=== PATIENT | female | born 1940 | race Caucasian/White ===

== ENCOUNTER 2023-07-30 22:30 | Emergency (ER) | payer MEDICARE, OTHER ==
[~2023-07-30] VITALS: Ht 172.7 cm; Wt 68.0 kg
[2023-07-30 23:30] VITALS: BP 143/50; TEMP 98.6
[2023-07-30 23:34] VITALS: PULSE 73; RESP 16; O2SAT 93
== END 2023-07-31 00:15 | disposition home or self-care (01) ==
LOC: ER 22:30 → EDBD 22:30 → ER 07-31 00:15
DX: T14.8XXA Other injury of unspecified body region, initial encounter (principal); M79.651 Pain in right thigh; M25.511 Pain in right shoulder; M25.551 Pain in right hip; Z88.2 Allergy status to sulfonamides; W18.39XA Other fall on same level, initial encounter; Y93.89 Activity, other specified; Y92.89 Other specified places as the place of occurrence of the external cause; Y99.8 Other external cause status
CPT/HCPCS: 73030; 73502; 73700; 93005

== ENCOUNTER 2023-11-07 16:11 | Inpatient (IN) | payer MEDICARE, OTHER ==
[~2023-11-07] VITALS: Ht 175.3 cm; Wt 124.7 kg
[2023-11-07 17:00] VITALS: PULSE 79; RESP 17; O2SAT 97
[2023-11-07] MEDS: ALBUTEROL SULF 2.5 MG/0.5ML(0.5%) NEB SOLN NEB ONE (17:45)
[2023-11-07] MEDS: IPRATROPIUM BROM 0.5 MG/2.5ML INH SOL NEB ONE (17:45)
[2023-11-07 17:55] LABS: Basophils % (auto) 0.7 % (0.0-2.0); Hematocrit 28.3 % (36.0-46.0); Hemoglobin 8.7 g/dL (12.2-16.2); Monocytes # (auto) 0.8 10 ^3/uL (0-1.3)
[2023-11-07 17:56] LABS: Basophils # (auto) 0.1 10 ^3/uL (0-0.2); Eosinophils # (auto) 0.2 10 ^3/uL (0-0.8); Lymphocytes # (auto) 1.1 10 ^3/uL (0.4-5.4); Lymphocytes % (auto) 14.5 % (10.0-50.0); Mean Corpuscular Hemoglobin 25.7 pg (28.0-32.0); Mean Corpuscular Hgb Conc. 30.8 g/dL (32.0-36.0); Mean Corpuscular Volume 83.2 fL (80.0-100.0); Monocytes % (auto) 10.9 % (0.0-12.0); Neutrophils # (auto) 5.3 10 ^3/uL (1.6-8.6); Neutrophils % (auto) 71.9 % (37.0-80.0); Red Cell Distribution Width 18.3 % (11.8-14.3); White Blood Cell 7.4 10^3/uL (4.4-10.8)
[2023-11-07 18:09] LABS: INR 1.36 (0.9-1.15); Partial Thromboplastin Time 27.7 SEC (24.5-34.5); Prothrombin Time 14.1 sec (9.3-11.8)
[2023-11-07 18:10] LABS: Alanine Aminotransferase 16 U/L (7-40); Albumin 3.3 g/dL (3.2-4.8); Alkaline Phosphatase 61 U/L (46-116); Anion Gap 5 (5-15); Aspartate Aminotransferase 20 U/L (13-40); BUN/Creatinine Ratio 25.4 (10.0-20.0); Blood Urea Nitrogen 18 mg/dL (9-23); Calcium 9.5 mg/dL (8.5-10.1); Carbon Dioxide 26 mmol/L (20-30); Chloride 113 mmol/L (98-107); Glucose 82 mg/dL (74-106); Potassium 3.8 mmol/L (3.5-5.1); Sodium 144 mmol/L (136-145)
[2023-11-07 18:11] LABS: Bilirubin, Total 0.6 mg/dL (0.2-1.0); Total Protein 5.6 g/dL (5.7-8.2)
[2023-11-07] MEDS: DexAMETHasone SOD PHOS 10MG/1ML VIAL INJ IV ONE (18:29)
[2023-11-07 19:30] VITALS: O2SAT 98
[2023-11-08] VITALS (10 sets, daily range): BP systolic 120–157; BP diastolic 54–75; PULSE 75–96; RESP 17–19; TEMP 97.8–98.3; O2SAT 95–99
[2023-11-08] MEDS: ALBUTEROL SULF 2.5 MG/0.5ML(0.5%) NEB SOLN NEB ONE (00:47)
[2023-11-08] MEDS: IPRATROPIUM BROM 0.5 MG/2.5ML INH SOL NEB ONE (00:47)
[2023-11-08] MEDS ORDERED: ACETAMINOPHEN 325 MG TAB PO PRN (02:30)
[2023-11-08] MEDS ORDERED: DOCUSATE SOD 100 MG CAP PO PRN (02:30)
[2023-11-08] MEDS ORDERED: IPRATROPIUM BROM 0.5 MG/2.5ML INH SOL NEB PRN (02:30)
[2023-11-08] MEDS ORDERED: HYDROcodone-ACET 5/325MG TAB PO PRN (02:30)
[2023-11-08] MEDS ORDERED: DEXTROSE (50%) 50ML SYRG IV PRN (02:30)
[2023-11-08] MEDS ORDERED: MORPHINE SULFATE INJ 2 MG/ml SYRG IV PRN (02:30)
[2023-11-08] MEDS ORDERED: ALBUTEROL SULF 2.5 MG/0.5ML(0.5%) NEB SOLN NEB PRN (02:30)
[2023-11-08] MEDS ORDERED: NITROGLYCERIN 0.4 MG SL TAB SL PRN (02:30)
[2023-11-08] MEDS ORDERED: ONDANSETRON HCL 4 MG/2 ML VIAL IV PRN (02:30)
[2023-11-08] MEDS: IOHEXOL 350 MG/ML 100ML IJ ONE (03:23)
[2023-11-08 03:48] LABS: Basophils # (auto) 0 10 ^3/uL (0-0.2); Basophils % (auto) 0.3 % (0.0-2.0); Eosinophils # (auto) 0 10 ^3/uL (0-0.8); Eosinophils % (auto) 0.1 % (0.0-7.0); Hemoglobin 8.5 g/dL (12.2-16.2); Lymphocytes # (auto) 0.4 10 ^3/uL (0.4-5.4); Mean Corpuscular Volume 82.4 fL (80.0-100.0); Monocytes # (auto) 0.1 10 ^3/uL (0-1.3); Red Blood Cells 3.32 10^6/uL (4.0-5.20)
[2023-11-08 03:50] LABS: Hematocrit 27.3 % (36.0-46.0); Lymphocytes % (auto) 6.2 % (10.0-50.0); Mean Corpuscular Hemoglobin 25.6 pg (28.0-32.0); Mean Corpuscular Hgb Conc. 31.1 g/dL (32.0-36.0); Monocytes % (auto) 1.6 % (0.0-12.0); Neutrophils # (auto) 5.9 10 ^3/uL (1.6-8.6); Neutrophils % (auto) 91.8 % (37.0-80.0); Red Cell Distribution Width 17.8 % (11.8-14.3); White Blood Cell 6.4 10^3/uL (4.4-10.8)
[2023-11-08 04:03] LABS: Alanine Aminotransferase 15 U/L (7-40); Albumin 3.1 g/dL (3.2-4.8); Alkaline Phosphatase 56 U/L (46-116); Anion Gap 5 (5-15); Aspartate Aminotransferase 17 U/L (13-40); BUN/Creatinine Ratio 30.6 (10.0-20.0); Blood Urea Nitrogen 22 mg/dL (9-23); Calcium 9.3 mg/dL (8.7-10.4); Carbon Dioxide 25 mmol/L (20-30); Chloride 111 mmol/L (98-107); Glucose 240 mg/dL (74-106); Potassium 4.3 mmol/L (3.5-5.1); Sodium 141 mmol/L (136-145)
[2023-11-08 04:04] LABS: Bilirubin, Total 0.6 mg/dL (0.2-1.0); Total Protein 5.6 g/dL (5.7-8.2)
[2023-11-08] MEDS: methylPREDNISolone SOD SUCC 40 MG/ML VL IV SCH (05:26)
[2023-11-08] MEDS: SODIUM CHLOR 0.9% PF (SALINE LOCK) 10ML VIAL/SYR IV SCH (05:26)
[2023-11-08] MEDS ORDERED: METH2.5T62 PO (06:10)
[2023-11-08] MEDS ORDERED: FOLI-119 PO (06:10)
[2023-11-08] MEDS ORDERED: LOSA-534 PO (06:10)
[2023-11-08] MEDS ORDERED: FUR20T PO (06:10)
[2023-11-08] MEDS ORDERED: LEVO125T7 PO (06:10)
[2023-11-08] MEDS: LEVOTHYROXINE SODIUM 50 MCG TAB PO SCH (06:34)
[2023-11-08] MEDS: ACCU-CHEK COMFORT CURVE STRIP VI SCH (06:38)
[2023-11-08] MEDS ORDERED: TIOT1AER2 INH (06:40)
[2023-11-08] MEDS ORDERED: FLUT1AER13 PO (06:40)
[2023-11-08] MEDS: InsuLIN REG 1unit/0.01ml Soln (100units/ml) SC SCH (06:47)
[2023-11-08] MEDS: MULTIPLE VITAMIN TAB PO SCH (09:22)
[2023-11-08] MEDS: FOLIC ACID 1 MG TAB PO SCH (09:22)
[2023-11-08] MEDS: FAMOTIDINE (10MG/ML) 2ML VL IV SCH (09:22)
[2023-11-09] VITALS (9 sets, daily range): BP systolic 139–161; BP diastolic 61–79; PULSE 66–75; RESP 16–20; TEMP 97.2–98.4; O2SAT 96–99
[2023-11-09 05:41] LABS: Basophils # (auto) 0 10 ^3/uL (0-0.2); Basophils % (auto) 0.1 % (0.0-2.0); Eosinophils # (auto) 0 10 ^3/uL (0-0.8); Mean Corpuscular Hemoglobin 25.5 pg (28.0-32.0); Monocytes # (auto) 0.6 10 ^3/uL (0-1.3)
[2023-11-09 05:43] LABS: Hematocrit 27.3 % (36.0-46.0); Hemoglobin 8.4 g/dL (12.2-16.2); Lymphocytes # (auto) 0.7 10 ^3/uL (0.4-5.4); Lymphocytes % (auto) 5.7 % (10.0-50.0); Mean Corpuscular Hgb Conc. 30.6 g/dL (32.0-36.0); Mean Corpuscular Volume 83.3 fL (80.0-100.0); Monocytes % (auto) 5.2 % (0.0-12.0); Neutrophils # (auto) 10.4 10 ^3/uL (1.6-8.6); Red Blood Cells 3.28 10^6/uL (4.0-5.20); Red Cell Distribution Width 18.8 % (11.8-14.3); White Blood Cell 11.7 10^3/uL (4.4-10.8)
[2023-11-09 05:58] LABS: Alanine Aminotransferase 14 U/L (7-40); Alkaline Phosphatase 54 U/L (46-116); Anion Gap 4 (5-15); Aspartate Aminotransferase 15 U/L (13-40); BUN/Creatinine Ratio 25.4 (10.0-20.0); Bilirubin, Total 0.6 mg/dL (0.2-1.0); Blood Urea Nitrogen 17 mg/dL (9-23); Calcium 9.2 mg/dL (8.7-10.4); Carbon Dioxide 25 mmol/L (20-30); Chloride 113 mmol/L (98-107); Glucose 210 mg/dL (74-106); Potassium 4.2 mmol/L (3.5-5.1); Sodium 142 mmol/L (136-145); Total Protein 5.5 g/dL (5.7-8.2)
[2023-11-09] MEDS: LOSARTAN POTASSIUM 50 MG TAB PO ONE (12:45)
[2023-11-09] MEDS: FUROSEMIDE 40 MG/4 ML VIAL IV ONE (12:45)
[2023-11-09] MEDS: methylPREDNISolone SOD SUCC 40 MG/ML VL IV SCH (23:31)
[2023-11-10 00:53] VITALS: BP 146/53; PULSE 67; RESP 20; TEMP 98; O2SAT 97
[2023-11-10 05:22] VITALS: BP 150/65; PULSE 64; RESP 20; TEMP 97.4; O2SAT 96
[2023-11-10 05:52] LABS: Anion Gap 2 (5-15); Carbon Dioxide 28 mmol/L (20-30); Chloride 114 mmol/L (98-107); Potassium 4.3 mmol/L (3.5-5.1); Sodium 144 mmol/L (136-145)
[2023-11-10 05:53] LABS: Calcium 9.1 mg/dL (8.7-10.4)
[2023-11-10 05:58] LABS: BUN/Creatinine Ratio 34.4 (10.0-20.0); Blood Urea Nitrogen 22 mg/dL (9-23); Glucose 207 mg/dL (74-106)
[2023-11-10 05:59] LABS: Magnesium 2.1 mg/dL (1.6-2.6)
[2023-11-10 07:57] VITALS: O2SAT 97
[2023-11-10 08:30] VITALS: PULSE 68; RESP 16
[2023-11-10 09:19] VITALS: BP 146/74; PULSE 62; RESP 21; TEMP 98.5; O2SAT 97
[2023-11-10 10:06] LABS: Urine Bacteria MANY /hpf (None Seen); Urine Blood Negative /uL (Negative); Urine Clarity Turbid (Clear); Urine Color Yellow (Yellow); Urine Mucus FEW (None Seen); Urine Protein, UAD Negative (Negative); Urine Specific Gravity 1.025 (1.001-1.035); Urine Urobilinogen Normal (Negative); Urine WBC 4 /hpf (0 - 5); Urine pH 5.5 (5.0-9.0)
[2023-11-10] MEDS ORDERED: METH4PAK PO (10:54)
[2023-11-10] MEDS ORDERED: CEPH500C PO (11:05)
[2023-11-10 13:00] VITALS: BP 138/87; PULSE 89; RESP 20; TEMP 98; O2SAT 95
[2023-11-10] MEDS: FUROSEMIDE 40 MG/4 ML VIAL IV SCH (13:17)
[2023-11-10] MEDS: CEPHALEXIN 250 MG CAP PO SCH (13:18)
[2023-11-10] MEDS: LOSARTAN POTASSIUM 50 MG TAB PO SCH (13:19)
== END 2023-11-10 14:30 | disposition home health service (06) | DRG 202 ==
LOC: ER 16:11 → TELE 11-08 02:31 → TELE-WESTW 11-08 05:41
PROVIDERS: ADMIT Nurse Practitioner Family; ATTEND Internal Medicine Geriatric Medicine
PROC: 5A09357 Assistance with Respiratory Ventilation, Less than 24 Consecutive Hours, Continuous Positive Airway Pressure (ICD-10-PCS; principal; 2023-11-08)
DX: J45.901 Unspecified asthma with (acute) exacerbation (principal); Z68.41 Body mass index [BMI] 40.0-44.9, adult; I50.9 Heart failure, unspecified; D64.9 Anemia, unspecified; E03.9 Hypothyroidism, unspecified; E11.51 Type 2 diabetes mellitus with diabetic peripheral angiopathy without gangrene; R01.1 Cardiac murmur, unspecified; E66.01 Morbid (severe) obesity due to excess calories; I11.0 Hypertensive heart disease with heart failure; Z88.2 Allergy status to sulfonamides; Z79.899 Other long term (current) drug therapy; R06.03 Acute respiratory distress
CPT/HCPCS: 36415; 71045; 71275; 80048; 80053; 81001; 82962; 83735; 83880; 84443; 84484; 85025; 85379; 85610; 85730; 87086; 93005; 93306; 94640; 94660; 97163; G0378; J1100; J1815; J3490

== ENCOUNTER 2023-11-27 11:03 | Inpatient (IN) | payer MEDICARE, OTHER ==
[~2023-11-27] VITALS: Ht 172.7 cm; Wt 118.0 kg
[2023-11-27] VITALS (7 sets, daily range): BP systolic 120–123; BP diastolic 42–50; PULSE 71–76; RESP 16–20; TEMP 97.9; O2SAT 95–97
[~2023-11-27 11:03] MED LIST: CEPH500C PO; FLUT1AER13 PO; FOLI-119 PO; FUR20T PO; LEVO125T7 PO; LOSA-534 PO; METH2.5T62 PO; METH4PAK PO; TIOT1AER2 INH
[2023-11-27 11:59] LABS: Urine Bacteria None Seen /hpf (None Seen)
[2023-11-27 12:10] LABS: Basophils # (auto) 0.1 10 ^3/uL (0-0.2); Basophils % (auto) 0.7 % (0.0-2.0); Eosinophils # (auto) 0.2 10 ^3/uL (0-0.8); Hematocrit 29.8 % (36.0-46.0); Lymphocytes % (auto) 12.5 % (10.0-50.0); Mean Corpuscular Hemoglobin 26.8 pg (28.0-32.0); Mean Corpuscular Hgb Conc. 30.1 g/dL (32.0-36.0); Monocytes % (auto) 12.5 % (0.0-12.0); Neutrophils # (auto) 5.6 10 ^3/uL (1.6-8.6); Neutrophils % (auto) 72.3 % (37.0-80.0); Red Blood Cells 3.34 10^6/uL (4.0-5.20); White Blood Cell 7.7 10^3/uL (4.4-10.8)
[2023-11-27 12:11] LABS: Red Cell Distribution Width 23.5 % (11.8-14.3)
[2023-11-27 12:17] LABS: Alanine Aminotransferase 20 U/L (7-40); Alkaline Phosphatase 60 U/L (46-116); Anion Gap 6 (5-15); Aspartate Aminotransferase 25 U/L (13-40); BUN/Creatinine Ratio 13.1 (10.0-20.0); Blood Urea Nitrogen 27 mg/dL (9-23); Calcium 7.7 mg/dL (8.5-10.1); Carbon Dioxide 26 mmol/L (20-30); Chloride 106 mmol/L (98-107); Glucose 168 mg/dL (74-106); Potassium 3.5 mmol/L (3.5-5.1); Sodium 138 mmol/L (136-145)
[2023-11-27 12:18] LABS: Albumin 2.3 g/dL (3.2-4.8); Bilirubin, Total 1.3 mg/dL (0.2-1.0); Total Protein 3.9 g/dL (5.7-8.2)
[2023-11-27 13:11] LABS: Urine Blood 1+ /uL (Negative); Urine Budding Yeast MANY /hpf (None Seen); Urine Clarity Ex.Turbid (Clear); Urine Color Orange (Yellow); Urine Mucus FEW (None Seen); Urine Protein, UAD 2+ (Negative); Urine Specific Gravity 1.024 (1.001-1.035); Urine Urobilinogen 2 mg/dL (Negative); Urine WBC 2215 /hpf (0 - 5); Urine WBC Clumps PRESENT /hpf (None Seen); Urine pH 5.5 (5.0-9.0)
[2023-11-27] MEDS ORDERED: DEXTROSE (50%) 50ML SYRG IV PRN (14:30)
[2023-11-27] MEDS ORDERED: SODIUM CHLORIDE 0.9% 1,000 ML IV SCH (14:30)
[2023-11-27] MEDS ORDERED: DOCUSATE SOD 100 MG CAP PO PRN (14:30)
[2023-11-27] MEDS ORDERED: METHOTREXATE 2.5 MG TAB PO SCH (14:45)
[2023-11-27] MEDS: NOREPINEPHRINE 8 MG/250ML KIT 250 ML IV SCH (16:07)
[2023-11-27] MEDS: SODIUM CHLORIDE 0.9% 1,000 ML IV SCH (16:07)
[2023-11-27] MEDS: levoFLOXacin 500MG 100 ML IV SCH (16:09)
[2023-11-27] MEDS: ACCU-CHEK COMFORT CURVE STRIP VI SCH (18:00)
[2023-11-27] MEDS: InsuLIN REG 1unit/0.01ml Soln (100units/ml) SC SCH (18:00)
[2023-11-27] MEDS ORDERED: HYDROcodone-ACET 5/325MG TAB PO PRN (19:15)
[2023-11-27 19:25] LABS: INR 1.51 (0.9-1.15); Prothrombin Time 15.5 sec (9.3-11.8)
[2023-11-27] MEDS: MORPHINE SULFATE INJ 2 MG/ml SYRG IV PRN (19:54)
[2023-11-27] MEDS: ONDANSETRON HCL 4 MG/2 ML VIAL IV PRN (19:56)
[2023-11-27] MEDS: MORPHINE SULFATE INJ 2 MG/ml SYRG ONE (19:56)
[2023-11-27] MEDS: IPRATROPIUM BROM 0.5 MG/2.5ML INH SOL NEB SCH (20:18)
[2023-11-27 21:40] LABS: Creatinine, Urine 341.74 mg/dL (30.0-125.0)
[2023-11-27] MEDS: PANTOPRAZOLE 40 MG/10 ML VIAL INJ IV SCH (22:00)
[2023-11-28] MEDS ORDERED: LEVOTHYROXINE SODIUM 50 MCG TAB PO SCH (07:00)
[2023-11-28] MEDS ORDERED: FOLIC ACID 1 MG TAB PO SCH (10:00)
[2023-11-28] MEDS ORDERED: levoFLOXacin 250MG 50 ML IV SCH (10:00)
== END 2023-11-27 23:31 | disposition short-term general hospital (02) | DRG 871 ==
LOC: EDUNIT# 11:03 → ER 11:03 → EDBD 11:03 → TELE 16:41
PROVIDERS: ADMIT Nurse Practitioner Family; ATTEND Nurse Practitioner Family
PROC: 06HY33Z Insertion of Infusion Device into Lower Vein, Percutaneous Approach (ICD-10-PCS; principal; 2023-11-27)
DX: A41.9 Sepsis, unspecified organism (principal); E43 Unspecified severe protein-calorie malnutrition; N17.9 Acute kidney failure, unspecified; E87.1 Hypo-osmolality and hyponatremia; E11.65 Type 2 diabetes mellitus with hyperglycemia; J45.909 Unspecified asthma, uncomplicated; E03.9 Hypothyroidism, unspecified; E83.51 Hypocalcemia; S81.802A Unspecified open wound, left lower leg, initial encounter; S81.801A Unspecified open wound, right lower leg, initial encounter; X58.XXXA Exposure to other specified factors, initial encounter; E11.51 Type 2 diabetes mellitus with diabetic peripheral angiopathy without gangrene; D64.9 Anemia, unspecified; I11.0 Hypertensive heart disease with heart failure; I50.9 Heart failure, unspecified; Z88.2 Allergy status to sulfonamides; Z79.2 Long term (current) use of antibiotics; Z79.899 Other long term (current) drug therapy; Y93.89 Activity, other specified; Y92.89 Other specified places as the place of occurrence of the external cause; Y99.8 Other external cause status; Z68.39 Body mass index [BMI] 39.0-39.9, adult
CPT/HCPCS: 36415; 36556; 71045; 76705; 80053; 81001; 82570; 83605; 84300; 84484; 85025; 85610; 86850; 86900; 86901; 87086; 87088; 87186; 93005; 93925; 93970; 96365; 96368; 99291; G0378; J1956; J2405

== ENCOUNTER 2024-04-24 09:45 | Inpatient (IN) | payer MEDICARE ==
[~2024-04-24] VITALS: Ht 152.4 cm; Wt 104.3 kg
[~2024-04-24 09:45] MED LIST changes: -FUR20T PO; +FURO20TA4 PO
[2024-04-24 10:00] VITALS: PULSE 93; RESP 15; O2SAT 98
--- NOTE | 2024-04-24 11:18 | ED.PDOC ---
HPI (NEURO) HPI Comments 83y F who presents to the ED for chief complaint of generalized weakness. Per EMS, pt lives with grandson and has home health nurse come and check on pt. Pt grandson noticed pt has been having increased weakness with noted slurred speech over the past 2 days and called pt daughter who is DARLING who told grandson to call EMS today.EMS states pt had 02 sat of 86% on room air and was placed on 2 L via nc. Pt in the ED, is ax0x3 but it is unknown if this is baseline but is it noted pt is bed bound. Pt states in the ED, she is feeling "fatigue" but denies any associated pain. Pt otherwise has stable vitals in the ED. Pt has noted history of non-alcoholic liver cirrhosis, hypothyroidism, DM, asthma,HTN, and CHF. Chief Complaint: General Weakness Time Seen by MD: 11:14 Primary Care Provider: UNKNOWN Reviewed Notes: Medications, Allergies Information Source: Patient, Emergency Med Personnel Mode of Arrival: EMS Brought in by: EMS Past Medical History PAST MEDICAL HISTORY: Asthma, CHF, DM, HTN, Thyroid Surgical History: Denies all surgeries ROCK STAR History: Denies all ROCK STAR Hx Family History Family History: Unknown Social History Smoker: Non-Smoker Alcohol: Denies ETOH Use Drugs: Denies Drug Use Lives In: Home Constitutional: reports: fatigue, malaise, weakness; denies: chills, diaphoresis, fever, sweats, others EENTM: denies: blurred vision, double vision, ear bleeding, ear discharge, ear drainage, ear pain, ear ringing, eye pain, eye redness, hearing loss, mouth pain, mouth swelling, nasal discharge, nose bleeding, nose congestion, nose pain, photophobia, tearing, throat pain, throat swelling, voice changes, others Respiratory: denies: cough, hemoptysis, orthopnea, SOB at rest, shortness of breath, SOB with excertion, stridor, wheezing, others Cardiovascular: denies: chest pain, dizzy spells, diaphoresis, Dyspnea on exertion, edema, irregular heart beat, left arm pain, lightheadedness, palpitations, PND, syncope, others Gastrointestinal: denies: abdomen distended, abdominal pain, blood streaked bowels, constipated, diarrhea, dysphagia, difficulty swallowing, hematemesis, melena, nausea, poor appetite, poor fluid intake, rectal bleeding, rectal pain, vomiting, others Genitourinary: denies: abnormal vagina bleeding, burning, dyspareunia, dysuria, flank pain, frequency, hematuria, incontinence, pain, , vagina discharge, urgency, others Neurological: reports: speech problems; denies: dizziness, fainting, headache, left sided numbness, left sided weakness, numbness, paresthesia, pre-existing deficit, right sided numbness, right sided weakness, seizure, tingling, tremors, weakness, others Musculoskeletal: denies: back pain, gout, joint pain, joint swelling, muscle pain, muscle stiffness, neck pain, others Integumetry: denies: bruises, change in color, change in hair/nails, dryness, laceration, lesions, lumps, rash, wounds, others Allergic/Immunocompromised: denies: Difficulty Healing, Frequent Infections, Hives, Itching, others Hematologic/Lymphatic: denies: anemia, blood clots, easy bleeding, easy bruising, swollen glands, others Endocrine: denies: excessive hunger, excessive sweating, excessive thirst, excessive urination, flushing, intolerance to cold, intolerance to heat, unexplained weight gain, unexplained weight loss, others Psychiatric: denies: anxiety, bipolar disorder, depression, hopeless, panic disorder, schizophrenia, sleepless, suicidal, others All Other Systems: Reviewed and Negative Physical Exam General Appearance: Mild Distress, Moderate Distress, Obese HEENT: Normal ENT Inspection, PERRL/EOMI, Other (Patient dehydrated very dry mucosa teeth) Neck: Full Range of Motion, Non-Tender Respiratory: Crackles, Decreased Breath Sounds, Expiration, Inspiration, No Respiratory Distress Cardiovascular: No Edema, No JVD, No Murmur, No Gallop, Normal Peripheral Pulses, Regular Rate/Rhythm Breast Exam: Deferred Gastrointestinal: No Organomegaly, Non Tender, No Pulsatile Mass, Normal Bowel Sounds, Soft, Other (Morbid obesity) Genitalia: Deferred Pelvic: Deferred Rectal: Deferred Extremities: Decreased range of motion, Inflammation, Leg edema, Pedal edema, Swelling Neurologic: Depressed Affect, Motor Weakness, Speech Problem Cerebellar Function: NOT DONE Reflexes: NOT DONE Skin: Bruises, Dry, Warm, Wounds Peripheral Pulses: 1+ carotid (R), 1+ carotid (L) Lymphatic: No Adenopathy EKG EKG : Pulse Rate (adult): 92 Sabin: LAD Cardiac Rhythm: NSR Block: RBBB Was a procedure done? Was a procedure done?: No Differential Diagnosis (SZ) Seizure: CVA/TIA, Hypocalcemia, Hypoglycemia, Hyponatremia, Mass Lesion CVA: Electrolyte Imbalance, Hypoglycemia, Mass Lesion, TIA General Weakness: Anemia, Dehydration, Dysrhythmia, Electrolyte imbalance, Hyp oglycemia, Hypotension, Hypovolemia, Renal failure, Repiratory failure, TIA, Other (UTI, urosepsis, liver disease, cirrhosis, hyperammonemia, ) Headache: Mass Lesion X-Ray, Labs, Meds, VS Vital Signs Date Time Temp Pulse Resp B/P (MAP) Pulse Ox O2 Delivery O2 Flow Rate FiO2 04/24/24 14:00 98.3 89 13 114/62 (79) 99 98.3 04/24/24 12:15 96.5 89 14 102/57 (72) 98 96.5 04/24/24 11:46 92 04/24/24 11:22 91 04/24/24 10:00 93 15 130/27 (61) 98 04/24/24 10:00 93 15 98 Room Air* 0 21 04/24/24 09:51 92 04/24/24 09:47 97.8 68 16 125/82 (96) 97 Lab Test 04/24/24 13:43 04/24/24 12:10 04/24/24 11:15 Range/Units Urine Color Yellow Yellow Urine Clarity Turbid H Clear Urine pH 6.5 5.0-9.0 Urine Specific [place] 1.017 1.001-1.035 Urine Protein Trace H Negative Urine Ketones 1+ H Negative Urine Blood Trace H Negative /uL Urine Nitrite Negative Negative Urine Bilirubin Negative Negative Urine Urobilinogen Normal Negative mg/dL Urine Leukocyte Esterase 3+ Negative /uL Urine RBC 1 0 - 4 /hpf Urine WBC 91 0 - 5 /hpf Urine Squamous Epithelial Cells Few <5 /hpf Urine Bacteria Few H None Seen /hpf Urine Hyaline Casts Few 0 - 2 /lpf Urine Mucus Few None Seen Urine Glucose Normal Normal mg/dL Sodium Level 141 136-145 mmol/L Potassium Level 4.0 3.5-5.1 mmol/L Chloride Level 112 H 98-107 mmol/L Carbon Dioxide Level 19 L 20-31 mmol/L Anion Gap 10 5-15 Blood Urea Nitrogen 27 H 9-23 mg/dL Creatinine 1.38 H 0.550-1.02 mg/dL Glomerular Filtration Rate Calc 38 >90 mL/min BUN/Creatinine Ratio 19.6 10.0-20.0 Serum Glucose 124 H 74-106 mg/dL Calcium Level 9.1 8.7-10.4 mg/dL Magnesium Level 1.9 1.6-2.6 mg/dL Total Bilirubin 1.3 H 0.2-1.0 mg/dL Aspartate Amino Transferase (AST) 24 13-40 U/L Alanine Aminotransferase (ALT) 13 7-40 U/L Alkaline Phosphatase 62 46-116 U/L Total Protein 5.8 5.7-8.2 g/dL Albumin 2.7 L 3.2-4.8 g/dL White Blood Count 8.3 4.4-10.8 10^3/uL Red Blood Count 4.72 4.0-5.20 10^6/uL Hemoglobin 12.5 12.2-16.2 g/dL Hematocrit 38.2 36.0-46.0 % Mean Corpuscular Volume 80.8 80.0-100.0 fL Mean Corpuscular Hemoglobin 26.6 L 28.0-32.0 pg Mean Corpuscular Hemoglobin Concent 32.9 32.0-36.0 g/dL Red Cell Distribution Width 17.8 H 11.8-14.3 % Platelet Count 149 140-450 10^3/uL Mean Platelet Volume 7.5 6.9-10.8 fL Neutrophils (%) (Auto) 73.1 37.0-80.0 % Lymphocytes (%) (Auto) 10.8 10.0-50.0 % Monocytes (%) (Auto) 12.1 H 0.0-12.0 % Eosinophils (%) (Auto) 2.8 0.0-7.0 % Basophils (%) (Auto) 1.2 0.0-2.0 % Neutrophils # (Auto) 6.1 1.6-8.6 10 ^3/uL Lymphocytes # (Auto) 0.9 0.4-5.4 10 ^3/uL Monocytes # (Auto) 1.0 0-1.3 10 ^3/uL Eosinophils # (Auto) 0.2 0-0.8 10 ^3/uL Basophils # (Auto) 0.1 0-0.2 10 ^3/uL Nucleated Red Blood Cells 0.2 % Troponin I High Sensitivity 13 </=34 ng/L Current Medications Medications (Trade) Dose Ordered Sig/Edgar Route Start Time Stop Time Status Last Admin Sodium Chloride 1,000 ml @ 1,000 mls/hr Q1H ONCE IVB 04/24/24 11:00 04/24/24 11:59 DC 04/24/24 11:43 [place] [id number] Ph: [phone] DIAGNOSTIC IMAGING Diagnostic Imaging Report : [id number] Signed PATIENT: KIKA ODELL ACCT: [id number] UNIT: [id number] : 1940 LOC: ER ROOM / BED: / AGE / SEX: 83 / F ADM STATUS: REG ER SERVICE [id number] ORDERING PHYSICIAN: MARTINE SERRANO MD PROCEDURE(s): HWOCT - HEAD WITHOUT CONTRAST REASON: Lethargy and slurred speech ORDER NUMBER(s): [id number], ACCESSION NUMBER(s): [id number] EXAM: CT HEAD WITHOUT CONTRAST INDICATION: Lethargy and slurred speech TECHNIQUE: CT of the head without intravenous contrast. Coronal and sagittal reformatted images are submitted. Radiation Dose : 1. Head: CT Dose: CTDI volume is 66.47 mGy. Dose-length product is 1309.58 mGy*cm The dose indicators for CT are the volume Computed Tomography (CT) Dose Index (CTDIvol) and the Dose Length Product (DLP), and are measured in units of mGy and mGy-cm, respectively. These indicators are not patient dose, but values generated from the CT scanner acquisition factors. The report includes radiation exposure data for exposures received during this examination. All CT scans at this medical facility are performed using dose modulation techniques as appropriate to a performed exam including the following: Automated exposure control was utilized; adjustment of the MA and/or KV according to patient size; and use of iterative reconstruction technique. COMPARISON: None FINDINGS: There is no evidence of acute intracranial hemorrhage, extra-axial collection, mass effect, midline shift, herniation or hydrocephalus. There is atrophy in the bilateral frontal lobes resulting in prominence of the extra-axial spaces. There is slightly higher than CSF attenuation extra-axial fluid in the left and right frontal lobe which measure to 6 mm on the left and 4 mm on the right. The ventricles, sulci and cisterns are age appropriate. The olvera-white differentiation is intact. The visualized paranasal sinuses and mastoid air cells are clear. No depressed calvarial fracture. The surrounding soft tissues are unremarkable. IMPRESSION: 1. Bilateral extra-axial fluid collections in the frontal lobes measuring slig htly higher than CSF attenuation. These may represent late subacute or chronic subdural hematomas. No mass effect or midline shift. MRI of the brain may be obtained for further evaluation. 2. No evidence of major territory acute infarct. ATED BY: PHYLLIS DIMAS MD DICTATED DATE/TIME: 04/24/241216 SIGNED BY: PHYLLIS DIMAS MD SIGNED DATE/TIME: 04/24/241216 CC: [place] [id number] Ph: [phone] DIAGNOSTIC IMAGING Diagnostic Imaging Report : [id number] Signed PATIENT: KIKA ODELL ACCT: [id number] UNIT: [id number] : 1940 LOC: ER ROOM / BED: / AGE / SEX: 83 / F ADM STATUS: REG ER SERVICE 105 ORDERING PHYSICIAN: MARTINE SERRANO MD PROCEDURE(s): CXRP - CHEST PORTABLE REASON: Generalized weakness dehydration ORDER NUMBER(s): [id number], ACCESSION NUMBER(s): [id number] CHEST RADIOGRAPH Indication:Generalized weakness dehydration Technique: Single frontal view of the chest was obtained COMPARISON: XY CHEST XRAY 1 VIEW on DOS: 11/27/23, XY CHEST PORTABLE on DOS: 11/07/23 FINDINGS: Lines and Tubes: None Lungs: Multifocal airspace disease. Pleura: No effusion. No pneumothorax. Cardiomediastinal contours: Cardiomegaly. Bones: Unremarkable IMPRESSION: Multifocal airspace disease, [id number]-right. Findings may represent a combination of pulmonary edema and multifocal infection. Clinical correlation advised. ATED BY: JASON VANESSA MD DICTATED DATE/TIME: 04/24/24 1221 SIGNED BY: JASON VANESSA MD SIGNED DATE/TIME: 04/24/24 1221 CC: X-Ray, Labs, Meds, VS Comment Course in the emergency department eventful patient came in as generalized weakness lethargy and slurred speech The chest x-ray shows cardiomegaly with a multiple airspace disease with a combination of pulmonary edema and infection The EKG shows normal sinus rhythm at 92 with left axis deviation right bundle- branch block CBC is normal Urine shows 1+ ketones and 3+ leukocyte esterase with bacteria CMP GFR at 38 blood sugar at 124 Magnesium 1.9 Troponin [address] head shows fluid collection in frontal lobes with no other pathology Patient will be admitted for further care Time of 1ST Reevaluation: 11:45 Reevaluation 1ST: Unchanged Patient Education/Counseling: Diagnosis, Treatment Family Education/Counseling: No Family Present Departure 1 Departure Time of Disposition: 15:02 Impression: Primary Impression: Generalized weakness Additional Impressions: UTI (urinary tract infection) Pulmonary vascular congestion Opacities of both lungs present on chest x-ray Morbid obesity Severe protein-calorie malnutrition Diabetic nephropathy associated with type 2 diabetes mellitus Disposition: ADMITTED INPATIENT Admit to: [facility] Condition: Serious Critical Care Note Critical Care Time?: No Stability Stability form required: Yes Unstable for transfer: Telemetry monitoring (Telemetry monitoring required), Requires medication Heart Score Heart Score: Heart Score Response (Comments) Value History Slightly Suspicious 0 EKG Repolarization Disturb 1 Age >65 2 Risk Factors >3 or Hx ASHD 2 Troponin Normal limit 0 Total 5 I personally scribed for MARTINE SERRANO MD ([email or web address]) on 04/24/24 at 11:18. Electronically submitted by Nelly Deleon ([email or web address]). I personally scribed for MARTINE SERRANO MD ([email or web address]) on 04/24/24 at 12:29. Electronically submitted by Nelly Deleon ([email or web address]). MARTINE SERRANO MD Apr 24, 2024 11:18
[2024-04-24 11:29] LABS: Basophils # (auto) 0.1 10 ^3/uL (0-0.2); Eosinophils # (auto) 0.2 10 ^3/uL (0-0.8); Mean Corpuscular Hemoglobin 26.6 pg (28.0-32.0); Mean Corpuscular Hgb Conc. 32.9 g/dL (32.0-36.0); Mean Corpuscular Volume 80.8 fL (80.0-100.0)
[2024-04-24 11:31] LABS: Basophils % (auto) 1.2 % (0.0-2.0); Eosinophils % (auto) 2.8 % (0.0-7.0); Hematocrit 38.2 % (36.0-46.0); Hemoglobin 12.5 g/dL (12.2-16.2); Lymphocytes # (auto) 0.9 10 ^3/uL (0.4-5.4); Lymphocytes % (auto) 10.8 % (10.0-50.0); Monocytes % (auto) 12.1 % (0.0-12.0); Neutrophils # (auto) 6.1 10 ^3/uL (1.6-8.6); Neutrophils % (auto) 73.1 % (37.0-80.0); Nucleated Red Blood Cells % 0.2 %; Platelet Count (auto) 149 10^3/uL (140-450); Red Blood Cells 4.72 10^6/uL (4.0-5.20); Red Cell Distribution Width 17.8 % (11.8-14.3); White Blood Cell 8.3 10^3/uL (4.4-10.8)
[2024-04-24] MEDS: SODIUM CHLORIDE 0.9% 1,000 ML IVB ONE (11:43)
--- NOTE | 2024-04-24 12:20 | DVH ---
EXAM: CT HEAD WITHOUT CONTRAST INDICATION: Lethargy and slurred speech TECHNIQUE: CT of the head without intravenous contrast. Coronal and sagittal reformatted images are submitted. Radiation Dose : 1. Head: CT Dose: CTDI volume is 66.47 mGy. Dose-length product is 1309.58 mGy*cm The dose indicators for CT are the volume Computed Tomography (CT) Dose Index (CTDIvol) and the Dose Length Product (DLP), and are measured in units of mGy and mGy-cm, respectively. These indicators are not patient dose, but values generated from the CT scanner acquisition factors. The report includes radiation exposure data for exposures received during this examination. All CT scans at this medical facility are performed using dose modulation techniques as appropriate to a performed exam including the following: Automated exposure control was utilized; adjustment of the MA and/or KV according to patient size; and use of iterative reconstruction technique. COMPARISON: None FINDINGS: There is no evidence of acute intracranial hemorrhage, extra-axial collection, mass effect, midline s hift, herniation or hydrocephalus. There is atrophy in the bilateral frontal lobes resulting in prominence of the extra-axial spaces. T here is slightly higher than CSF attenuation extra-axial fluid in the left and right frontal lobe whi ch measure to 6 mm on the left and 4 mm on the right. The ventricles, sulci and cisterns are age appropriate. The olvera-white differentiation is intact. The visualized paranasal sinuses and mastoid air cells are clear. No depressed calvarial fracture. The surrounding soft tissues are unremarkable. IMPRESSION: 1. Bilateral extra-axial fluid collections in the frontal lobes measuring slightly higher than CSF at tenuation. These may represent late subacute or chronic subdural hematomas. No mass effect or midlin e shift. MRI of the brain may be obtained for further evaluation. 2. No evidence of major territory acute infarct.
--- NOTE | 2024-04-24 12:25 | DVH ---
CHEST RADIOGRAPH Indication:Generalized weakness dehydration Technique: Single frontal view of the chest was obtained COMPARISON: XY CHEST XRAY 1 VIEW on DOS: 11/27/23, XY CHEST PORTABLE on DOS: 11/07/23 FINDINGS: Lines and Tubes: None Lungs: Multifocal airspace disease. Pleura: No effusion. No pneumothorax. Cardiomediastinal contours: Cardiomegaly. Bones: Unremarkable IMPRESSION: Multifocal airspace disease, [id number]-right. Findings may represent a combination of pulmon pascual edema and multifocal infection. Clinical correlation advised.
[2024-04-24 12:37] LABS: Alanine Aminotransferase 13 U/L (7-40); Albumin 2.7 g/dL (3.2-4.8); Alkaline Phosphatase 62 U/L (46-116); Anion Gap 10 (5-15); Aspartate Aminotransferase 24 U/L (13-40); BUN/Creatinine Ratio 19.6 (10.0-20.0); Blood Urea Nitrogen 27 mg/dL (9-23); Calcium 9.1 mg/dL (8.7-10.4); Carbon Dioxide 19 mmol/L (20-31); Chloride 112 mmol/L (98-107); Glucose 124 mg/dL (74-106); Magnesium 1.9 mg/dL (1.6-2.6); Sodium 141 mmol/L (136-145)
[2024-04-24 12:38] LABS: Bilirubin, Total 1.3 mg/dL (0.2-1.0); Total Protein 5.8 g/dL (5.7-8.2)
[2024-04-24 13:57] LABS: Urine Bacteria FEW /hpf (None Seen); Urine Blood TRACE /uL (Negative); Urine Clarity Turbid (Clear); Urine Color Yellow (Yellow); Urine Hyaline Cast FEW /lpf (0 - 2); Urine Mucus FEW (None Seen); Urine Protein, UAD TRACE (Negative); Urine Specific Gravity 1.017 (1.001-1.035); Urine Urobilinogen Normal (Negative); Urine WBC 91 /hpf (0 - 5); Urine pH 6.5 (5.0-9.0)
[2024-04-24] MEDS: cefTRIAXone 1GM/50ML D5W 50 ML IV ONE (16:02)
[2024-04-24] MEDS: SPIRONOLACTONE 25 MG TAB PO ONE (16:02)
[2024-04-24] MEDS: FUROSEMIDE 20 MG/2 ML VIAL IV ONE (16:05)
--- NOTE | 2024-04-24 18:54 | ECG ---
[facility] Test Date: 2024-04-24 Test Time: 09:48:56 Pat Name: KIKA ODELL Department: ED Room: 0207T Gender: F Truck Mechanic: TELMA : 1940 Requested By: MARTINE SERRANO Order Number: [id number] Reading MD: Chance Muñiz Measurements Intervals [place] Heart Rate: 92 P: 0 MD: 150 QRS: -58 QRSD: 140 T: 97 QT: 414 QTc: 513 Interpretive Statements Sinus rhythm RBBB and LAFB LVH with secondary repolarization abnormality Artifact in lead(s) I,II,III,aVR,aVL,V2 Electronically Signed On 04-29-2024 10:12:52 PST by Chance Muñiz Please click the below link to view image of tracing.
[2024-04-24 19:35] VITALS: PULSE 87; RESP 20; O2SAT 98
[2024-04-24] MEDS ORDERED: HYDROcodone-ACET 5/325MG TAB PO PRN (22:00)
[2024-04-24] MEDS ORDERED: DOCUSATE SOD 100 MG CAP PO PRN (22:00)
[2024-04-24] MEDS: DOXYCYCLINE 100MG/250ML 250 ML IV SCH (22:00)
[2024-04-24] MEDS ORDERED: DEXTROSE (50%) 50ML SYRG IV PRN (22:00)
[2024-04-24] MEDS ORDERED: ONDANSETRON HCL 4 MG/2 ML VIAL IV PRN (22:00)
[2024-04-24] MEDS: SODIUM CHLOR 0.9% PF (SALINE LOCK) 10ML VIAL/SYR IV SCH (22:00)
[2024-04-24] MEDS ORDERED: ACETAMINOPHEN 325 MG TAB PO PRN (22:00)
--- NOTE | 2024-04-24 22:40 | DVHHP2 ---
History of Present Illness Reason for Visit: Generalized weakness History of Present Illness The patient is a 83-year-old female with past medical history of asthma, CHF, DM, hypertension, and thyroid disease who presented to [facility] ED for evaluation of generalized weakness. Patient's grandson noticed patient has been having increased weakness, fatigue, slurred speech over the past 2 days, shortness of breaths, getting worse that prompted this visit. Patient was seen and evaluated in the ED, laboratory data shows WBC 8.3, platelets 149, sodium 141, potassium 4.0, BUN 27, creatinine 1.38, glucose 124, BNP 58.22, troponin 13, total bilirubin 1.3, albumin 2.7, urinalysis positive for urinary tract infection. Chest x-ray and revealing multifocal airspace disease, left greater than right, finding may represent a combination of pulmonary edema and multifocal infection. Patient was started on IV antibiotic regimen Rocephin, please see medication orders section in the computer. On my assessment, patient denied chest pain, no headache, no dizziness, no shortness of breath, no nausea, no vomiting, no fever, no chills. Patient was admitted for further evaluation and medical management. Past Medical History Asthma, CHF, DM, HTN, Thyroid disease Past Surgical History Denies all surgeries Family History Reviewed, noncontributory to the management of this case. Past Social History The patient lives at home, denies smoking, alcohol or illicit drugs abuse. Review of Systems Constitutional: Yes: Weakness, Malaise, Other (Fatigue); No: Fever, Chills, Sweats Eyes: No: Pain, Vision change, Conjunctivae inflammation, Eyelid inflammation, Other, Redness ENT: No: Ear pain, Ear discharge, Nose pain, Nose discharge, Nose congestion, Mouth pain, Mouth swelling, Throat pain, Throat swelling, Other Respiratory: No: Cough, Dry, Shortness of breath, SOB with excertion, Wheezing, Hemoptysis, Pleuritic Pain, Sputum, Wheezing, Other Cardiovascular: No: Chest Pain, Palpitations, Orthopnea, Paroxysmal Noc. Dyspnea, Edema, Lt Headedness, Other Gastrointestinal: No: Nausea, Vomiting, Abdominal Pain, Diarrhea, Constipation, Melena, Hematochezia, Other Genitourinary: No Dysuria, No Frequency, No Incontinence, No Hematuria, No Retention, No Other Musculoskeletal: No: other, neck pain, shoulder pain, arm pain, back pain, hand pain, leg pain, foot pain Skin: No: Rash, Lesions, Jaundice, Bruising, Other Neurological: Other (Speech problem); No: Weakness, Numbness, Incoordination, Change in speech, Confusion, Seizures Allergies: Coded Allergies: Sulfa Antibiotics (Verified Allergy, Unknown, 07/30/23) Medications Current Medications Medications Dose Ordered Sig/Edgar Route Start Time Stop Time Status Last Admin Dose Admin Levothyroxine Sodium 125 mcg QAM@0600 PO 04/25/24 06:00 Carvedilol 3.125 mg Q12HR PO 04/24/24 22:00 Furosemide 20 mg DAILY IV 04/25/24 10:00 Ceftriaxone Sodium 50 ml @ 100 mls/hr DAILY@09 IV 04/25/24 09:00 Doxycycline Hyclate 250 ml @ 125 mls/hr Q12H IV 04/24/24 22:00 Diagnostic Test (Pha) 1 strip ACHS 04/24/24 22:00 Insulin Human Regular ACHS SC 04/24/24 22:00 Dextrose 50 ml UD PRN IV 04/24/24 22:00 Sodium Chloride 10 ml Q8HR IV 04/24/24 22:00 Acetaminophen/ Hydrocodone Bitart 1 tab Q4HP PRN PO 04/24/24 22:00 Ondansetron HCl 4 mg Q4HP PRN IV 04/24/24 22:00 Docusate Sodium 100 mg BIDPRN PRN PO 04/24/24 22:00 Acetaminophen 500 mg Q6HP PRN PO 04/24/24 22:00 Aspirin 81 mg DAILY PO 04/25/24 10:00 Exam Vital Signs Vital Signs Date Time Temp Pulse Resp B/P (MAP) Pulse Ox O2 Delivery O2 Flow Rate FiO2 04/24/24 20:00 97 04/24/24 19:49 11 110/39 (62) 98 04/24/24 19:35 Room Air* 0 21 04/24/24 14:00 98.3 98.3 General Appearance: Alert, Oriented X3, Cooperative, No acute distress HEENT: Atraumatic, PERRLA, EOMI, Mucous membr. moist/pink Respiratory: Clear to auscultation, Normal air movement Cardiovascular: Regular rate, Normal S1, Normal S2, No murmurs Abdominal: Normal bowel sounds, Soft, No tenderness, No hepatospenomegaly, No masses Extremities: No clubbing, No cyanosis, No edema, Normal pulses, No tenderness/swelling Skin: No rashes, No breakdown, No significant lesion Neuro: Normal speech, Normal tone, Sensation intact, Cranial nerves 3-12 NL, Reflexes 2+, Other (Generalized weakness) Psych/Mental Status: Mental status NL, Mood NL Labs/Xrays Labs Test 04/24/24 13:43 04/24/24 12:10 04/24/24 11:15 Range/Units Urine Color Yellow Yellow Urine Clarity Turbid H Clear Urine pH 6.5 5.0-9.0 Urine Specific Stella 1.017 1.001-1.035 Urine Protein Trace H Negative Urine Ketones 1+ H Negative Urine Blood Trace H Negative /uL Urine Nitrite Negative Negative Urine Bilirubin Negative Negative Urine Urobilinogen Normal Negative mg/dL Urine Leukocyte Esterase 3+ Negative /uL Urine RBC 1 0 - 4 /hpf Urine WBC 91 0 - 5 /hpf Urine Squamous Epithelial Cells Few <5 /hpf Urine Bacteria Few H None Seen /hpf Urine Hyaline Casts Few 0 - 2 /lpf Urine Mucus Few None Seen Urine Glucose Normal Normal mg/dL Sodium Level 141 136-145 mmol/L Potassium Level 4.0 3.5-5.1 mmol/L Chloride Level 112 H 98-107 mmol/L Carbon Dioxide Level 19 L 20-31 mmol/L Anion Gap 10 5-15 Blood Urea Nitrogen 27 H 9-23 mg/dL Creatinine 1.38 H 0.550-1.02 mg/dL Glomerular Filtration Rate Calc 38 >90 mL/min BUN/Creatinine Ratio 19.6 10.0-20.0 Serum Glucose 124 H 74-106 mg/dL Calcium Level 9.1 8.7-10.4 mg/dL Magnesium Level 1.9 1.6-2.6 mg/dL Total Bilirubin 1.3 H 0.2-1.0 mg/dL Aspartate Amino Transferase (AST) 24 13-40 U/L Alanine Aminotransferase (ALT) 13 7-40 U/L Alkaline Phosphatase 62 46-116 U/L Total Protein 5.8 5.7-8.2 g/dL Albumin 2.7 L 3.2-4.8 g/dL White Blood Count 8.3 4.4-10.8 10^3/uL Red Blood Count 4.72 4.0-5.20 10^6/uL Hemoglobin 12.5 12.2-16.2 g/dL Hematocrit 38.2 36.0-46.0 % Mean Corpuscular Volume 80.8 80.0-100.0 fL Mean Corpuscular Hemoglobin 26.6 L 28.0-32.0 pg Mean Corpuscular Hemoglobin Concent 32.9 32.0-36.0 g/dL Red Cell Distribution Width 17.8 H 11.8-14.3 % Platelet Count 149 140-450 10^3/uL Mean Platelet Volume 7.5 6.9-10.8 fL Neutrophils (%) (Auto) 73.1 37.0-80.0 % Lymphocytes (%) (Auto) 10.8 10.0-50.0 % Monocytes (%) (Auto) 12.1 H 0.0-12.0 % Eosinophils (%) (Auto) 2.8 0.0-7.0 % Basophils (%) (Auto) 1.2 0.0-2.0 % Neutrophils # (Auto) 6.1 1.6-8.6 10 ^3/uL Lymphocytes # (Auto) 0.9 0.4-5.4 10 ^3/uL Monocytes # (Auto) 1.0 0-1.3 10 ^3/uL Eosinophils # (Auto) 0.2 0-0.8 10 ^3/uL Basophils # (Auto) 0.1 0-0.2 10 ^3/uL Nucleated Red Blood Cells 0.2 % Troponin I High Sensitivity 13 </=34 ng/L PATIENT: KIKA ODELL ACCT: [id number] UNIT: [id number] : 1940 LOC: ER ROOM / BED: / AGE / SEX: 83 / F ADM STATUS: REG ER SERVICE 1058 ORDERING PHYSICIAN: MARTINE SERRANO MD PROCEDURE(s): HWOCT - HEAD WITHOUT CONTRAST REASON: Lethargy and slurred speech ORDER NUMBER(s): [id number], ACCESSION NUMBER(s): [id number] EXAM: CT HEAD WITHOUT CONTRAST INDICATION: Lethargy and slurred speech TECHNIQUE: CT of the head without intravenous contrast. Coronal and sagittal reformatted images are submitted. Radiation Dose: 1. Head: CT Dose: CTDI volume is 66.47 mGy. Dose-length product is 1309.58 mGy*cm The dose indicators for CT are the volume Computed Tomography (CT) Dose Index (CTDIvol) and the Dose Length Product (DLP), and are measured in units of mGy and mGy-cm, respectively. These indicators are not patient dose, but values generated from the CT scanner acquisition factors. The report includes radiation exposure data for exposures received during this examination. All CT scans at this medical facility are performed using dose modulation techniques as appropriate to a performed exam including the following: Automated exposure control was utilized; adjustment of the MA and/or KV according to patient size; and use of iterative reconstruction technique. COMPARISON: None FINDINGS: There is no evidence of acute intracranial hemorrhage, extra-axial collection, mass effect, midline shift, herniation or hydrocephalus. There is atrophy in the bilateral frontal lobes resulting in prominence of the extra-axial spaces. There is slightly higher than CSF attenuation extra-axial fluid in the left and right frontal lobe which measure to 6 mm on the left and 4 mm on the right. The ventricles, sulci and cisterns are age appropriate. The olvera-white differentiation is intact. The visualized paranasal sinuses and mastoid air cells are clear. No depressed calvarial fracture. The surrounding soft tissues are unremarkable. IMPRESSION: 1. Bilateral extra-axial fluid collections in the frontal lobes measuring slightly higher than CSF attenuation. These may represent late subacute or chronic subdural hematomas. No mass effect or midline shift. MRI of the brain may be obtained for further evaluation. 2. No evidence of major territory acute infarct. ORDERING PHYSICIAN: MARTINE SERRANO MD PROCEDURE(s): CXRP - CHEST PORTABLE REASON: Generalized weakness dehydration ORDER NUMBER(s): [id number], ACCESSION NUMBER(s): [id number] CHEST RADIOGRAPH Indication:Generalized weakness dehydration Technique: Single frontal view of the chest was obtained COMPARISON: XY CHEST XRAY 1 VIEW on DOS: 11/27/23, XY CHEST PORTABLE on DOS: 11/07/23 FINDINGS: Lines and Tubes: None Lungs: Multifocal airspace disease. Pleura: No effusion. No pneumothorax. Cardiomediastinal contours: Cardiomegaly. Bones: Unremarkable IMPRESSION: Multifocal airspace disease, [id number]. Findings may represent a combination of pulmonary edema and multifocal infection. Clinical correlation advised. Assessment/Plan Assessment/Plan Generalized weakness UTI (urinary tract infection) Pulmonary vascular congestion Morbid obesity Pneumonia, unspecified organism Severe protein-calorie malnutrition Diabetic nephropathy associated with type 2 diabetes mellitus Plan 1. Admit to telemetry unit 2. Breathing treatment 3. Pain control management 4. IV antibiotic management 5. Management of fluids and electrolytes 6. Consultation for hospitalist 7. Diagnostic test head CT 8. DVT prophylaxis-on aspirin 9. Repeat labs CBC, CMP in a.m. 10. Home medication reviewed and reconciled 11. Continue with current medical management 12. Treatment plan discussed with patient and RN. Patient verbalized understanding. Plan discussed with: Patient, Other (RN) My Orders Orders - STEPHANIA KILGORE DNP Procedure Category Date Status Time B-Type Natriuretic LAB 04/24/24 In Process Peptide 21:55 Consistent DIET 04/25/24 Transmitted Carb(Ccho)Diabetes Breakfast Thyroid Stimulating LAB 04/24/24 In Process Hormone 21:55 Levothyroxine Tablet PHA 04/25/24 In Process (Synthroid Tablet) 06:00 Carvedilol Tablet PHA 04/24/24 In Process (Coreg Tablet) 22:00 Furosemide Injection PHA 04/25/24 In Process (Lasix Injection) 10:00 Ceftriaxone 1gm/50ml PHA 04/25/24 In Process D5w (Rocephin) 09:00 Doxycycline PHA 04/24/24 In Process 100mg/250ml 22:00 Urine Bacterial TYE 04/24/24 Logged Culture 21:55 Glucose Blood PHA 04/24/24 In Process (Accu-Chek Comfort 22:00 Insulin R (Human) PHA 04/24/24 In Process (Insulin R) 22:00 Dextrose 50% Syringe PHA 04/24/24 In Process 22:00 Allergies SABINE 04/24/24 In Process 21:55 Code Status CODE 04/24/24 Transmitted 21:55 Sodium Chloride Lock PHA 04/24/24 In Process (Saline Lock Ns) 22:00 Oxygen Per Hour RT 04/24/24 Transmitted 21:55 Hydrocodone-Acet PHA 04/24/24 In Process 5/325mg Tab ([place] 22:00 Ondansetron Hcl PHA 04/24/24 In Process (Zofran) 22:00 Docusate Sodium PHA 04/24/24 In Process Capsule (Colace 22:00 Fall Risk Precautions SABINE 04/24/[address] 21:55 Complete Blood Count LAB 04/25/24 Verified 04:00 Comprehensive LAB 04/25/24 Verified Metabolic Panel 04:00 Condition: Serious SABINE 04/24/24 In Process 21:55 Acetaminophen Tablet [facility] 04/24/24 In Process (Tylenol Tablet) 22:00 Sequential SABINE 04/24/24 In Process Compression Device Aspirin Tablet PHA 04/25/24 In Process 10:00 Albumin 25% (Albutein) PHA 04/24/24 In Process 22:00 Admit ADMIT 04/24/24 Verified 22:39 Nitroglycerin [facility] 04/24/24 Verified Sublingual (Ntrostat 22:45 Morphine Sulfate [facility] 04/24/24 Verified Injection 22:45 Notify Md Of Changes [facility] 04/24/24 Verified From Base 22:39 [employer] Web Developer For [facility] 04/24/24 Verified 24 Hours 22:39 Emergency Dysrhythmia [facility] 04/24/24 Verified Protocol 22:39 Rhythm Strips Once [facility] 04/24/24 Verified Every Shift 22:39 Oxygen By Nasal RT 04/24/24 Verified Cannula 22:39 Problem List: (1) Generalized weakness (2) UTI (urinary tract infection) (3) Morbid obesity (4) Severe protein-calorie malnutrition (5) Pulmonary vascular congestion (6) Pneumonia, unspecified organism (7) Diabetic nephropathy associated with type 2 diabetes mellitus Date of Service: Apr 24, 2024 Billing Provider: STEPHANIA KILGORE DNP Common Visit Codes: [id number] INP/OBS CARE (HIGH) STEPHANIA KILGORE DNP Apr 24, 2024 22:40
[2024-04-24] MEDS ORDERED: NITROGLYCERIN 0.4 MG SL TAB SL PRN (22:45)
[2024-04-24] MEDS ORDERED: MORPHINE SULFATE INJ 2 MG/ml SYRG IV PRN (22:45)
[2024-04-24] MEDS: CARVEDILOL 3.125 MG TAB PO SCH (23:06)
[2024-04-24] MEDS: InsuLIN REG 1unit/0.01ml Soln (100units/ml) SC SCH (23:24)
[2024-04-24] MEDS: ACCU-CHEK COMFORT CURVE STRIP VI SCH (23:24)
[2024-04-24] MEDS: ALBUMIN 25% 100 ML IV ONE (23:31)
[2024-04-25] VITALS (10 sets, daily range): BP systolic 106–144; BP diastolic 35–64; PULSE 78–96; RESP 16–20; TEMP 97.4–98.9; O2SAT 97–99
[2024-04-25] MEDS: LEVOTHYROXINE SODIUM 50 MCG TAB PO SCH (06:12)
[2024-04-25 06:24] LABS: Basophils # (auto) 0 10 ^3/uL (0-0.2); Basophils % (auto) 0.6 % (0.0-2.0); Eosinophils # (auto) 0.2 10 ^3/uL (0-0.8); Neutrophils # (auto) 5.1 10 ^3/uL (1.6-8.6); Nucleated Red Blood Cells % 0.1 %; White Blood Cell 7.2 10^3/uL (4.4-10.8)
[2024-04-25 06:26] LABS: Eosinophils % (auto) 2.8 % (0.0-7.0); Hematocrit 35.7 % (36.0-46.0); Hemoglobin 11.7 g/dL (12.2-16.2); Lymphocytes % (auto) 14.2 % (10.0-50.0); Mean Corpuscular Hemoglobin 26.7 pg (28.0-32.0); Mean Corpuscular Hgb Conc. 32.8 g/dL (32.0-36.0); Mean Corpuscular Volume 81.3 fL (80.0-100.0); Monocytes # (auto) 0.9 10 ^3/uL (0-1.3); Neutrophils % (auto) 70.4 % (37.0-80.0); Platelet Count (auto) 102 10^3/uL (140-450); Red Blood Cells 4.39 10^6/uL (4.0-5.20); Red Cell Distribution Width 17.9 % (11.8-14.3)
[2024-04-25 06:50] LABS: Alanine Aminotransferase 10 U/L (7-40); Alkaline Phosphatase 54 U/L (46-116); Anion Gap 12 (5-15); BUN/Creatinine Ratio 22.7 (10.0-20.0); Blood Urea Nitrogen 30 mg/dL (9-23); Calcium 9.3 mg/dL (8.7-10.4); Carbon Dioxide 18 mmol/L (20-31); Chloride 113 mmol/L (98-107); Glucose 117 mg/dL (74-106); Potassium 3.9 mmol/L (3.5-5.1); Sodium 143 mmol/L (136-145)
[2024-04-25 06:51] LABS: Aspartate Aminotransferase 20 U/L (13-40); Total Protein 5.7 g/dL (5.7-8.2)
[2024-04-25 07:13] LABS: Bilirubin, Total 1.3 mg/dL (0.2-1.0)
[2024-04-25] MEDS: ASPirin 81 mg TAB PO SCH (10:00)
[2024-04-25] MEDS: cefTRIAXone 1GM/50ML D5W 50 ML IV SCH (10:26)
[2024-04-25] MEDS: FUROSEMIDE 20 MG/2 ML VIAL IV SCH (10:27)
[2024-04-25] MEDS: MAGNESIUM SULFATE 1GM/100ML 100 ML IV ONE ×2 (12:30→21:43)
--- NOTE | 2024-04-25 15:57 | DVH ---
CHEST RADIOGRAPH Indication:Pneumonia Technique: Single frontal view of the chest was obtained Comparison: XY CHEST PORTABLE on DOS: 04/24/24, XY CHEST XRAY 1 VIEW on DOS: 11/27/23, XY CHEST PORTABLE on DOS: 11/07/23 FINDINGS: Lines and Tubes: None Lungs: No focal consolidation. Mild interstitial prominence. Pleura: No effusion. No pneumothorax. Cardiomediastinal contours: Unremarkable Bones: No acute osseous abnormality. IMPRESSION: Mild pulmonary vascular congestion. Underlying infectious process can not be excluded.
[2024-04-25] MEDS: ALBUMIN 25% 100 ML IV SCH (17:00)
--- NOTE | 2024-04-25 17:23 | DVH ---
EXAM: MRI BRAIN HEAD WO CONTRAST CLINICAL HISTORY: dural hemadural COMPARISON: CT head 04/24/2024 TECHNIQUE: Multiplanar, multisequence magnetic resonance imaging of the brain was performed without contrast. FINDINGS: Limited evaluation due to motion artifact . Focus of diffusion restriction of the left high convexity frontal lobe. There is prominent bifrontal and anterior middle cranial fossa CSF space measuring up to 1 cm in maxi mum thickness . Finding is most likely from moderate frontal lobe predominant brain atrophy. 1.3 by 1.1 cm calcified extra-axial dural-based lesion over the mid convexity right lateral fronto te mporal region which may represent a calcified meningioma. No acute hemorrhages, no midline shift, or herniation. No evidence of hydrocephalus. The basal cister ns are patent. The vascular flow voids are maintained. The pituitary gland, sella and parasellar regions are unremarkable. The cerebellar tonsils are in no rmal position. The cerebellum is unremarkable. Bilateral lens replacement. Otherwise, orbits and globes unremarkable. The paranasal sinuses and mas toids are clear. There are no worrisome calvarial lesions. 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 The prominent CSF space appears to be from moderate frontal lobe predominant brain atrophy. Right lateral frontotemporal 1.3 x 1.1 cm calcified meningioma.
--- NOTE | 2024-04-25 18:18 | DVH ---
EXAM: CT CHEST WITHOUT CONTRAST HISTORY: Pneumonia COMPARISON: CTA chest 11/08/2023 TECHNIQUE: Axial images of the chest were obtained and reformatted in coronal and sagittal planes. All CT scans at this medical facility are performed using dose modulation techniques as appropriate t o a performed exam including the following: Automated exposure control was utilized; adjustment of th e MA and/or KV according to patient size; and use of iterative reconstruction technique. CT Dose: CTDI volume is 27.37 mGy. Dose-length product is 898.53 mGy*cm FINDINGS: The thyroid gland is unremarkable. Borderline cardiomegaly. No evidence of aortic aneurysm. [id number] atherosclerotic calcificat ion of the aorta. Mitral annulus calcification. Mild dilatation of the pulmonary trunk up to 33 mm. No significant lymphadenopathy. Moderate right-sided pleural effusion with associated atelectasis. Minimal ground-glass opacities of the left lower lobe with left upper and lower lobe atelectasis. Cirrhotic appearing liver with moderate to large upper abdominal ascites. Cholelithiasis with moderat e distention of the gallbladder. Mild splenomegaly. 1.5 cm right adrenal nodule measuring up to -6 Ho unsfield units. Moderate sized hiatal hernia. Partially visualized IVC filter. Moderate right lateral lower chest wall soft tissue edema which is incompletely evaluated. Correlate for possible contusion. Diffuse demineralization. No destructive osseous lesions are noted. IMPRESSION: Moderate right-sided pleural effusion with associated atelectasis. Left upper and lower lobe atelecta sis. Dilatation of the pulmonary trunk up to 33 mm. Correlate for pulmonary arterial hypertension. Cirrhotic appearing liver with moderate to large upper abdominal ascites. Cholelithiasis with limite d evaluation for acute cholecystitis given ascites. 1.5 cm right adrenal nodule which may represent an adenoma. Moderate size hiatal hernia.
[2024-04-25] MEDS ORDERED: ALBUTEROL SULF 2.5 MG/0.5ML(0.5%) NEB SOLN NEB PRN (20:45)
[2024-04-25] MEDS ORDERED: IPRATROPIUM BROM 0.5 MG/2.5ML INH SOL NEB PRN (20:45)
--- NOTE | 2024-04-25 20:48 | DVHPNRES ---
Progress Note Date Seen: Apr 25, 2024 Resident Creating Document: BONNY SALMERON Has the PT tested + for MRSA If YES, has PT been informed?: No Medical Necessity Reason Pt with a Central, PICC or Fol: No Subjective Review of Systems The patient is an 83-year-old female with a past medical history of asthma, CHF, DM, hypertension, and thyroid disease who presented to [facility] ED for evaluation of generalized weakness. The patients grandson noticed she had increased weakness, fatigue, slurred speech over the past 2 days, and worsening shortness of breath, prompting this visit. In the ED, the patient denied chest pain, headache, dizziness, shortness of breath, nausea, vomiting, fever, and chills. Past Medical History: Asthma, CHF, DM, HTN, thyroid disease Past Surgical History: Noncontributory Family History: Noncontributory Social History: Denies smoking, alcohol, or illicit drug use Home Medications: Fluticasone, furosemide, levothyroxine, methotrexate, tiotropium Allergic History: Sulfa antibiotics On examination in the emergency department, the patient was confused and could not provide a proper history. Lab studies showed raised clonidine at 113, creatinine at 1.32, total bilirubin at 1.3, albumin at 3.0, and urine analysis indicated a UTI. A head CT scan showed bilateral extra-axial fluid collections in the frontal lobes measuring slightly higher than CSF attenuation, which may represent late subacute or chronic subdural hematomas with no mass effect or midline shift. An MRI of the brain showed a focus of acute infarct in the left high convexity frontal lobe, moderate frontal lobe predominant brain atrophy, and a right lateral frontotemporal 1.3 x 1.1 cm calcified meningioma. The patient was seen and examined at the bedside. She was confused and could not provide a proper history. Patient reports: No new complaints Changes from previous H/P or p: No Changes Objective vital signs Vital Sign Date Time Temp Pulse Resp B/P (MAP) Pulse Ox O2 Delivery O2 Flow Rate FiO2 04/25/24 17:23 98.2 78 20 144/51 (82) 98 98.2 04/25/24 08:00 Room Air* 0 21 Total Intake and Output 04/24/24 04/24/24 04/25/24 15:00 23:00 07:00 Intake Total 1000 ml 50 ml 100 ml Output Total 450 ml Balance 1000 ml 50 ml -350 ml medications Current Medications Medications Dose Ordered Sig/Edgar Route Start Time Stop Time Status Last Admin Dose Admin Levothyroxine Sodium 125 mcg QAM@0600 PO 04/25/24 06:00 04/25/24 06:12 125 MCG Carvedilol 3.125 mg Q12HR PO 04/24/24 22:00 Furosemide 20 mg DAILY IV 04/25/24 10:00 04/25/24 10:27 20 MG Ceftriaxone Sodium 50 ml @ 100 mls/hr DAILY@09 IV 04/25/24 09:00 04/25/24 10:26 100 MLS/HR Doxycycline Hyclate 250 ml @ 125 mls/hr Q12H IV 04/24/24 22:00 04/25/24 10:00 125 MLS/HR Diagnostic Test (Pha) 1 strip ACHS 04/24/24 22:00 04/25/24 17:00 1 STRIP Insulin Human Regular ACHS SC 04/24/24 22:00 Dextrose 50 ml UD PRN IV 04/24/24 22:00 Sodium Chloride 10 ml Q8HR IV 04/24/24 22:00 04/25/24 14:00 10 ML Acetaminophen/ Hydrocodone Bitart 1 tab Q4HP PRN PO 04/24/24 22:00 Ondansetron HCl 4 mg Q4HP PRN IV 04/24/24 22:00 Docusate Sodium 100 mg BIDPRN PRN PO 04/24/24 22:00 Acetaminophen 500 mg Q6HP PRN PO 04/24/24 22:00 Aspirin 81 mg DAILY PO 04/25/24 10:00 Nitroglycerin 0.4 mg Q5MINP PRN SL 04/24/24 22:45 Morphine Sulfate 2 mg Q30M PRN IV 04/24/24 22:45 Albumin Human 100 ml @ 100 mls/hr Q8H IV 04/25/24 13:30 04/26/24 06:29 04/25/24 17:00 100 MLS/HR Examination General Appearance: female lying on the bed, confused, with GCS 13/15 HEENT: Atraumatic, PERRLA, EOMI, Mucous membrane moist/pink Respiratory: Clear to auscultation, Normal air movement Cardiovascular: Regular rate, Normal S1, Normal S2, No murmurs, no chest wall tenderness Abdominal: Normal bowel sounds, Soft, No tenderness, No hepatospenomegaly, No masses Extremities: Bilateral grade 2 pedal edema Skin: There are bilateral bruises with scars on the upper limb Examination: GENERAL:Normal, HEENT:Normal, NECK:Normal, LUNGS:Normal, CVS:Normal, ABDOMEN:Normal, MSK:Normal, SKIN:Normal, NEURO:Normal, :Normal laboratory and microbiology Laboratory Tests 04/25/24 05:28 Test 04/25/24 05:28 Range/Units Serum Glucose 117 H 74-106 mg/dL Labs and/or images reviewed: Labs reviewed by me, Image(s) reviewed by me Problem List/Assessment/Plan Problem List/Assessment/Plan Acute metabolic encephalopathy likely due to UTI/pneumonia UTI, unspecified location Urinalysis, shows UTI picture Urine culture MRSA screening Ceftriaxone and doxycycline Pneumonia likely due to Gram-positive Gram-negative Chest x-ray shows, multifocal airspace disease, [id number]-right, findings may represent multifocal infection Sputum culture CVA MRI shows, focus of acute infarct of the left high convexity frontal lobe Neurology consultation BELA and CKD grade 2 Nephrology consultation Urine creatinine, sodium, protein creatinine ratio Hiatal Hernia, moderate size CT finding Right-sided pleural effusion CT scan shows, moderate right-sided pleural effusion with associated atelectasis Chest ultrasound Left lobe atelectasis CT scan shows, left upper and lower lobe atelectasis Right bundle branch block EKG shows right bundle-branch block pattern Continue telemetry Adrenal nodule CT scan showed 1.5 cm right adrenal nodule which may represent an adenoma Follow up on outpatient basis Uncontrolled hypothyroidism TSH is raised at 24.78 Check total T4, free T4, total T3, free T3 Possible pulmonary artery hypertension, dilated Pulmonary artery, [address] scan showed dilatation of the pulmonary trunk up to 33 mm, correlate for pulmonary arterial hypertension Echocardiogram Moderate protein calorie malnutrition Serum albumin is 3.0 Albumin 25 mg t.i.d. Hypomagnesemia Supplemented Asthma, stable Breathing treatment p.r.n. Meningioma Brain MRI shows, right lateral frontotemporal 1.3 x 1.1 cm calcified meningioma with prominent CSF space appears to be from moderate frontal lobe predominant brain atrophy Neurology consultation Morbidly obese Hyperchloremia Monitoring DVT prophylaxis Due to ischemic CVA suspicion, anticoagulation is not indicated SCD Stress ulcer prevention Protonix Code status Full Code Case discussed with Dr. Cervantes Plan discussed with: Patient (RN) My Orders My Orders Orders - BONNY SALMERON RESDIENT Procedure Category Date Status Time Free T3 LAB 04/25/24 In Process 12:30 T3 Total LAB 04/25/24 In Process 12:30 Free T4 (Free LAB 04/25/24 In Process Thyroxine) 12:30 Thyroxine (T4) LAB 04/25/24 In Process 12:30 * Virtualization Engineer CONS 04/25/24 Transmitted Consult Chest Xray 1 View XY 04/25/24 Resulted 14:[address] 04/25/24 Resulted 14:23 Echo 2d Mode Cardiac US 04/25/24 Logged DOP 14:23 Electrocardigram EKG 04/25/24 Logged 14:25 Date of Service: Apr 25, 2024 Billing Provider: ABIODUN CERVANTES DO Common Visit Codes: [id number] INP/OBS CARE(HIGH) BONNY SALMERON RESDIENT Apr 25, 2024 20:48 ABIODUN CERVANTES DO May 03, 2024 07:21
[2024-04-25] MEDS: PANTOPRAZOLE 40 MG/10 ML VIAL INJ IV ONE (21:41)
[2024-04-25] MEDS: ATORVASTATIN 20 MG TAB PO SCH (21:44)
[2024-04-26] VITALS (8 sets, daily range): BP systolic 100–113; BP diastolic 48–56; PULSE 64–92; RESP 17–19; TEMP 97.5–98.1; O2SAT 96–99
--- NOTE | 2024-04-26 08:57 | DVH ---
ULTRASOUND ABDOMEN COMPLETE INDICATION: Pain. TECHNIQUE: Multiple real-time sonographic images of the abdomen were obtained. COMPARISON: None FINDINGS: [Findings] The liver demonstrates lobular contour. The visualized liver parenchyma appears coarse and heterog eneous. The findings are compatible with hepatic cirrhosis. The liver measures 15.4 cm cm. No discre te hepatic lesion or intrahepatic biliary ductal dilatation is identified. There is ascites. There is sludge seen within the gallbladder. .There is no significant gallbladder wall thickening. Th e common biliary duct is not dilated. The right kidney measures 11.1 cm length. The left kidney measures 11.5 cm. No sonographic evide nce of nephrolithiasis or hydronephrosis. There is mild splenomegaly with the spleen measuring 13.8 cm in length. Pancreas is obscured by bowel gas. The abdominal aorta and IVC are also obscured by bowel gas. IMPRESSION: 1. Hepatic cirrhosis with ascites. 2. There is no sonographic evidence of a suspicious appearing hepatic lesion. 3. Mild splenomegaly. 4. Sludge seen within the gallbladder. HS:Y
[2024-04-26] MEDS: PANTOPRAZOLE 40 MG/10 ML VIAL INJ IV SCH (09:36)
[2024-04-26 11:04] LABS: Free T3 1.2 pg/mL (2.3-4.2); Free T4 (Free Thyroxine) 1.27 ng/dL (0.89-1.76)
[2024-04-26 11:05] LABS: T3 Total 0.57 ng/mL (0.60-1.81)
--- NOTE | 2024-04-26 11:49 | DVHCONRES ---
Date Seen: Apr 26, 2024 Resident Creating Document: JHAJJ,SARPUNEET RESIDENT Referring Physician MD Trace Reason for Consultation BELA on CKD History of Present Illness Patient is a 83-year-old female with a past medical history of CHF, T2 DM, hypertension, hypothyroidism was brought to the ED with a chief complaint of some generalized weakness. Patient was reported to have increased weakness, fat igue, slurred speech with the past 2 days and worsening shortness of breath by her grandson which prompted the visit to the hospital. Patient denied chest pain, headache, dizziness, shortness of breath, nausea, vomiting, fever, and chills. Chest x-ray shows multifocal airspace disease left greater than right and pulmonary edema. Chest CT shows Moderate right-sided pleural effusion with associated atelectasis. Left upper and lower lobe atelectasis.Dilatation of the pulmonary trunk up to 33 mm. Correlate for pulmonary arterial hypertension. Abdominal ultrasound shows hepatic cirrhosis with ascites, mild splenomegaly, right kidney 11.1 cm, left kidney 11.5 cm in length no evidence of nephrolithiasis or hydronephrosis Past Medical History CHF, type 2 diabetes mellitus, hypertension, hypothyroidism Past Surgical History None reported Family History: Patient reports no known family medical history. Social History Patient lives with family patient denied smoking, alcohol, drug use Allergies: Coded Allergies: Sulfa Antibiotics (Verified Allergy, Unknown, 07/30/23) Home Meds Active Scripts Cephalexin Monohydrate (Cephalexin) 500 Mg Cap, 1 CAP PO TID, #21 CAP Prov:PRAVEENA MATA MD 11/10/23 Methylprednisolone (Medrol Dosepak) 4 Mg Raul, 4 MG PO UD, #21 TAB UAD Prov:PRAVEENA MATA MD 11/10/23 Reported Medications Fluticasone-Salmeterol (Fluticasone Propionate/SA 500-50 Mcg/Dose) 1 Aer Aer, 1 PUFF PO BID 11/08/23 Tiotropium [place] Monohydrate (Spiriva Respimat) 1.25 Mcg/Act Aer, 2 PUFF INH DAILY 11/08/23 Levothyroxine Sodium (Levothyroxine Sodium) 125 Mcg Tab, 1 TAB PO DAILY 11/08/23 Furosemide (Furosemide) 20 Mg Tab, 1 TAB PO DAILY 11/08/23 Folic Acid (Folic Acid) 1 Mg Tab, 1 TAB PO DAILY 11/08/23 Losartan Potassium (Losartan Potassium) 50 Mg Tab, 1 TAB PO BID 11/08/23 Methotrexate (Methotrexate Sodium) 2.5 Mg Tab, 4 TAB PO QWEEKLY 11/08/23 Current Medications Current Medications Medications (Trade) Dose Ordered Sig/Edgar Route PRN Reason Start Time Stop Time Status Last Admin Albumin Human 100 ml @ 100 mls/hr Q8H IV 04/25/24 13:30 04/26/24 06:29 DC 04/26/24 06:07 Atorvastatin Calcium (Lipitor) 40 mg HS PO 04/25/24 22:00 04/25/24 21:44 Pantoprazole Sodium (Protonix) 40 mg DAILY IV 04/26/24 10:00 04/26/24 09:36 Ipratropium [place] (Atrovent Medneb) 0.5 mg Q6HPRN PRN NEB SHORTNESS OF BREATH 04/25/24 20:45 Albuterol (Ventolin Medneb) 2.5 mg Q6HPRN PRN NEB SHORTNESS OF BREATH 04/25/24 20:45 Review of Systems Patient seen and examined at the bedside. Patient is alert and oriented to place and person, disoriented to time. Patient is somnolent but awakens to voice and responds to verbal commands with a GCS 14 E3 V5 M6. Patient's blood pressure 113/56 mmHg, SpO2 94% on 2 L oxygen per minute via nasal cannula. Patient feels weak , denies shortness of breath on oxygen, no chest pain, no palpitations, no headache, no abdominal pain. Vital Signs Vital Signs Date Time Temp Pulse Resp B/P (MAP) Pulse Ox O2 Delivery O2 Flow Rate FiO2 04/26/24 09:38 75 113/56 04/26/24 09:00 98.0 19 99 98.0 04/26/24 08:00 Nasal Cannula* 2 28 Physical Exam Physical Examination Gen - no pallor, no icterus, no cyanosis, no clubbing, no LAD, 2+ bilateral pitting edema in the lower extremities up to the mid arredondo Skin - Patients skin is warm and dry. HEENT - normocephalic, atraumatic, moist mucous membranes. Neck - full ROM, no LAD, no JVD Pulmonary - B/L decreased breath sounds, no wheezing, no stridor. cardiovascular - normal S1,S2 heard. Pansystolic murmur heard at the left lower sternal border and the apex. peripheral pulses normal radial 2+, pedal 2+. capillary refill normal <2 secs. GI - soft abdomen . no hepatospleenomegaly. Bowel sounds + Neurological - Patient is A/O X2 . Bilateral upper extremity strength 3/5, bilateral lower extremity strength 3/5, no facial droop, normal speech, no tremor Labs/Diagnostic Data Labs Test 04/26/24 11:13 04/26/24 11:05 04/25/24 05:28 04/25/24 05:20 Range/Units POC Glucose 125 H 70-106 mg/dl White Blood Count 7.2 4.4-10.8 10^3/uL Red Blood Count 4.39 4.0-5.20 10^6/uL Hemoglobin 11.7 L 12.2-16.2 g/dL Hematocrit 35.7 L 36.0-46.0 % Mean Corpuscular Volume 81.3 80.0-100.0 fL Mean Corpuscular Hemoglobin 26.7 L 28.0-32.0 pg Mean Corpuscular Hemoglobin Concent 32.8 32.0-36.0 g/dL Red Cell Distribution Width 17.9 H 11.8-14.3 % Platelet Count 102 L 140-450 10^3/uL Mean Platelet Volume 7.0 6.9-10.8 fL Neutrophils (%) (Auto) 70.4 37.0-80.0 % Lymphocytes (%) (Auto) 14.2 10.0-50.0 % Monocytes (%) (Auto) 12.0 0.0-12.0 % Eosinophils (%) (Auto) 2.8 0.0-7.0 % Basophils (%) (Auto) 0.6 0.0-2.0 % Neutrophils # (Auto) 5.1 1.6-8.6 10 ^3/uL Lymphocytes # (Auto) 1.0 0.4-5.4 10 ^3/uL Monocytes # (Auto) 0.9 0-1.3 10 ^3/uL Eosinophils # (Auto) 0.2 0-0.8 10 ^3/uL Basophils # (Auto) 0 0-0.2 10 ^3/uL Nucleated Red Blood Cells 0.1 % Free Thyroxine (T4) Calculated 1.27 0.89-1.76 ng/dL Free Triiodothyronine (T3) pg/mL 1.20 L 2.3-4.2 pg/mL Total Triiodothyronine (TT3) 0.57 L 0.60-1.81 ng/mL Test 04/24/24 13:43 04/24/24 12:10 04/24/24 11:15 Range/Units Urine Color Yellow Yellow Urine Clarity Turbid H Clear Urine pH 6.5 5.0-9.0 Urine Specific [place] 1.017 1.001-1.035 Urine Protein Trace H Negative Urine Ketones 1+ H Negative Urine Blood Trace H Negative /uL Urine Nitrite Negative Negative Urine Bilirubin Negative Negative Urine Urobilinogen Normal Negative mg/dL Urine Leukocyte Esterase 3+ Negative /uL Urine RBC 1 0 - 4 /hpf Urine WBC 91 0 - 5 /hpf Urine Squamous Epithelial Cells Few <5 /hpf Urine Bacteria Few H None Seen /hpf Urine Hyaline Casts Few 0 - 2 /lpf Urine Mucus Few None Seen Urine Glucose Normal Normal mg/dL Magnesium Level 1.9 1.6-2.6 mg/dL Troponin I High Sensitivity 13 </=34 ng/L B-Type Natriuretic Peptide 58.22 0-100 pg/mL Thyroid Stimulating Hormone (TSH) 24.78 H 0.55-4.78 uIU/mL Microbiology Date/Time Source Procedure Growth Status 04/24/24 13:43 Voided Urine Urine Culture - Preliminary Resulted Plan/Recommendation Assessment and plan # BELA on CKD likely hemodynamically mediated - serum creatinine 1.38--> 1.21 - BUN 30--> 24 - urine sodium 75 - urine creatinine 30.14 - serum sodium 141 - FENa 2.1% - continue diuresis furosemide 40 mg b.i.d. IV - avoid nephrotoxic medication - strict I&O - monitor electrolytes # hypokalemia -Supplemented # hypomagnesemia - Supplemented #Acute metabolic encephalopathy likely due to UTI/pneumonia/CVA #UTI, unspecified location #Pneumonia l #CVA #Hepatic cirrhosis with ascites #Right-sided pleural effusion #Uncontrolled hypothyroidism #Possible pulmonary artery hypertension, dilated Pulmonary artery, 33 mm #Meningioma Goals of care discussed with the patient for over 20 minutes. Full code. Plan discussed with Dr. Stroud Addendum Patient seen and examined, plan discussed with resident. Agree with above, we will follow closely Plan discussed with: Patient THANH DE LUNA Apr 26, 2024 11:48 SHREYA STROUD MD Apr 26, 2024 19:37
[2024-04-26 11:50] LABS: Albumin 3.2 g/dL (3.2-4.8); Alkaline Phosphatase 41 U/L (46-116); Anion Gap 10 (5-15); Aspartate Aminotransferase 20 U/L (13-40); Bilirubin, Total 1.4 mg/dL (0.2-1.0); Blood Urea Nitrogen 23 mg/dL (9-23); Calcium 9.3 mg/dL (8.7-10.4); Carbon Dioxide 19 mmol/L (20-31); Chloride 112 mmol/L (98-107); Glucose 128 mg/dL (74-106); Phosphorus 3.4 mg/dL (2.4-5.1); Potassium 3.3 mmol/L (3.5-5.1); Sodium 141 mmol/L (136-145); Total Protein 5.6 g/dL (5.7-8.2)
[2024-04-26 11:52] LABS: Alanine Aminotransferase < 9 U/L (7-40)
--- NOTE | 2024-04-26 12:12 | DVHINCON2 ---
Date of service: Apr 26, 2024 History of Present Illness 83 yo F office pt of mine hx of severe pad, severe venous disease, non healing leg ulcer in past admitted for weakness. pt is oriented at this time. she has ckd as well. Past Medical History reviewed Family History: Patient reports no known family medical history. Allergies: Coded Allergies: Sulfa Antibiotics (Verified Allergy, Unknown, 07/30/23) Home Meds Active Scripts Cephalexin Monohydrate (Cephalexin) 500 Mg Cap, 1 CAP PO TID, #21 CAP Prov:PRAVEENA MATA MD 11/10/23 Methylprednisolone (Medrol Dosepak) 4 Mg Raul, 4 MG PO UD, #21 TAB UAD Prov:PRAVEENA MATA MD 11/10/23 Reported Medications Fluticasone-Salmeterol (Fluticasone Propionate/SA 500-50 Mcg/Dose) 1 Aer Aer, 1 PUFF PO BID 11/08/23 Tiotropium [place] Monohydrate (Spiriva Respimat) 1.25 Mcg/Act Aer, 2 PUFF INH DAILY 11/08/23 Levothyroxine Sodium (Levothyroxine Sodium) 125 Mcg Tab, 1 TAB PO DAILY 11/08/23 Furosemide (Furosemide) 20 Mg Tab, 1 TAB PO DAILY 11/08/23 Folic Acid (Folic Acid) 1 Mg Tab, 1 TAB PO DAILY 11/08/23 Losartan Potassium (Losartan Potassium) 50 Mg Tab, 1 TAB PO BID 11/08/23 Methotrexate (Methotrexate Sodium) 2.5 Mg Tab, 4 TAB PO QWEEKLY 11/08/23 Current Medications Current Medications Medications (Trade) Dose Ordered Sig/Edgar Route PRN Reason Start Time Stop Time Status Last Admin Albumin Human 100 ml @ 100 mls/hr Q8H IV 04/25/24 13:30 04/26/24 06:29 DC 04/26/24 06:07 Atorvastatin Calcium (Lipitor) 40 mg HS PO 04/25/24 22:00 04/25/24 21:44 Pantoprazole Sodium (Protonix) 40 mg DAILY IV 04/26/24 10:00 04/26/24 09:36 Ipratropium [place] (Atrovent Medneb) 0.5 mg Q6HPRN PRN NEB SHORTNESS OF BREATH 04/25/24 20:45 Albuterol (Ventolin Medneb) 2.5 mg Q6HPRN PRN NEB SHORTNESS OF BREATH 04/25/24 20:45 Review of Systems 10 pt ros otherwise negative Vital Signs Vital Signs Date Time Temp Pulse Resp B/P (MAP) Pulse Ox O2 Delivery O2 Flow Rate FiO2 04/26/24 10:03 96 Nasal Cannula 2.0 04/26/24 10:03 28 04/26/24 09:38 75 113/56 04/26/24 09:00 98.0 19 98.0 Physical Exam nad s1 s2 rrr ctab soft nt/nd +2 leg edema, L leg bandaged up Labs/Diagnostic Data Labs Test 04/26/24 11:13 04/26/24 11:05 04/25/24 05:28 04/25/24 05:20 Range/Units POC Glucose 125 H 70-106 mg/dl Sodium Level 141 136-145 mmol/L Potassium Level 3.3 L 3.5-5.1 mmol/L Chloride Level 112 H 98-107 mmol/L Carbon Dioxide Level 19 L 20-31 mmol/L Anion Gap 10 5-15 Blood Urea Nitrogen 23 9-23 mg/dL Creatinine 1.21 H 0.550-1.02 mg/dL Glomerular Filtration Rate Calc 45 >90 mL/min BUN/Creatinine Ratio 19.0 10.0-20.0 Serum Glucose 128 H 74-106 mg/dL Calcium Level 9.3 8.7-10.4 mg/dL Phosphorus Level 3.4 2.4-5.1 mg/dL Total Bilirubin 1.4 H 0.2-1.0 mg/dL Aspartate Amino Transferase (AST) 20 13-40 U/L Alanine Aminotransferase (ALT) < 9 7-40 U/L Alkaline Phosphatase 41 L 46-116 U/L Total Protein 5.6 L 5.7-8.2 g/dL Albumin 3.2 3.2-4.8 g/dL White Blood Count 7.2 4.4-10.8 10^3/uL Red Blood Count 4.39 4.0-5.20 10^6/uL Hemoglobin 11.7 L 12.2-16.2 g/dL Hematocrit 35.7 L 36.0-46.0 % Mean Corpuscular Volume 81.3 80.0-100.0 fL Mean Corpuscular Hemoglobin 26.7 L 28.0-32.0 pg Mean Corpuscular Hemoglobin Concent 32.8 32.0-36.0 g/dL Red Cell Distribution Width 17.9 H 11.8-14.3 % Platelet Count 102 L 140-450 10^3/uL Mean Platelet Volume 7.0 6.9-10.8 fL Neutrophils (%) (Auto) 70.4 37.0-80.0 % Lymphocytes (%) (Auto) 14.2 10.0-50.0 % Monocytes (%) (Auto) 12.0 0.0-12.0 % Eosinophils (%) (Auto) 2.8 0.0-7.0 % Basophils (%) (Auto) 0.6 0.0-2.0 % Neutrophils # (Auto) 5.1 1.6-8.6 10 ^3/uL Lymphocytes # (Auto) 1.0 0.4-5.4 10 ^3/uL Monocytes # (Auto) 0.9 0-1.3 10 ^3/uL Eosinophils # (Auto) 0.2 0-0.8 10 ^3/uL Basophils # (Auto) 0 0-0.2 10 ^3/uL Nucleated Red Blood Cells 0.1 % Free Thyroxine (T4) Calculated 1.27 0.89-1.76 ng/dL Free Triiodothyronine (T3) pg/mL 1.20 L 2.3-4.2 pg/mL Total Triiodothyronine (TT3) 0.57 L 0.60-1.81 ng/mL Test 04/24/24 13:43 04/24/24 12:10 04/24/24 11:15 Range/Units Urine Color Yellow Yellow Urine Clarity Turbid H Clear Urine pH 6.5 5.0-9.0 Urine Specific [place] 1.017 1.001-1.035 Urine Protein Trace H Negative Urine Ketones 1+ H Negative Urine Blood Trace H Negative /uL Urine Nitrite Negative Negative Urine Bilirubin Negative Negative Urine Urobilinogen Normal Negative mg/dL Urine Leukocyte Esterase 3+ Negative /uL Urine RBC 1 0 - 4 /hpf Urine WBC 91 0 - 5 /hpf Urine Squamous Epithelial Cells Few <5 /hpf Urine Bacteria Few H None Seen /hpf Urine Hyaline Casts Few 0 - 2 /lpf Urine Mucus Few None Seen Urine Glucose Normal Normal mg/dL Magnesium Level 1.9 1.6-2.6 mg/dL Troponin I High Sensitivity 13 </=34 ng/L B-Type Natriuretic Peptide 58.22 0-100 pg/mL Thyroid Stimulating Hormone (TSH) 24.78 H 0.55-4.78 uIU/mL Microbiology Date/Time Source Procedure Growth Status 04/24/24 13:43 Voided Urine Urine Culture - Preliminary Resulted Assessment 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
[2024-04-26] MEDS ORDERED: PIPERACILLIN-TAZO 4.5GM 100 ML IV ONE (12:15)
[2024-04-26] MEDS ORDERED: PIPERACILLIN-TAZOB 3.375GM 100 ML IV SCH ×2 (12:30→14:00)
[2024-04-26] MEDS ORDERED: FUROSEMIDE 20 MG/2 ML VIAL IV SCH (12:45)
[2024-04-26 13:05] LABS: Protein, Urine 32.1 mg/dL (1-14)
[2024-04-26 13:07] LABS: Amphetamine Screen, Urine Neg (NEGATIVE); Barbiturate Scree,Urine Neg (NEGATIVE); Benzodiazephine Screen, Urine Neg (NEGATIVE); Cannabinoid Screen, Urine Neg (NEGATIVE); Cocaine Screen, Urine Neg (NEGATIVE); Creatinine, Urine 30.17 mg/dL (30.0-125.0); Opiate Scree,Urine Neg (NEGATIVE); Phencyclidine Screen, Urine Neg (NEGATIVE); Urine Protein/Creatinine Ratio 1.06
[2024-04-26 13:08] LABS: Creatinine, Urine 30.14 mg/dL (30.0-125.0)
[2024-04-26] MEDS ORDERED: VANCOMYCIN PER PHARMACY 0 MG IV SCH (13:30)
[2024-04-26] MEDS: POTASSIUM EFFERVESENT TAB 25 MEQ PO ONE (14:28)
[2024-04-26 14:55] LABS: COVID19 ANTIGEN SOFIA FIA NEGATIVE (NEGATIVE)
[2024-04-26] MEDS: MAGNESIUM SULFATE 1GM/100ML 100 ML IV ONE (15:30)
--- NOTE | 2024-04-26 15:36 | DVHPNRES ---
Progress Note Date Seen: Apr 26, 2024 Resident Creating Document: BONNY SALMERON JOSS Has the PT tested + for MRSA If YES, has PT been informed?: No Medical Necessity Reason Pt with a Central, PICC or Fol: No Subjective Review of Systems Patient seen and examined at the bedside. Patient is confused and could not provide a detailed history. Objective vital signs Vital Sign Date Time Temp Pulse Resp B/P (MAP) Pulse Ox O2 Delivery O2 Flow Rate FiO2 04/26/24 13:00 98.1 74 17 112/48 (69) 97 98.1 04/26/24 10:03 Nasal Cannula 2.0 04/26/24 10:03 28 Total Intake and Output 04/25/24 04/25/24 04/26/24 15:00 23:00 07:00 Intake Total 400 ml 200 ml 450 ml Output Total 300 ml 300 ml Balance 400 ml -100 ml 150 ml medications Current Medications Medications Dose Ordered Sig/Edgar Route Start Time Stop Time Status Last Admin Dose Admin Levothyroxine Sodium 125 mcg QAM@0600 PO 04/25/24 06:00 04/26/24 06:08 125 MCG Carvedilol 3.125 mg Q12HR PO 04/24/24 22:00 Diagnostic Test (Pha) 1 strip ACHS 04/24/24 22:00 04/26/24 11:28 1 STRIP Insulin Human Regular ACHS SC 04/24/24 22:00 04/25/24 22:41 2 UNITS Dextrose 50 ml UD PRN IV 04/24/24 22:00 Sodium Chloride 10 ml Q8HR IV 04/24/24 22:00 04/26/24 14:28 10 ML Ondansetron HCl 4 mg Q4HP PRN IV 04/24/24 22:00 Docusate Sodium 100 mg BIDPRN PRN PO 04/24/24 22:00 Acetaminophen 500 mg Q6HP PRN PO 04/24/24 22:00 Aspirin 81 mg DAILY PO 04/25/24 10:00 04/26/24 09:38 81 MG Nitroglycerin 0.4 mg Q5MINP PRN SL 04/24/24 22:45 Atorvastatin Calcium 40 mg HS PO 04/25/24 22:00 04/25/24 21:44 40 MG Pantoprazole Sodium 40 mg DAILY IV 04/26/24 10:00 04/26/24 09:36 40 MG Ipratropium [place] 0.5 mg Q6HPRN PRN NEB 04/25/24 20:45 Albuterol 2.5 mg Q6HPRN PRN NEB 04/25/24 20:45 Piperacillin Sod/ Tazobactam Sod 100 ml @ 25 mls/hr Q6HR IV 04/26/24 18:00 UNV Furosemide 40 mg DAILY IV 04/26/24 12:45 Meropenem 50 ml @ 17 mls/hr Q8HR IV 04/26/24 14:00 Hold Vancomycin HCl 0 ml @ 0 mls/hr UD IV 04/26/24 13:30 Lactulose 30 ml BID PO 04/26/24 22:00 Spironolactone 25 mg DAILY PO 04/27/24 10:00 Examination General Appearance: female lying on the bed, confused, with GCS 13/15 HEENT: Atraumatic, PERRLA, EOMI, Mucous membrane moist/pink Respiratory: Clear to auscultation, Normal air movement Cardiovascular: Regular rate, Normal S1, Normal S2, No murmurs, no chest wall tenderness Abdominal: Normal bowel sounds, Soft, No tenderness, No hepatospenomegaly, No masses Extremities: Bilateral grade 2 pedal edema Skin: There are bilateral bruises with scars on the upper limb laboratory and microbiology Laboratory Tests 04/26/24 11:05 04/25/24 05:28 Test 04/26/24 11:05 Range/Units Serum Glucose 128 H 74-106 mg/dL Microbiology Date/Time Source Procedure Growth Status 04/25/24 06:15 Nose MRSA Screen - Final Methicillin Resistant S.aureus Complete 04/24/24 13:43 Voided Urine Urine Culture - Preliminary Resulted Labs and/or images reviewed: Labs reviewed by me, Image(s) reviewed by me Problem List/Assessment/Plan Problem List/Assessment/Plan Acute metabolic encephalopathy likely due to UTI/pneumonia/CVA UTI, unspecified location Urinalysis, shows UTI picture Blood culture Urine culture preliminary result shows >100,000 CFU/mL Gram Negative Rods MRSA screening shows methicillin-resistant Staphylococcus aureus, topical mupirocin Discontinue Ceftriaxone and doxycycline Start vancomycin and meropenem Pneumonia likely due to Gram-positive Gram-negative Chest x-ray shows, multifocal airspace disease, [id number], findings may represent multifocal infection Sputum culture Acute CVA MRI shows, focus of acute infarct of the left high convexity frontal lobe Neurology consultation Physical therapy consultation BELA and CKD 2 Nephrology consultation Improving Hepatic cirrhosis with ascites Abdominal ultrasound shows cirrhosis with ascites Check alcohol level Hepatitis planned Spironolactone 25 mg IR consulted for the peritoneal tap Check ammonia level Lactulose 30 mL b.i.d., with target bowel movement of 2-3 per day Possible spontaneous bacterial peritonitis Consult IR for paracentesis Meropenem Hiatal Hernia, moderate size CT finding Right-sided pleural effusion CT scan shows, moderate right-sided pleural effusion with associated atelectasis; consulted IR for thoracentesis Chest ultrasound Left lobe atelectasis CT scan shows, left upper and lower lobe atelectasis Right bundle branch block EKG shows right bundle-branch block pattern Continue telemetry Adrenal nodule CT scan showed 1.5 cm right adrenal nodule which may represent an adenoma Follow up on outpatient basis Uncontrolled hypothyroidism TSH is raised at 24.78 Check total T4, free T4, total T3, free T3 Possible pulmonary artery hypertension, dilated Pulmonary artery, [address] scan showed dilatation of the pulmonary trunk up to 33 mm, correlate for pulmonary arterial hypertension Echocardiogram Moderate protein calorie malnutrition Serum albumin is 3.0 Albumin 25 mg t.i.d. Hypomagnesemia Supplemented Asthma, stable Breathing treatment p.r.n. Meningioma Brain MRI shows, right lateral frontotemporal 1.3 x 1.1 cm calcified meningioma with prominent CSF space appears to be from moderate frontal lobe predominant brain atrophy Neurology consultation Morbidly obese Hypokalemia Supplemented Hypomagnesemia Supplemented Hyperchloremia Monitoring Hematuria Monitoring DVT prophylaxis SCDs Stress ulcer prevention Protonix 66 minutes of critical care time Goals of care discussed for 20 minutes; Full Code Case discussed with Dr. Riojas Plan discussed with: Patient, Other (RN) My Orders My Orders Orders - BONNY SALEMRON RESDIENT Procedure Category Date Status Time * Neurology Consult CONS 04/25/24 Transmitted 20:38 *[facility] CONS 04/25/24 Transmitted -[place] 20:38 Respiratory Culture TYE 04/25/24 Logged W/ Gs 20:40 Atorvastatin (Lipitor) PHA 04/25/24 In Process 22:00 Pantoprazole PHA 04/26/24 In Process (Protonix) 10:00 Ipratropium Medneb PHA 04/25/24 In Process (Atrovent Medneb) 20:45 Albuterol Medneb PHA 04/25/24 In Process (Ventolin Medneb) 20:45 * Cardiology Consult CONS 04/26/24 Transmitted 12:38 Furosemide Injection PHA 04/26/24 In Process (Lasix Injection) 12:45 Meropenem 1gm Ivpb PHA 04/26/24 In Process (Merrem 1gm/ Ns) 14:00 Dietary Evaluation Review Comments: 1) Continue to monitor/assist pt PO intake to meet at least 75% of meals 2) Consider [place]AL[place] 1 pkt BID for skin integrity and wounds 3) If pt appetite remains poor consider Ensure Enlive TID with meals 4) Continue current plan of care Expected Outcomes/Goals: 1) Pt appetite to improve 2) F/U in 3-5 days Critical Care Time (mins): 66 Addendum Addendum Addendum I was physically present for the [place] portions of the service provided to patient by THE RESIDENT. I have reviewed the documentation, discussed the case with resident and agree with the resident's documentation except as noted. Also the patient's clinical case was discussed with the patient's nurse. This medical document was created using an electronic medical record system with computerized dictation system. Although this document has been carefully reviewed, there might still be some phonetic and typographical errors. These areas are purely typographical due to imperfections of the software programs, and do not reflect any compromise in the patient's medical care. Late signature. Date of Service: Apr 26, 2024 Billing Provider: GUSTABO RIOJAS MD Common Visit Codes: 42025-XDEUSORQ CARE 30-74 MIN (66 minutes) Secondary Visit Codes: 46904-[id number] CARE PLAN 30 MINUTES (20 minutes) BONNY SALMERON RESDIPHILIPP Apr 26, 2024 15:36 GUSTABO RIOJAS MD Apr 27, 2024 08:06
--- NOTE | 2024-04-26 16:48 | DVHSR ---
APPROVED REPORT EXAM: Two-dimensional and M-mode echocardiogram with Doppler and color Doppler. Blood Pressure: 103/54 mmHg INDICATION HF? RISK FACTORS Height: 60, Weight: 224 DIMENSIONS LVDd4.7 (3.8-5.7cm)LA (2D)5.3 (1.9-4.0cm)Aortic Root3.6 (2.0-3.7cm) LVDs2.9 (2.5-4.0cm)LA (MM) (1.9-4.0cm)Aortic Cusp Exc0.9 (1.5-2.0cm) EF (%) 67.0 (55-70%)Rt. Atrium3.7 (1.9-4.0cm)Asc. Aorta cm Mitral Valve MitralMitral Stenosis E wave0.70m/sMV Mean GR.4mmHg A wave1.25m/sMV Peak GR.11mmHg E/A ratio0.62D MVAcm2 DECEL [id number] 1/2 [id number] IVRTmsDop MVA2.72cm2 Aortic Valve Aortic ValveAortic Stenosis V11.27m/Abad Mean GR.11mmHg V22.35m/Abad Peak GR.22mmHg LVOT Diameter2.0 (1.8-2.4cm)Doppler AVA1.70cm2 Pulmonic Valve V21.29m/s Tricuspid Valve TR Velocity2.28m/s [id number] Other Information Technically limited study due to body habitus. Patient was laying flat on her back. Patient was non compliant during entire study. Conclusion Normal left ventricular size and dimension. Normal left ventricular systolic function estimated ejec tion fraction 55%. There is a grade 1 diastolic dysfunction. Normal right ventricular size and dimension. Normal right ventricular systolic function. Normal biatrial size and dimension. There is mild aortic valve sclerosis. There is a moderately severe mitral tricuspid location. There is mild mitral valve regurgitation. Normal tricuspid valve structure and function. The pulmonary valve is grossly normal. No pericardial effusion.
[2024-04-26] MEDS ORDERED: PIPERACILLIN-TAZO 4.5GM 100 ML IV SCH (18:00)
[2024-04-26] MEDS: VANCOMYCIN 1.5GM/300ML 300 ML IV ONE (19:25)
[2024-04-26] MEDS: LACTULOSE 20Gm/30ML SOLN PO SCH (22:21)
[2024-04-26] MEDS: FUROSEMIDE 20 MG/2 ML VIAL IV SCH (22:24)
--- NOTE | 2024-04-26 22:33 | DVHINCON2 ---
Date of service: Apr 26, [address] Woodward Reason for Consultation ? CVA History of Present Illness Ms. Watters is a 83 years old right-handed female with a history of hypertension, diabetes, hypothyroidism, congestive heart failure, non alcoholic liver cirrhosis, asthma, morbid obesity, the patient came to the [facility] on 04/24/2024 with a chief company of generalized weakness. At this time, she was awake, oriented to person, place, socially appropriate, but she is a poor historian. She tells me that she does not know what happened to her at home or not aware of her symptoms, but she remembers she was said to have bladder infection in the hospital. Apparently, the patient developed general weakness, slurred speech at home, and her pulse ox was 86% on room air per EMS reports. Her MRI showed a small acute stroke in the left MCA territory UDS, 04/26/2024: Negative Plasma alcohol, 04/26/2024: Normal Urinalysis, 04/24/2024: WBC: 91, urine leukocyte esterase: 3+ CBC, 04/24/2024: Unremarkable BUN/CR, 04/26/2024: 23/1.21 HCO3, 04/24/2024: 19, 04/25/2024: 18, 04/26/2024: 19 TBI/AST/ALT/AP, 04/26/2024: 1.4/20/9/41 Ammonia, 04/26/2024: 67 TSH, 04/24/24: 24.78 Echocardiogram, 04/26/2024: Normal left ventricular size and dimension. Normal left ventricular systolic function estimated ejection fraction 55%. There is a grade 1 diastolic dysfunction. Normal right ventricular size and dimension. Normal right ventricular systolic function. Normal biatrial size and dimension. There is mild aortic valve sclerosis. There is a moderately severe mitral tricuspid location. There is mild mitral valve regurgitation. Normal tricuspid valve structure and function. The pulmonary valve is grossly normal. No pericardial effusion CT head, 04/24/2024: 1. Bilateral extra-axial fluid collections in the frontal lobes measuring slightly higher than CSF attenuation. These may represent late subacute or chronic subdural hematomas. No mass effect or midline shift. MRI of the brain may be obtained for further evaluation. 2. No evidence of major territory acute infarct MRI head, 04/25/2024: Focus of acute infarct of the left high convexity frontal lobe. The prominent CSF space appears to be from moderate frontal lobe predominant brain atrophy. Right lateral frontotemporal 1.3 x 1.1 cm calcified meningioma Past Medical History Hypertension, diabetes, hypothyroidism, congestive heart failure, nonalcoholic liver cirrhosis, asthma, obesity Past Surgical History He denies major surgeries Family History: Patient reports no known family medical history. Family History Unknown Social History She was not a tobacco smoker, she denies a history of alcohol or recreational substance abuse Allergies: Coded Allergies: Sulfa Antibiotics (Verified Allergy, Unknown, 07/30/23) Home Meds Active Scripts Cephalexin Monohydrate (Cephalexin) 500 Mg Cap, 1 CAP PO TID, #21 CAP Prov:PRAVEENA MATA MD 11/10/23 Methylprednisolone (Medrol Dosepak) 4 Mg Raul, 4 MG PO UD, #21 TAB UAD Prov:PRAVEENA MATA MD 11/10/23 Reported Medications Fluticasone-Salmeterol (Fluticasone Propionate/SA 500-50 Mcg/Dose) 1 Aer Aer, 1 PUFF PO BID 11/08/23 Tiotropium [place] Monohydrate (Spiriva Respimat) 1.25 Mcg/Act Aer, 2 PUFF INH DAILY 11/08/23 Levothyroxine Sodium (Levothyroxine Sodium) 125 Mcg Tab, 1 TAB PO DAILY 11/08/23 Furosemide (Furosemide) 20 Mg Tab, 1 TAB PO DAILY 11/08/23 Folic Acid (Folic Acid) 1 Mg Tab, 1 TAB PO DAILY 11/08/23 Losartan Potassium (Losartan Potassium) 50 Mg Tab, 1 TAB PO BID 11/08/23 Methotrexate (Methotrexate Sodium) 2.5 Mg Tab, 4 TAB PO QWEEKLY 11/08/23 Current Medications Current Medications Medications (Trade) Dose Ordered Sig/Edgar Route PRN Reason Start Time Stop Time Status Last Admin Pantoprazole Sodium (Protonix) 40 mg DAILY IV 04/26/24 10:00 04/26/24 09:36 Piperacillin Sod/ Tazobactam Sod 100 ml @ 25 mls/hr Q6HR IV 04/26/24 18:00 UNV Piperacillin Sod/ Tazobactam Sod 100 ml @ 25 mls/hr Q8HR IV 04/26/24 14:00 04/26/24 12:29 DC Piperacillin Sod/ Tazobactam Sod 100 ml @ 25 mls/hr Q8H IV 04/26/24 12:30 04/26/24 13:29 DC Furosemide (Lasix Injection) 40 mg DAILY IV 04/26/24 12:45 04/26/24 16:45 DC Meropenem 50 ml @ 17 mls/hr Q8HR IV 04/26/24 14:00 Vancomycin HCl 0 ml @ 0 mls/hr UD IV 04/26/24 13:30 Lactulose 30 ml BID PO 04/26/24 22:00 Spironolactone (Aldactone) 25 mg DAILY PO 04/27/24 10:00 Mupirocin (Bactroban 2% Ointment) 1 applic BID EACHNOSTRI 04/26/24 22:00 05/01/24 21:59 Furosemide (Lasix Injection) 40 mg BID IV 04/26/24 22:00 Review of Systems As above, the other systems are negative Vital Signs Vital Signs Date Time Temp Pulse Resp B/P (MAP) Pulse Ox O2 Delivery O2 Flow Rate FiO2 04/26/24 21:00 97.5 89 17 100/55 (70) 99 97.5 04/26/24 10:03 Nasal Cannula 2.0 04/26/24 10:03 28 Physical Exam GENERAL EXAM: General: the patient is well developed and nourished. No acute distress. HEENT: Normocephalic, neck is supple, no carotid bruits. No mass. RESPIRATORY: Normal respiratory effort with symmetrical lung expansion. Lungs clear to auscultation. CARDIOVASCULAR: Regular rate and rhythm with no murmurs. S1, S2. ABDOMEN: Soft, nontender, normal bowel sound MUSCULOSKELETAL EXAM: Multiple bruises in the extremities NEUROLOGICAL: MENTAL STATUS: Subjective SPEECH, LANGUAGE, HIGHER CORTICAL FUNCTION: no aphasia or dysathria. CRANIAL NERVES: #2: Intact visual white to confrontation. The optic discs were sharp. #3,4,6: Pupils are equal, round and reactive. EOMs full and conjugate. No nystagmus. #5: Facial sensation intact in all three divisions bilaterally. Mandibular strength intact. #7: Facial muscles symmetrical and strength intact. #8: Hearing grossly normal to voice. #9,10: Uvula and soft palate rise in the midline. Swallow and voice are normal. #11: Trapezius and sternomastoid strength intact bilaterally. #12: Tongue midline. No fasciculations or atrophy. SENSATION: Sensation to touch and pinprick is normal. MOTOR: Normal tone in the upper and lower extremity. Normal muscle bulk. No fasciculations. No abnormal movements or posturing. Muscle strength of the major groups in the upper extremities is 4-5/5. Muscle strength of the major groups in the lower extremities is 3/5. REFLEXES: Deep tendon reflexes are symmetrical. No pathological reflexes. CEREBELLAR/COORDINATION: Finger to nose is unremarkable bilaterally. GAIT/STATION: deferred. Labs/Diagnostic Data Labs Test 04/26/24 19:24 04/26/24 18:33 04/26/24 14:04 04/26/24 12:34 Range/Units POC Glucose 136 H 70-106 mg/dl Ammonia 67 H 11-32 umol/L Parathyroid Hormone (Intact) 52.2 18.4-80.1 pg/mL Plasma/Serum Blood Alcohol < 3.0 <10 mg/dL SARS-CoV-2 Antigen (Rapid) Negative NEGATIVE Urine Creatinine 30.17 30.0-125.0 mg/dL Urine Protein/Creatinine Ratio 1.06 Urine Sodium 75 40-220 mmol/L Urine Total Protein 32.1 H 1-14 mg/dL Urine Opiates Screen Neg NEGATIVE Urine Fentanyl Screen Neg NEGATIVE Urine Barbiturates Screen Neg NEGATIVE Urine Phencyclidine Screen Neg NEGATIVE Urine Amphetamines Screen Neg NEGATIVE Urine Benzodiazepines Screen Neg NEGATIVE Urine Cocaine Screen Neg NEGATIVE Urine Cannabinoids Screen Neg NEGATIVE Test 04/26/24 11:05 04/25/24 05:28 04/25/24 05:20 04/24/24 13:43 Range/Units Sodium Level 141 136-145 mmol/L Potassium Level 3.3 L 3.5-5.1 mmol/L Chloride Level 112 H 98-107 mmol/L Carbon Dioxide Level 19 L 20-31 mmol/L Anion Gap 10 5-15 Blood Urea Nitrogen 23 9-23 mg/dL Creatinine 1.21 H 0.550-1.02 mg/dL Glomerular Filtration Rate Calc 45 >90 mL/min BUN/Creatinine Ratio 19.0 10.0-20.0 Serum Glucose 128 H 74-106 mg/dL Calcium Level 9.3 8.7-10.4 mg/dL Phosphorus Level 3.4 2.4-5.1 mg/dL Total Bilirubin 1.4 H 0.2-1.0 mg/dL Aspartate Amino Transferase (AST) 20 13-40 U/L Alanine Aminotransferase (ALT) < 9 7-40 U/L Alkaline Phosphatase 41 L 46-116 U/L Total Protein 5.6 L 5.7-8.2 g/dL Albumin 3.2 3.2-4.8 g/dL White Blood Count 7.2 4.4-10.8 10^3/uL Red Blood Count 4.39 4.0-5.20 10^6/uL Hemoglobin 11.7 L 12.2-16.2 g/dL Hematocrit 35.7 L 36.0-46.0 % Mean Corpuscular Volume 81.3 80.0-100.0 fL Mean Corpuscular Hemoglobin 26.7 L 28.0-32.0 pg Mean Corpuscular Hemoglobin Concent 32.8 32.0-36.0 g/dL Red Cell Distribution Width 17.9 H 11.8-14.3 % Platelet Count 102 L 140-450 10^3/uL Mean Platelet Volume 7.0 6.9-10.8 fL Neutrophils (%) (Auto) 70.4 37.0-80.0 % Lymphocytes (%) (Auto) 14.2 10.0-50.0 % Monocytes (%) (Auto) 12.0 0.0-12.0 % Eosinophils (%) (Auto) 2.8 0.0-7.0 % Basophils (%) (Auto) 0.6 0.0-2.0 % Neutrophils # (Auto) 5.1 1.6-8.6 10 ^3/uL Lymphocytes # (Auto) 1.0 0.4-5.4 10 ^3/uL Monocytes # (Auto) 0.9 0-1.3 10 ^3/uL Eosinophils # (Auto) 0.2 0-0.8 10 ^3/uL Basophils # (Auto) 0 0-0.2 10 ^3/uL Nucleated Red Blood Cells 0.1 % Free Thyroxine (T4) Calculated 1.27 0.89-1.76 ng/dL Free Triiodothyronine (T3) pg/mL 1.20 L 2.3-4.2 pg/mL Total Triiodothyronine (TT3) 0.57 L 0.60-1.81 ng/mL Urine Color Yellow Yellow Urine Clarity Turbid H Clear Urine pH 6.5 5.0-9.0 Urine Specific [employer] 1.017 1.001-1.035 Urine Protein Trace H Negative Urine Ketones 1+ H Negative Urine Blood Trace H Negative /uL Urine Nitrite Negative Negative Urine Bilirubin Negative Negative Urine Urobilinogen Normal Negative mg/dL Urine Leukocyte Esterase 3+ Negative /uL Urine RBC 1 0 - 4 /hpf Urine WBC 91 0 - 5 /hpf Urine Squamous Epithelial Cells Few <5 /hpf Urine Bacteria Few H None Seen /hpf Urine Hyaline Casts Few 0 - 2 /lpf Urine Mucus Few None Seen Urine Glucose Normal Normal mg/dL Test 04/24/24 12:10 04/24/24 11:15 Range/Units Magnesium Level 1.9 1.6-2.6 mg/dL Troponin I High Sensitivity 13 </=34 ng/L B-Type Natriuretic Peptide 58.22 0-100 pg/mL Thyroid Stimulating Hormone (TSH) 24.78 H 0.55-4.78 uIU/mL Microbiology Date/Time Source Procedure Growth Status 04/25/24 06:15 Nose MRSA Screen - Final Methicillin Resistant S.aureus Complete 04/24/24 13:43 Voided Urine Urine Culture - Preliminary Resulted Assessment Altered mental status, general weakness Hepatic encephalopathy Metabolic encephalopathy Metabolic acidosis Liver failure Urinary tract infection Sepsis Acute stroke, likely the stroke asymptomatic Multiple ecchymosis Plan/Recommendation Monitoring Supportive treatment Telemetry Coagulation panel Lipitor profile Carotid Doppler IV antibiotics Aspirin 81 mg daily Lipitor 20 mg daily for now Lactulose Room bright during daytime Physical therapy Up to chair Progress: Poor This medical document was created using an electronic medical record system with [employer] dictation system. Although this document has been carefully reviewed, there may still be some phonetic and typographical errors. These areas are purely typographical due to imperfections of the software programs, and do not reflect any compromise in the patient's medical care. Plan discussed with: Other DAYLIN MCGRATH MD Apr 26, 2024 22:33
[2024-04-26] MEDS: ATORVASTATIN 20 MG TAB PO SCH (23:00)
[2024-04-26] MEDS: MUPIROCIN 2% OINT 15gm or 22gm FOR MRSA NARES EACHNOSTRI SCH (23:19)
[2024-04-26] MEDS: MEROPENEM 1GM IVPB 50 ML IV SCH (23:19)
[2024-04-27] VITALS (9 sets, daily range): BP systolic 76–110; BP diastolic 33–66; PULSE 73–93; RESP 17–20; TEMP 97.8–98.4; O2SAT 96–100
[2024-04-27 00:16] LABS: INR 1.49 (0.9-1.15); Partial Thromboplastin Time 30.2 SEC (24.5-34.5); Prothrombin Time 15.3 sec (9.3-11.8)
[2024-04-27 00:23] LABS: Folate (Folic Acid) 8.95 ng/mL (>5.38)
--- NOTE | 2024-04-27 07:43 | DVH ---
CLINICAL INFORMATION: 83 years old, Female; congestion. TECHNIQUE: Single AP portable chest radiograph was obtained. COMPARISON: XY CHEST XRAY 1 VIEW on DOS: 04/25/24, XY CHEST PORTABLE on DOS: 04/24/24, XY CHEST XRAY 1 VIEW on DOS: 11/27/23 FINDINGS: Bilateral interstitial opacities appear slightly increased. Atelectasis and/or consolidations in the lower lobes, also slightly increased. Similar-appearing prominence of the pulmonary vasculature. No o ther significant interval change. IMPRESSION: Worsening bilateral interstitial opacities and atelectasis and/or consolidations in the lung bases. F indings may be due to interstitial pulmonary edema or multifocal infectious process in the appropriat e clinical setting. Correlate with clinical findings.
--- NOTE | 2024-04-27 08:45 | DVHPN2 ---
Progress Note - Dictate Date Seen: Apr 27, 2024 Has the PT tested + for MRSA If YES, has PT been informed?: No Medical Necessity Reason Pt with a Central, PICC or Fol: No Subjective Ms. Watters is a 83 years old right-handed female with a history of hypertension, diabetes, hypothyroidism, congestive heart failure, non alcoholic liver cirrhosis, asthma, morbid obesity, the patient came to the [facility] on 04/24/2024 with a chief company of generalized weakness. I have seen and examined the patient, I have discussed with her nurse, she was awake, oriented to person, possibly to the place, confused UDS, 04/26/2024: Negative Plasma alcohol, 04/26/2024: Normal Urinalysis, 04/24/2024: WBC: 91, urine leukocyte esterase: 3+ CBC, 04/24/2024: Unremarkable PT/INR/PTT, 04/26/2028: 15.3/1.49/30.2 BUN/CR, 04/26/2024: 23/1.21 HCO3, 04/24/2024: 19, 04/25/2024: 18, 04/26/2024: 19 TBI/AST/ALT/AP, 04/26/2024: 1.4/20/9/41 Ammonia, 04/26/2024: 67 Vitamin B12, 04/26/2024: 2375 Folic acid, 04/26/2024: 8.95 TSH, 04/24/24: 24.78 Echocardiogram, 04/26/2024: Normal left ventricular size and dimension. Normal left ventricular systolic function estimated ejection fraction 55%. There is a grade 1 diastolic dysfunction. Normal right ventricular size and dimension. Normal right ventricular systolic function. Normal biatrial size and dimension. There is mild aortic valve sclerosis. There is a moderately severe mitral tricuspid location. There is mild mitral valve regurgitation. Normal tricuspid valve structure and function. The pulmonary valve is grossly normal. No pericardial effusion CT head, 04/24/2024: 1. Bilateral extra-axial fluid collections in the frontal lobes measuring slightly higher than CSF attenuation. These may represent late subacute or chronic subdural hematomas. No mass effect or midline shift. MRI of the brain may be obtained for further evaluation. 2. No evidence of major territory acute infarct MRI head, 04/25/2024: Focus of acute infarct of the left high convexity frontal lobe. The prominent CSF space appears to be from moderate frontal lobe predominant brain atrophy. Right lateral frontotemporal 1.3 x 1.1 cm calcified meningioma vital signs Vital Sign Date Time Temp Pulse Resp B/P (MAP) Pulse Ox O2 Delivery O2 Flow Rate FiO2 04/27/24 08:29 97.9 89 18 106/66 (79) 99 97.9 04/26/24 20:00 Nasal Cannula* 2 28 Total Intake and Output 04/26/24 04/26/24 04/27/24 14:59 22:59 06:59 Intake Total 400 ml 300 ml 500 ml Output Total 1050 ml Balance 400 ml 300 ml -550 ml medications Current Medications Medications Dose Ordered Sig/Edgar Route Start Time Stop Time Status Last Admin Dose Admin Levothyroxine Sodium 125 mcg QAM@0600 PO 04/25/24 06:00 04/27/24 06:16 125 MCG Carvedilol 3.125 mg Q12HR PO 04/24/24 22:00 Diagnostic Test (Pha) 1 strip ACHS 04/24/24 22:00 04/27/24 06:15 1 STRIP Insulin Human Regular ACHS SC 04/24/24 22:00 04/26/24 19:32 2 UNITS Dextrose 50 ml UD PRN IV 04/24/24 22:00 Sodium Chloride 10 ml Q8HR IV 04/24/24 22:00 04/27/24 05:16 10 ML Ondansetron HCl 4 mg Q4HP PRN IV 04/24/24 22:00 Docusate Sodium 100 mg BIDPRN PRN PO 04/24/24 22:00 Acetaminophen 500 mg Q6HP PRN PO 04/24/24 22:00 Aspirin 81 mg DAILY PO 04/25/24 10:00 04/26/24 09:38 81 MG Nitroglycerin 0.4 mg Q5MINP PRN SL 04/24/24 22:45 Pantoprazole Sodium 40 mg DAILY IV 04/26/24 10:00 04/26/24 09:36 40 MG Ipratropium [place] 0.5 mg Q6HPRN PRN NEB 04/25/24 20:45 Albuterol 2.5 mg Q6HPRN PRN NEB 04/25/24 20:45 Piperacillin Sod/ Tazobactam Sod 100 ml @ 25 mls/hr Q6HR IV 04/26/24 18:00 UNV Vancomycin HCl 0 ml @ 0 mls/hr UD IV 04/26/24 13:30 Lactulose 30 ml BID PO 04/26/24 22:00 04/26/24 22:21 30 ML Spironolactone 25 mg DAILY PO 04/27/24 10:00 Furosemide 40 mg BID IV 04/26/24 22:00 04/26/24 22:24 40 MG Meropenem 50 ml @ 17 mls/hr Q8H IV 04/27/24 08:00 Mupirocin 1 applic BID EACHNOSTRI 04/27/24 10:00 05/02/24 09:59 Atorvastatin Calcium 40 mg HS PO 04/27/24 07:00 objective General: the patient is well developed and nourished. No acute distress. MUSCULOSKELETAL EXAM: Multiple bruises in the extremities MENTAL STATUS: Subjective SPEECH, LANGUAGE, HIGHER CORTICAL FUNCTION: no aphasia or dysathria. CRANIAL NERVES: Pupils are equal, round and reactive. EOMs full and conjugate. No nystagmus. Facial sensation intact in all three divisions bilaterally. Mandibular strength intact. Facial muscles symmetrical and strength intact. SENSATION: Sensation to touch and pinprick is normal. MOTOR: Normal tone in the upper and lower extremity. Normal muscle bulk. No fasciculations. No abnormal movements or posturing. Muscle strength of the major groups in the upper extremities is 4-5/5. Muscle strength of the major groups in the lower extremities is 3/5. REFLEXES: Deep tendon reflexes are symmetrical. No pathological reflexes. CEREBELLAR/COORDINATION: Finger to nose is unremarkable bilaterally. GAIT/STATION: deferred. laboratory and microbiology Laboratory Tests 04/26/24 11:05 04/25/24 05:28 Test 04/26/24 11:05 Range/Units Serum Glucose 128 H 74-106 mg/dL Problem List Altered mental status, general weakness Hepatic encephalopathy Metabolic encephalopathy Metabolic acidosis Liver failure Urinary tract infection Sepsis Acute stroke, likely the stroke asymptomatic Multiple ecchymosis Assessment/Plan Monitoring Supportive treatment Telemetry Lipitor profile Carotid Doppler IV antibiotics Aspirin 81 mg daily Lipitor 20 mg daily for now Lactulose Room bright during daytime Physical therapy Up to chair This medical document was created using an electronic medical record system with [employer] dictation system. Although this document has been carefully reviewed, there may still be some phonetic and typographical errors. These areas are purely typographical due to imperfections of the software programs, and do not reflect any compromise in the patient's medical care. Prognosis poor Dietary Evaluation Review Comments: 1) Continue to monitor/assist pt PO intake to meet at least 75% of meals 2) Consider DAL[place] 1 pkt BID for skin integrity and wounds 3) If pt appetite remains poor consider Ensure Enlive TID with meals 4) Continue current plan of care Expected Outcomes/Goals: 1) Pt appetite to improve 2) F/U in 3-5 days Plan discussed with: Other DAYLIN MCGRATH MD Apr 27, 2024 08:45
[2024-04-27] MEDS: MEROPENEM 1GM IVPB 50 ML IV SCH (08:48)
[2024-04-27] MEDS: ATORVASTATIN 20 MG TAB PO SCH (08:50)
[2024-04-27] MEDS: SPIRONOLACTONE 25 MG TAB PO SCH (08:51)
[2024-04-27] MEDS: MUPIROCIN 2% OINT 15gm or 22gm FOR MRSA NARES EACHNOSTRI SCH (08:54)
--- NOTE | 2024-04-27 09:15 | DVH ---
US PARACENTESIS, HISTORY: ASCITES PROCEDURE: Informed consent was obtained. The patient was placed in supine position. A limited locali zation ultrasound of the abdomen was obtained, and the skin site over the largest pocket of fluid was marked and entry site was prepped with chlorhexidine which was allowed to dry and draped in the usua l sterile fashion. Time out was performed. Following administration of 1% lidocaine local anesthetic, a 5 [place] centesis needle catheter was percutaneously inserted into the peritoneal collection until fluid was aspirated. The catheter was advanced into the fluid collection and the needle removed. Abo ut 3100 cc of fluid was aspirated and specimen sent for appropriate cultures/cytology/cultures and cy tology. The catheter was then removed and a sterile dressing applied. No immediate complication was identified. FINDINGS: Limited ultrasound imaging demonstrates mild to moderate ascites. Aspirated fluid was clear and serous. IMPRESSION: US-guided paracentesis with 3.1L removed.
--- NOTE | 2024-04-27 10:41 | DVH ---
CAROTID ARTERIAL DOPPLER CLINICAL HISTORY: CVA TECHNIQUE: Doppler study of bilateral carotid/vertebral arteries were performed. Comparison: None FINDINGS: There are calcified atherosclerotic changes in the bilateral carotid bulbs , [id number]. There are elevated peak systolic velocities in the left proximal and mid internal carotid arteries. The bilateral common carotid carotid arteries appear patent without hemodynamically significant steno sis. The spectral wave forms and peak systolic velocities are within normal limits. Antegrade flow is present within the vertebral arteries with appropriate velocities and waveforms. Right ICA/CCA PSV ratio = 1.7. Left ICA/CCA PSV ratio = 2.8 . IMPRESSION: 1. Calcified atherosclerotic plaques in the bilateral carotid bulbs, [id number]. There a re elevated peak systolic velocities in the left proximal mid internal carotid arteries corresponding to approximately 50-69% stenosis. Further evaluation with CTA neck is recommended. HS:Y
[2024-04-27 10:44] LABS: Body Fluid Polymorphonuclear 5 % (0-25); Body Fluid Red Blood Cells 1397 CUMM (0-2000); Body Fluid White Blood Cells 134 CUMM (0-200)
[2024-04-27 12:26] LABS: Alanine Aminotransferase 11 U/L (7-40); Alkaline Phosphatase 47 U/L (46-116); Anion Gap 8 (5-15); Aspartate Aminotransferase 19 U/L (13-40); BUN/Creatinine Ratio 20.9 (10.0-20.0); Bilirubin, Total 1.7 mg/dL (0.2-1.0); Blood Urea Nitrogen 24 mg/dL (9-23); Carbon Dioxide 22 mmol/L (20-31); Chloride 111 mmol/L (98-107); Glucose 147 mg/dL (74-106); Potassium 3.7 mmol/L (3.5-5.1); Sodium 141 mmol/L (136-145); Total Protein 5.5 g/dL (5.7-8.2)
[2024-04-27 12:29] LABS: Eosinophils # (auto) 0.2 10 ^3/uL (0-0.8); Hemoglobin 10.8 g/dL (12.2-16.2); Monocytes # (auto) 0.8 10 ^3/uL (0-1.3); Red Cell Distribution Width 17.4 % (11.8-14.3)
[2024-04-27 12:32] LABS: Basophils # (auto) 0 10 ^3/uL (0-0.2); Basophils % (auto) 0.5 % (0.0-2.0); Eosinophils % (auto) 2.8 % (0.0-7.0); Hematocrit 33.3 % (36.0-46.0); Lymphocytes # (auto) 0.5 10 ^3/uL (0.4-5.4); Lymphocytes % (auto) 9.5 % (10.0-50.0); Mean Corpuscular Hemoglobin 26.9 pg (28.0-32.0); Mean Corpuscular Hgb Conc. 32.6 g/dL (32.0-36.0); Mean Corpuscular Volume 82.6 fL (80.0-100.0); Monocytes % (auto) 14.1 % (0.0-12.0); Neutrophils # (auto) 4.2 10 ^3/uL (1.6-8.6); Neutrophils % (auto) 73.1 % (37.0-80.0); Platelet Count (auto) 88 10^3/uL (140-450); Red Blood Cells 4.03 10^6/uL (4.0-5.20); White Blood Cell 5.8 10^3/uL (4.4-10.8)
--- NOTE | 2024-04-27 15:20 | DVHPNRES ---
Progress Note Date Seen: Apr 27, 2024 Resident Creating Document: BONNY SALMERON JOSS Has the PT tested + for MRSA If YES, has PT been informed?: No Medical Necessity Reason Pt with a Central, PICC or Fol: No Subjective Review of Systems Patient seen and examined at the bedside. Patient is confused and could not provide a detailed history. Patient reports: No new complaints Objective vital signs Vital Sign Date Time Temp Pulse Resp B/P (MAP) Pulse Ox O2 Delivery O2 Flow Rate FiO2 04/27/24 09:51 73 106/62 04/27/24 08:29 97.9 18 99 97.9 04/26/24 20:00 Nasal Cannula* 2 28 Total Intake and Output 04/26/24 04/26/24 04/27/24 15:00 23:00 07:00 Intake Total 400 ml 300 ml 500 ml Output Total 1050 ml Balance 400 ml 300 ml -550 ml medications Current Medications Medications Dose Ordered Sig/Edgar Route Start Time Stop Time Status Last Admin Dose Admin Levothyroxine Sodium 125 mcg QAM@0600 PO 04/25/24 06:00 04/27/24 06:16 125 MCG Carvedilol 3.125 mg Q12HR PO 04/24/24 22:00 04/27/24 08:51 3.125 MG Diagnostic Test (Pha) 1 strip ACHS 04/24/24 22:00 04/27/24 11:30 1 STRIP Insulin Human Regular ACHS SC 04/24/24 22:00 04/26/24 19:32 2 UNITS Dextrose 50 ml UD PRN IV 04/24/24 22:00 Sodium Chloride 10 ml Q8HR IV 04/24/24 22:00 04/27/24 14:10 10 ML Ondansetron HCl 4 mg Q4HP PRN IV 04/24/24 22:00 Docusate Sodium 100 mg BIDPRN PRN PO 04/24/24 22:00 Acetaminophen 500 mg Q6HP PRN PO 04/24/24 22:00 Aspirin 81 mg DAILY PO 04/25/24 10:00 04/27/24 08:50 81 MG Nitroglycerin 0.4 mg Q5MINP PRN SL 04/24/24 22:45 Pantoprazole Sodium 40 mg DAILY IV 04/26/24 10:00 04/27/24 08:52 40 MG Ipratropium [place] 0.5 mg Q6HPRN PRN NEB 04/25/24 20:45 Albuterol 2.5 mg Q6HPRN PRN NEB 04/25/24 20:45 Piperacillin Sod/ Tazobactam Sod 100 ml @ 25 mls/hr Q6HR IV 04/26/24 18:00 UNV Vancomycin HCl 0 ml @ 0 mls/hr UD IV 04/26/24 13:30 Lactulose 30 ml BID PO 04/26/24 22:00 04/26/24 22:21 30 ML Spironolactone 25 mg DAILY PO 04/27/24 10:00 04/27/24 08:51 25 MG Furosemide 40 mg BID IV 04/26/24 22:00 04/27/24 08:52 40 MG Meropenem 50 ml @ 17 mls/hr Q8H IV 04/27/24 08:00 04/27/24 08:48 17 MLS/HR Mupirocin 1 applic BID EACHNOSTRI 04/27/24 10:00 05/02/24 09:59 04/27/24 08:54 1 APPLIC Atorvastatin Calcium 40 mg HS PO 04/27/24 07:00 04/27/24 08:50 40 MG Examination General Appearance: female lying on the bed, confused, with GCS 13/15 HEENT: Atraumatic, PERRLA, EOMI, Mucous membrane moist/pink Respiratory: Clear to auscultation, Normal air movement Cardiovascular: Regular rate, Normal S1, Normal S2, No murmurs, no chest wall tenderness Abdominal: Normal bowel sounds, Soft, No tenderness, No hepatospenomegaly, No masses Extremities: Bilateral grade 2 pedal edema Skin: There are bilateral bruises with scars on the upper limb laboratory and microbiology Laboratory Tests 04/27/24 10:57 Test 04/27/24 10:57 Range/Units Serum Glucose 147 H 74-106 mg/dL Microbiology Date/Time Source Procedure Growth Status 04/25/24 06:15 Nose MRSA Screen - Final Methicillin Resistant S.aureus Complete 04/24/24 13:43 Voided Urine Urine Culture - Final Klebsiella pneumoniae Complete Labs and/or images reviewed: Labs reviewed by me, Image(s) reviewed by me Problem List/Assessment/Plan Problem List/Assessment/Plan Acute metabolic encephalopathy likely due to UTI/pneumonia/CVA UTI, unspecified location Suspected sepsis Urinalysis, shows UTI picture Blood culture, pending result Urine culture result shows positive for Klebsiella pneumonia, sensitive to meropenem MRSA screening shows methicillin-resistant Staphylococcus aureus, topical mupirocin Discontinue Ceftriaxone and doxycycline Continue vancomycin and meropenem Pneumonia likely due to Gram-positive Gram-negative Chest x-ray shows, multifocal airspace disease, [id number], findings may represent multifocal infection Sputum culture, waiting Acute CVA MRI shows, focus of acute infarct of the left high convexity frontal lobe Neurology on the board, recommended medical management Carotid Doppler shows, calcified atherosclerotic plaques in the bilateral carotid bulbs, [id number]-right. There are elevated peak systolic velocities in the left proximal mid internal carotid arteries corresponding to approximately 50-69% stenosis BELA and CKD grade 2 Nephrology consultation Improving Suspected GI bleed Suspected acute blood loss anemia- Hemoglobin dropped Hemoglobin dropped from 12.5 to 11.7 and then to 10.8 FOB is positive Consult GI Monitoring hemoglobin 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 Abdominal ultrasound shows cirrhosis with ascites Check alcohol level Hepatitis planned Spironolactone 25 mg US-guided paracentesis with 3.1L has been removed Today bilirubin raised at 1.7, up trending, check direct bilirubin Ammonia raised at 67, repeated level GI consulted Lactulose 30 mL b.i.d., with target bowel movement of 2-3 per day Possible spontaneous bacterial peritonitis Consulted IR for the paracentesis; paracentesis done Meropenem Hiatal Hernia, moderate size CT finding Right-sided pleural effusion CT scan shows, moderate right-sided pleural effusion with associated atelectasis Chest ultrasound IR consulted, recommended that not at the level to be drained Left lobe atelectasis CT scan shows, left upper and lower lobe atelectasis Right bundle branch block EKG shows right bundle-branch block pattern Continue telemetry Adrenal nodule CT scan showed 1.5 cm right adrenal nodule which may represent an adenoma Follow up on outpatient basis Uncontrolled hypothyroidism TSH is raised at 24.78 Free T4 is normal, free T3 is decreased Possible pulmonary artery hypertension, dilated Pulmonary artery, [address] scan showed dilatation of the pulmonary trunk up to 33 mm, correlate for pulmonary arterial hypertension Echocardiogram shows, normal left ventricular systolic function estimated ejection fraction 55%. There is a grade 1 diastolic dysfunction. Moderate protein calorie malnutrition Serum albumin is 3.0, improved 75 mg albumin has given Hypomagnesemia Replaced Asthma, stable Breathing treatment p.r.n. Meningioma Brain MRI shows, right lateral frontotemporal 1.3 x 1.1 cm calcified meningioma with prominent CSF space appears to be from moderate frontal lobe predominant brain atrophy Neurology consultation Morbidly obese Hypokalemia Replaced Hypomagnesemia Supplemented Hyperchloremia Monitoring Hematuria Monitoring DVT prophylaxis SCDs Stress ulcer prevention Protonix Code status Goals of care rediscussed for 20 minutes on 04/27/2024; DNR (needs confirmation) Patient status was updated with the family (Sister, Caren) and answered her inquiries, as per her sister the patient is DNR. Order was not placed yet as this need to be confirmed by the rest of the patient's family 66 minutes critical care time Case discussed with Dr. Riojas Plan discussed with: Patient, Other (Sister; RN; grandson) My Orders My Orders Orders - HEWADMAL,HEWAD RESDIENT Procedure Category Date Status Time Carotid Duplx W Color US 04/27/24 Resulted DOP 08:00 Meropenem 1gm Ivpb PHA 04/27/24 In Process (Merrem 1gm/ Ns) 08:00 Mupirocin 2% Oint PHA 04/27/24 In Process Mrsa Nares (Bactroban 10:00 Pt Request For Service PT 04/27/24 Logged 06:34 Paracentesis US 04/27/24 Resulted 07:59 Dietary Evaluation Review Comments: 1) Continue to monitor/assist pt PO intake to meet at least 75% of meals 2) Consider DALTON 1 pkt BID for skin integrity and wounds 3) If pt appetite remains poor consider Ensure Enlive TID with meals 4) Continue current plan of care Expected Outcomes/Goals: 1) Pt appetite to improve 2) F/U in 3-5 days Critical Care Time (mins): 66 Addendum Addendum Addendum I was physically present for the villalobos portions of the service provided to patient by THE RESIDENT. I have reviewed the documentation, discussed the case with resident and agree with the resident's documentation except as noted. Also the patient's clinical case was discussed with the patient's nurse. This medical document was created using an electronic medical record system with computerized dictation system. Although this document has been carefully reviewed, there might still be some phonetic and typographical errors. These areas are purely typographical due to imperfections of the software programs, and do not reflect any compromise in the patient's medical care. Late signature. Date of Service: Apr 27, 2024 Billing Provider: GUSTABO RIOJAS MD Common Visit Codes: [id number] CARE 30-74 MIN (66 minutes) Secondary Visit Codes: [id number] CARE PLAN 30 MINUTES (20 minutes) BONNY SALMERON [facility] Apr 27, 2024 15:20 GUSTABO RIOJAS MD Apr 28, 2024 04:17
[2024-04-27] MEDS: VANCOMYCIN 1GM/200ML PREMIX 200 ML IV SCH (15:41)
--- NOTE | 2024-04-27 19:14 | DVHPN2 ---
Progress Note Date Seen: Apr 27, 2024 Resident Creating Document: THANH DE LUNA RESIDENT Has the PT tested + for MRSA If YES, has PT been informed?: No Medical Necessity Reason Pt with a Central, PICC or Fol: No Subjective Review of Systems Patient is a 83-year-old female with a past medical history of CHF, T2 DM, hypertension, hypothyroidism was brought to the ED with a chief complaint of some generalized weakness. Patient was reported to have increased weakness, fatigue, slurred speech with the past 2 days and worsening shortness of breath by her grandson which prompted the visit to the hospital. Patient denied chest pain, headache, dizziness, shortness of breath, nausea, vomiting, fever, and chills. Chest x-ray shows multifocal airspace disease left greater than right and pulmonary edema. Chest CT shows Moderate right-sided pleural effusion with associated atelectasis. Left upper and lower lobe atelectasis.Dilatation of the pulmonary trunk up to 33 mm. Correlate for pulmonary arterial hypertension. Abdominal ultrasound shows hepatic cirrhosis with ascites, mild splenomegaly, right kidney 11.1 cm, left kidney 11.5 cm in length no evidence of nephrolithiasis or hydronephrosis Review of systems Patient seen and examined at the bedside. Patient is alert and oriented to time, place and person, disoriented to time. Patient is somnolent but awakens to voice and responds to verbal commands with a GCS 14 E3 V5 M6. Blood pressure 106/66 mmHg, SpO2 97% on 2 L oxygen per minute via nasal cannula. Patient feels weak and is unable to move in bed without help , denies shortness of breath on oxygen, no chest pain, no palpitations, no headache, no abdominal pain. Objective vital signs Vital Sign Date Time Temp Pulse Resp B/P (MAP) Pulse Ox O2 Delivery O2 Flow Rate FiO2 04/27/24 16:30 98.3 78 18 110/65 (80) 97 98.3 04/27/24 08:00 Nasal Cannula* 2 28 Total Intake and Output 04/26/24 04/26/24 04/27/24 15:00 23:00 07:00 Intake Total 400 ml 300 ml 500 ml Output Total 1050 ml Balance 400 ml 300 ml -550 ml medications Current Medications Medications Dose Ordered Sig/Edgar Route Start Time Stop Time Status Last Admin Dose Admin Levothyroxine Sodium 125 mcg QAM@0600 PO 04/25/24 06:00 04/27/24 06:16 125 MCG Carvedilol 3.125 mg Q12HR PO 04/24/24 22:00 04/27/24 08:51 3.125 MG Diagnostic Test (Pha) 1 strip ACHS 04/24/24 22:00 04/27/24 17:00 1 STRIP Insulin Human Regular ACHS SC 04/24/24 22:00 04/26/24 19:32 2 UNITS Dextrose 50 ml UD PRN IV 04/24/24 22:00 Sodium Chloride 10 ml Q8HR IV 04/24/24 22:00 04/27/24 14:10 10 ML Ondansetron HCl 4 mg Q4HP PRN IV 04/24/24 22:00 Docusate Sodium 100 mg BIDPRN PRN PO 04/24/24 22:00 Acetaminophen 500 mg Q6HP PRN PO 04/24/24 22:00 Aspirin 81 mg DAILY PO 04/25/24 10:00 04/27/24 08:50 81 MG Nitroglycerin 0.4 mg Q5MINP PRN SL 04/24/24 22:45 Pantoprazole Sodium 40 mg DAILY IV 04/26/24 10:00 04/27/24 08:52 40 MG Ipratropium [place] 0.5 mg Q6HPRN PRN NEB 04/25/24 20:45 Albuterol 2.5 mg Q6HPRN PRN NEB 04/25/24 20:45 Piperacillin Sod/ Tazobactam Sod 100 ml @ 25 mls/hr Q6HR IV 04/26/24 18:00 UNV Vancomycin HCl 0 ml @ 0 mls/hr UD IV 04/26/24 13:30 Lactulose 30 ml BID PO 04/26/24 22:00 04/26/24 22:21 30 ML Spironolactone 25 mg DAILY PO 04/27/24 10:00 04/27/24 08:51 25 MG Furosemide 40 mg BID IV 04/26/24 22:00 04/27/24 08:52 40 MG Meropenem 50 ml @ 17 mls/hr Q8H IV 04/27/24 08:00 04/27/24 15:42 17 MLS/HR Mupirocin 1 applic BID EACHNOSTRI 04/27/24 10:00 05/02/24 09:59 04/27/24 08:54 1 APPLIC Atorvastatin Calcium 40 mg HS PO 04/27/24 07:00 04/27/24 08:50 40 MG Vancomycin HCl 200 ml @ 200 mls/hr Q16H IV 04/27/24 16:00 04/27/24 15:41 200 MLS/HR Examination Physical Examination Gen - no pallor, no icterus, no cyanosis, no clubbing, no LAD, 2+ bilateral pitting edema in the lower extremities up to the mid arredondo Skin - Patients skin is warm and dry. HEENT - normocephalic, atraumatic, moist mucous membranes. Neck - full ROM, no LAD, no JVD Pulmonary - B/L decreased breath sounds with bibasilar crackles, no wheezing, no stridor. cardiovascular - normal S1,S2 heard. Pansystolic murmur heard at the left lower sternal border and the apex. peripheral pulses normal radial 2+, pedal 2+. capillary refill normal <2 secs. GI - soft abdomen . no hepatospleenomegaly. Bowel sounds + Neurological - Patient is A/O X3 . Bilateral upper extremity strength 4/5, bilateral lower extremity strength 3/5, no facial droop, normal speech, no tremor laboratory and microbiology Laboratory Tests 04/27/24 10:57 Test 04/27/24 10:57 Range/Units Serum Glucose 147 H 74-106 mg/dL Microbiology Date/Time Source Procedure Growth Status 04/25/24 06:15 Nose MRSA Screen - Final Methicillin Resistant S.aureus Complete 04/24/24 13:43 Voided Urine Urine Culture - Final Klebsiella pneumoniae Complete Problem List/Assessment/Plan Problem List/Assessment/Plan Assessment and plan # BELA on CKD likely hemodynamically mediated - serum creatinine 1.38--> 1.21-->1.15 - BUN 30--> 23-->24 - urine sodium 75 - urine creatinine 30.14 - serum sodium 141 - FENa 2.1% - continue diuresis furosemide 40 mg b.i.d. IV - avoid nephrotoxic medication - strict I&O - monitor electrolytes # hypokalemia, resolved # hypomagnesemia, resolved #Acute metabolic encephalopathy likely due to UTI/pneumonia/CVA # MRSA nares positive #UTI, urine culture positive for Klebsiella pneumoniae #Pneumonia likely due to Gram+/- bacteria #CVA #Hepatic cirrhosis with ascites #Right-sided pleural effusion #Uncontrolled hypothyroidism #Possible pulmonary artery hypertension, dilated Pulmonary artery, 33 mm #Meningioma Goals of care discussed with the patient for over 20 minutes. Full code. Plan discussed with Dr. Malik Plan discussed with: Patient Dietary Evaluation Review Comments: 1) Continue to monitor/assist pt PO intake to meet at least 75% of meals 2) Consider DALTON 1 pkt BID for skin integrity and wounds 3) If pt appetite remains poor consider Ensure Enlive TID with meals 4) Continue current plan of care Expected Outcomes/Goals: 1) Pt appetite to improve 2) F/U in 3-5 days THANH DE LUNA RESIDENT Apr 27, 2024 19:14
[2024-04-27] MEDS: ALBUMIN 25% 50 ML IV ONE (21:50)
[2024-04-28] VITALS (15 sets, daily range): BP systolic 86–102; BP diastolic 34–61; PULSE 65–98; RESP 16–20; TEMP 97.7–98.1; O2SAT 93–99
[2024-04-28] MEDS: MIDODRINE HCL 10 MG TAB PO ONE (02:02)
[2024-04-28] MEDS: ALBUMIN 25% 50 ML IV ONE (03:56)
[2024-04-28] MEDS: MIDODRINE HCL 10 MG TAB PO PRN (06:14)
[2024-04-28 07:21] LABS: Alanine Aminotransferase 13 U/L (7-40); Alkaline Phosphatase 38 U/L (46-116); Anion Gap 9 (5-15); BUN/Creatinine Ratio 24.3 (10.0-20.0); Blood Urea Nitrogen 26 mg/dL (9-23); Calcium 8.8 mg/dL (8.7-10.4); Carbon Dioxide 23 mmol/L (20-31); Chloride 111 mmol/L (98-107); Glucose 112 mg/dL (74-106); Potassium 3.3 mmol/L (3.5-5.1); Sodium 143 mmol/L (136-145)
[2024-04-28 07:22] LABS: Albumin 2.7 g/dL (3.2-4.8); Aspartate Aminotransferase 13 U/L (13-40); Basophils # (auto) 0 10 ^3/uL (0-0.2); Basophils % (auto) 0.9 % (0.0-2.0); Eosinophils # (auto) 0.2 10 ^3/uL (0-0.8); Eosinophils % (auto) 4.2 % (0.0-7.0); Lymphocytes # (auto) 0.6 10 ^3/uL (0.4-5.4); Mean Corpuscular Hemoglobin 26.7 pg (28.0-32.0); Monocytes # (auto) 0.6 10 ^3/uL (0-1.3); Neutrophils # (auto) 2.3 10 ^3/uL (1.6-8.6); Red Cell Distribution Width 17.5 % (11.8-14.3)
[2024-04-28 07:23] LABS: Bilirubin, Direct 0.6 mg/dL (<0.3); Bilirubin, Total 1.3 mg/dL (0.2-1.0); Total Protein 4.7 g/dL (5.7-8.2)
[2024-04-28 07:25] LABS: Hematocrit 29.1 % (36.0-46.0); Hemoglobin 9.7 g/dL (12.2-16.2); Lymphocytes % (auto) 15.5 % (10.0-50.0); Mean Corpuscular Hgb Conc. 33.2 g/dL (32.0-36.0); Mean Corpuscular Volume 80.4 fL (80.0-100.0); Neutrophils % (auto) 63.4 % (37.0-80.0); Nucleated Red Blood Cells % 0.1 %; Platelet Count (auto) 82 10^3/uL (140-450); Red Blood Cells 3.62 10^6/uL (4.0-5.20); White Blood Cell 3.6 10^3/uL (4.4-10.8)
[2024-04-28] MEDS: IOHEXOL 350 MG/ML 100ML IJ ONE (08:24)
--- NOTE | 2024-04-28 08:29 | DVHPN2 ---
Progress Note Date Seen: Apr 28, 2024 Resident Creating Document: THANH DE LUNA RESIDENT Has the PT tested + for MRSA If YES, has PT been informed?: No Medical Necessity Reason Pt with a Central, PICC or Fol: Yes Subjective Review of Systems Patient is a 83-year-old female with a past medical history of CHF, T2 DM, hypertension, hypothyroidism was brought to the ED with a chief complaint of some generalized weakness. Patient was reported to have increased weakness, fatigue, slurred speech with the past 2 days and worsening shortness of breath by her grandson which prompted the visit to the hospital. Patient denied chest pain, headache, dizziness, shortness of breath, nausea, vomiting, fever, and chills. Chest x-ray shows multifocal airspace disease left greater than right and pulmonary edema. Chest CT shows Moderate right-sided pleural effusion with associated atelectasis. Left upper and lower lobe atelectasis.Dilatation of the pulmonary trunk up to 33 mm. Correlate for pulmonary arterial hypertension. Abdominal ultrasound shows hepatic cirrhosis with ascites, mild splenomegaly, right kidney 11.1 cm, left kidney 11.5 cm in length no evidence of nephrolithiasis or hydronephrosis Review of systems Patient seen and examined at the bedside. Patient is patient is oriented to person and place but disoriented to time. Patient is somnolent but awakens to voice and responds to verbal commands with a GCS 14 E3 V5 M6. Blood pressure 90/60 mmHg, SpO2 93 % on 2 L oxygen per minute via nasal cannula. Patient feels weak and is unable to move in bed without help , denies shortness of breath on oxygen, no chest pain, no palpitations, no headache, no abdominal pain. Repeat Chest x-ray on 04/28 shows cardiomegaly with pulmonary vascular congestion and right-sided multifocal opacities. Objective vital signs Vital Sign Date Time Temp Pulse Resp B/P (MAP) Pulse Ox O2 Delivery O2 Flow Rate FiO2 04/28/24 07:47 98.1 70 16 92/36 (54) 97 98.1 04/27/24 20:01 Nasal Cannula 2.0 04/27/24 20:01 28 Total Intake and Output 04/27/24 04/27/24 04/28/24 15:00 23:00 07:00 Intake Total 600 ml 700 ml Output Total 700 ml 400 ml Balance -100 ml 300 ml medications Current Medications Medications Dose Ordered Sig/Edgar Route Start Time Stop Time Status Last Admin Dose Admin Levothyroxine Sodium 125 mcg QAM@0600 PO 04/25/24 06:00 04/28/24 06:14 125 MCG Carvedilol 3.125 mg Q12HR PO 04/24/24 22:00 04/27/24 08:51 3.125 MG Diagnostic Test (Pha) 1 strip ACHS 04/24/24 22:00 04/28/24 06:38 1 STRIP Insulin Human Regular ACHS SC 04/24/24 22:00 04/27/24 22:45 2 UNITS Dextrose 50 ml UD PRN IV 04/24/24 22:00 Sodium Chloride 10 ml Q8HR IV 04/24/24 22:00 04/28/24 06:38 10 ML Ondansetron HCl 4 mg Q4HP PRN IV 04/24/24 22:00 Docusate Sodium 100 mg BIDPRN PRN PO 04/24/24 22:00 Acetaminophen 500 mg Q6HP PRN PO 04/24/24 22:00 Aspirin 81 mg DAILY PO 04/25/24 10:00 04/27/24 08:50 81 MG Nitroglycerin 0.4 mg Q5MINP PRN SL 04/24/24 22:45 Pantoprazole Sodium 40 mg DAILY IV 04/26/24 10:00 04/27/24 08:52 40 MG Ipratropium [place] 0.5 mg Q6HPRN PRN NEB 04/25/24 20:45 Albuterol 2.5 mg Q6HPRN PRN NEB 04/25/24 20:45 Piperacillin Sod/ Tazobactam Sod 100 ml @ 25 mls/hr Q6HR IV 04/26/24 18:00 UNV Vancomycin HCl 0 ml @ 0 mls/hr UD IV 04/26/24 13:30 Lactulose 30 ml BID PO 04/26/24 22:00 04/26/24 22:21 30 ML Spironolactone 25 mg DAILY PO 04/27/24 10:00 04/27/24 08:51 25 MG Furosemide 40 mg BID IV 04/26/24 22:00 04/27/24 08:52 40 MG Meropenem 50 ml @ 17 mls/hr Q8H IV 11/5/24 08:00 04/27/24 23:49 17 MLS/HR Mupirocin 1 applic BID EACHNOSTRI 04/27/24 10:00 05/02/24 09:59 04/27/24 22:48 1 APPLIC Atorvastatin Calcium 40 mg HS PO 04/27/24 07:00 04/27/24 22:43 40 MG Vancomycin HCl 200 ml @ 200 mls/hr Q16H IV 04/27/24 16:00 04/27/24 15:41 200 MLS/HR Midodrine 10 mg TID@0600,1200,1800 PRN PO 04/28/24 01:45 04/28/24 06:14 10 MG Examination Physical Examination Gen - no pallor, no icterus, no cyanosis, no clubbing, no LAD, 2+ bilateral pitting edema in the lower extremities up to the mid arredondo Skin - Patients skin is warm and dry. HEENT - normocephalic, atraumatic, moist mucous membranes. Neck - full ROM, no LAD, no JVD Pulmonary - B/L decreased breath sounds with bibasilar crackles, no wheezing, no stridor. cardiovascular - normal S1,S2 heard. Pansystolic murmur heard at the left lower sternal border and the apex. peripheral pulses normal radial 2+, pedal 2+. capillary refill normal <2 secs. GI - soft abdomen . no hepatospleenomegaly. Bowel sounds + Neurological - Patient is A/O X2 . Bilateral upper extremity strength 4/5, bilateral lower extremity strength 3/5, no facial droop, normal speech, no tremor laboratory and microbiology Laboratory Tests 04/28/24 06:12 Test 04/28/24 06:12 Range/Units Serum Glucose 112 H 74-106 mg/dL Microbiology Date/Time Source Procedure Growth Status 04/26/24 23:44 Blood Blood Culture - Preliminary NO GROWTH AFTER 24 HOURS OF INCUBATION. Resulted 04/25/24 06:15 Nose MRSA Screen - Final Methicillin Resistant S.aureus Complete 04/24/24 13:43 Voided Urine Urine Culture - Final Klebsiella pneumoniae Complete Problem List/Assessment/Plan Problem List/Assessment/Plan Assessment and plan # BELA on CKD likely hemodynamically mediated - serum creatinine 1.38--> 1.21-->1.15--> 1.07 - BUN 30--> 23-->24--> 26 - urine sodium 75 - urine creatinine 30.14 - serum sodium 141 - FENa 2.1% - continue diuresis - avoid nephrotoxic medication - strict I&O - monitor electrolytes # hypokalemia - supplemented with oral potassium # hypomagnesemia, resolved #Acute metabolic encephalopathy likely due to UTI/pneumonia/CVA # MRSA nares positive #UTI, urine culture positive for Klebsiella pneumoniae #Pneumonia likely due to Gram+/- bacteria #CVA #Hepatic cirrhosis with ascites #Right-sided pleural effusion #Uncontrolled hypothyroidism #Possible pulmonary artery hypertension, dilated Pulmonary artery, 33 mm #Meningioma Goals of care discussed with the patient for over 20 minutes. DNR Plan discussed with Dr. Malik Plan discussed with: Patient Dietary Evaluation Review Comments: 1) Continue to monitor/assist pt PO intake to meet at least 75% of meals 2) Consider DALTON 1 pkt BID for skin integrity and wounds 3) If pt appetite remains poor consider Ensure Enlive TID with meals 4) Continue current plan of care Expected Outcomes/Goals: 1) Pt appetite to improve 2) F/U in 3-5 days THANH DE LUNA RESIDENT Apr 28, 2024 08:29
--- NOTE | 2024-04-28 11:17 | DVHINCON2 ---
GI Consult Consult Note GI consult note Date of Consultation: 04/28/2024 Chief Complaint:+ FOBT, hepatic encephalopathy Referring Physician: H&P: 83-year-old female admitted with generalized weakness Patient waiting for CT head to rule out TIA Patient denies abdominal. No nausea or vomit. No hematemesis. No melena or red blood in stool Patient denies history of GERD symptoms. No EGD in past Patient has history of liver cirrhosis, secondary to medication per patient Past Medical History: Asthma, CHF, DM, HTN, Thyroid disease Past Surgical History: Denies Social History: NO smoking, drinking ETOH and use of illegal drugs. Family History: Noncontributory Review of Systems: Constitutional: no fever, chill, weight loss HEENT: no eye pain, no hearing loss, no oral lesion, no scleral icterus Heart: no chest pain, no chest pressure Lung: no cough, no dyspnea with exertion Abdomen: see HPI Physical exam: General: NAD, AAOX3 Chest: lung white clear to auscultation Heart: RRR, no murmur Abdomen: no tenderness to palpation, +BS Labs: Test 04/28/24 06:12 Range/Units Serum Glucose 112 H 74-106 mg/dL Microbiology Date/Time Source Procedure Growth Status 04/26/24 23:44 Blood Blood Culture - Preliminary NO GROWTH AFTER 24 HOURS OF INCUBATION. Resulted 04/25/24 06:15 Nose MRSA Screen - Final Methicillin Resistant S.aureus Complete 04/24/24 13:43 Voided Urine Urine Culture - Final Klebsiella pneumoniae Complete Imaging: Abdominal ultrasound IMPRESSION: 1. Hepatic cirrhosis with ascites. 2. There is no sonographic evidence of a suspicious appearing hepatic lesion. 3. Mild splenomegaly. 4. Sludge seen within the gallbladder. Assessment: Possible GI bleed with+ FOBT Liver cirrhosis Ascites Plan: Discussed with Dr. Shaw Monitor lab Protonix Lactulose Discussed possible EGD when medically stable, patient at this time is denying any GI procedures to be done We will monitor the patient closely Discussed plan with patient and RN Thank you for this consult Date of Service: Apr 28, 2024 Billing Provider: BIDNU AGUILAR Common Visit Codes: CONSULT ONLY Consultation Codes: [id number] CONSULT <45MIN BINDU AGUILAR Apr 28, 2024 11:17
[2024-04-28] MEDS ORDERED: CALAMINE TOPical LOTION180 ML TOP PRN (13:45)
--- NOTE | 2024-04-28 14:21 | DVH ---
XY CHEST XRAY 1 VIEW, HISTORY: pulmonary congestion COMPARISON: XY CHEST PORTABLE on DOS: 04/27/24, XY CHEST XRAY 1 VIEW on DOS: 04/25/24, XY CHEST PORTABL E on DOS: 04/24/24 XY CHEST PORTABLE on DOS: 04/27/24, XY CHEST XRAY 1 VIEW on DOS: 04/25/24, XY CHEST PORTABLE on DOS: TECHNICAL DATA: 1 view of the chest was obtained. FINDINGS: Lines and tubes: None Cardiomediastinal silhouette: enlarged Pulmonary vasculature: prominent Lung expansion: normal Lung airspace: normal Lung interstitium: prominent Pleura: normal Pneumothorax: no Bones: Unremarkable Other: no IMPRESSION: Cardiomegaly with pulmonary vascular congestion. Similar lung aeration bilaterally.
[2024-04-28] MEDS: POTASSIUM CHL 20 Meq TABLET PO ONE (14:31)
[2024-04-28] MEDS: POTASSIUM EFFERVESENT TAB 25 MEQ PO ONE (14:31)
--- NOTE | 2024-04-28 15:27 | DVHPNRES ---
Progress Note Date Seen: Apr 28, 2024 Resident Creating Document: BONNY SALMERON JOSS Has the PT tested + for MRSA If YES, has PT been informed?: No Medical Necessity Reason Pt with a Central, PICC or Fol: No Subjective Review of Systems Patient seen and examined at the bedside. Patient is feeling better, mental status has improved but still the patient has fluctuation of mental status. Lasted patient BP dropped, and 50 g of albumin was Given and midodrine 10 mg started. Because of dropped Hb and positive SBO, GI was consulted, due to patient refusal could not perform EGD. Patient reports: Feels better Changes from previous H/P or p: Changes Objective vital signs Vital Sign Date Time Temp Pulse Resp B/P (MAP) Pulse Ox O2 Delivery O2 Flow Rate FiO2 04/28/24 11:42 97.7 70 16 102/55 (71) 96 97.7 04/27/24 20:01 Nasal Cannula 2.0 04/27/24 20:01 28 Total Intake and Output 04/27/24 04/27/24 04/28/24 15:00 23:00 07:00 Intake Total 600 ml 700 ml Output Total 700 ml 400 ml Balance -100 ml 300 ml medications Current Medications Medications Dose Ordered Sig/Edgar Route Start Time Stop Time Status Last Admin Dose Admin Levothyroxine Sodium 125 mcg QAM@0600 PO 04/25/24 06:00 04/28/24 06:14 125 MCG Carvedilol 3.125 mg Q12HR PO 04/24/24 22:00 04/27/24 08:51 3.125 MG Diagnostic Test (Pha) 1 strip ACHS 04/24/24 22:00 04/28/24 11:30 1 STRIP Insulin Human Regular ACHS SC 04/24/24 22:00 04/27/24 22:45 2 UNITS Dextrose 50 ml UD PRN IV 04/24/24 22:00 Sodium Chloride 10 ml Q8HR IV 04/24/24 22:00 04/28/24 14:07 10 ML Ondansetron HCl 4 mg Q4HP PRN IV 04/24/24 22:00 Docusate Sodium 100 mg BIDPRN PRN PO 04/24/24 22:00 Acetaminophen 500 mg Q6HP PRN PO 04/24/24 22:00 Aspirin 81 mg DAILY PO 04/25/24 10:00 04/28/24 14:06 81 MG Nitroglycerin 0.4 mg Q5MINP PRN SL 04/24/24 22:45 Pantoprazole Sodium 40 mg DAILY IV 04/26/24 10:00 04/28/24 14:06 40 MG Ipratropium [place] 0.5 mg Q6HPRN PRN NEB 04/25/24 20:45 Albuterol 2.5 mg Q6HPRN PRN NEB 04/25/24 20:45 Piperacillin Sod/ Tazobactam Sod 100 ml @ 25 mls/hr Q6HR IV 04/26/24 18:00 UNV Vancomycin HCl 0 ml @ 0 mls/hr UD IV 04/26/24 13:30 Lactulose 30 ml BID PO 04/26/24 22:00 04/28/24 14:06 30 ML Spironolactone 25 mg DAILY PO 04/27/24 10:00 04/28/24 14:06 25 MG Meropenem 50 ml @ 17 mls/hr Q8H IV 04/27/24 08:00 04/27/24 23:49 17 MLS/HR Mupirocin 1 applic BID EACHNOSTRI 04/27/24 10:00 05/02/24 09:59 04/28/24 10:00 1 APPLIC Atorvastatin Calcium 40 mg HS PO 04/27/24 07:00 04/27/24 22:43 40 MG Vancomycin HCl 200 ml @ 200 mls/hr Q16H IV 04/27/24 16:00 04/28/24 08:24 200 MLS/HR Midodrine 10 mg TID@0600,1200,1800 PRN PO 04/28/24 01:45 04/28/24 06:14 10 MG Potassium Bicarbonate 25 meq DAILY PO 04/29/24 10:00 Bumetanide 1 mg BIDD IV 04/28/24 18:00 Calamine 1 applic QIDP PRN TOP 04/28/24 13:45 Examination General Appearance: female lying on the bed, oriented to person and place but not time. Patient has fluctuation of mental status HEENT: Atraumatic, PERRLA, EOMI, Mucous membrane moist/pink Respiratory: Clear to auscultation, Normal air movement Cardiovascular: Regular rate, Normal S1, Normal S2, No murmurs, no chest wall tenderness Abdominal: Normal bowel sounds, Soft, No tenderness, No hepatospenomegaly, No masses Extremities: Bilateral grade 2 pedal edema Skin: There are bilateral bruises with scars on the upper limb laboratory and microbiology Laboratory Tests 04/28/24 06:12 Test 04/28/24 06:12 Range/Units Serum Glucose 112 H 74-106 mg/dL Microbiology Date/Time Source Procedure Growth Status 04/27/24 08:45 Ascities Fluid Gram Stain - Final Resulted 04/27/24 08:45 Ascities Fluid Body Fluid Culture - Preliminary Resulted 04/26/24 23:44 Blood Blood Culture - Preliminary NO GROWTH AFTER 24 HOURS OF INCUBATION. Resulted 04/25/24 06:15 Nose MRSA Screen - Final Methicillin Resistant S.aureus Complete 04/24/24 13:43 Voided Urine Urine Culture - Final Klebsiella pneumoniae Complete Labs and/or images reviewed: Labs reviewed by me, Image(s) reviewed by me Problem List/Assessment/Plan Problem List/Assessment/Plan Acute metabolic encephalopathy likely due to UTI/pneumonia/CVA UTI, unspecified location Sepsis likely due to UTI/pneumonia Urinalysis, shows UTI picture Blood culture, no growth after 24 hours Urine culture result shows positive for Klebsiella pneumonia, sensitive to ceftriaxone MRSA screening shows methicillin-resistant Staphylococcus aureus, topical mupirocin Discontinue vancomycin and meropenem Start back Ceftriaxone IV and doxycycline p.o. Acute hypoxic respiratory failure, likely due to pneumonia Pneumonia likely due to Gram-positive Gram-negative Chest x-ray shows, multifocal airspace disease, [id number], findings may represent multifocal infection Improving, currently patient maintains saturation at room air Sputum culture, result waiting Incentive spirometry Physical therapy Volume overload, likely due to acute diastolic heart failure/liver cirrhosis Bilateral lower limb shows pedal edema, improving Cardiology is on the board Echocardiogram shows ,normal left ventricular systolic function estimated ejection fraction 55%. There is a grade 1 diastolic dysfunction. Stopped Lasix Start Bumex 1 mg daily Spironolactone 25 mg daily Acute CVA MRI shows, focus of acute infarct of the left high convexity frontal lobe Neurology on the board, recommended medical management Carotid Doppler shows, calcified atherosclerotic plaques in the bilateral carotid bulbs, [id number]-right. There are elevated peak systolic velocities in the left proximal mid internal carotid arteries corresponding to approximately 50-69% stenosis. Per Doppler ultrasound of carotid findings, CT angiogram of the head and neck was recommended, patient and the patient's family was consulted, they have consented for the test. BELA and CKD grade 2, improving Nephrology on board, recommended to continue the diuretics Suspected GI bleed Suspected acute blood loss anemia- Hemoglobin dropped Hemoglobin dropped from 12.5 to 11.7 and then to 10.8 FOB is positive GI consulted, recommended EGD, patient was refusing at the morning time, discussed with the family and authorized legal person(Brittany the daughter, consented for the EGD), we will update the GI team for the possible requirement of EGD Monitoring hemoglobin 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 Abdominal ultrasound shows cirrhosis with ascites Check alcohol level Hepatitis planned Spironolactone 25 mg US-guided paracentesis with 3.1L has been removed Today bilirubin raised at 1.7, up trending, check direct bilirubin Ammonia raised at 67, repeated level GI consulted, recommended EGD, patient was refusing at the morning time, discussed with the family and authorized legal person(Brittany the daughter, consented for the EGD), we will update the GI team for the possible requirement of EGD Lactulose 30 mL b.i.d., with target bowel movement of 2-3 per day Possible spontaneous bacterial peritonitis Consulted IR for the paracentesis; paracentesis done Meropenem Hiatal Hernia, moderate size CT finding Right-sided pleural effusion CT scan shows, moderate right-sided pleural effusion with associated atelectasis Chest ultrasound IR consulted, recommended that not at the level to be drained Left lobe atelectasis CT scan shows, left upper and lower lobe atelectasis Right bundle branch block EKG shows right bundle-branch block pattern Continue telemetry Adrenal nodule CT scan showed 1.5 cm right adrenal nodule which may represent an adenoma Follow up on outpatient basis Uncontrolled hypothyroidism TSH is raised at 24.78 Free T4 is normal, free T3 is decreased Possible pulmonary artery hypertension, dilated Pulmonary artery, [address] scan showed dilatation of the pulmonary trunk up to 33 mm, correlate for pulmonary arterial hypertension Echocardiogram shows, normal left ventricular systolic function estimated ejection fraction 55%. There is a grade 1 diastolic dysfunction. Hypotension Stop carvedilol 50 g of albumin given Midodrine 10 mg t.i.d. Moderate protein calorie malnutrition Serum albumin is 3.0, improved 75 mg albumin has given Hypomagnesemia Replaced Asthma, stable Breathing treatment p.r.n. Meningioma Brain MRI shows, right lateral frontotemporal 1.3 x 1.1 cm calcified meningioma with prominent CSF space appears to be from moderate frontal lobe predominant brain atrophy Neurology consultation Morbidly obese Hypokalemia, likely due to diuretic Replaced Tablet KCl 25 mEq daily Hypomagnesemia Supplemented Hyperchloremia Monitoring Hematuria, currently urine is clear Monitoring DVT prophylaxis SCDs Lovenox 40 mg Stress ulcer prevention Protonix Code status Goals of care rediscussed for 60 minutes on 04/28/2024 with the grandson (Artie in person), granddaughter (Mauro in person) and the daughter (Sylvia, through mobile phone in presence of patient's grandson, granddaughter and the bedside nurse, as she is in [facility], she is legally authorized next of kin for making decision for her mother); DNR (no CPR and no intubation), but can use IV vasopressor in case of requirement. Patient also has been admitted in [facility] ([place]), and [facility] ([place]), request has been sent to get the medical records. Case discussed with Dr. Gordon Plan discussed with: Patient, Other (RN) Plan discussed with: Patient, Other (Sister, grandson and RN) My Orders My Orders Orders - BONNY SALMERON Procedure Category Date Status Time * Gi Dvh Sweat Box Attendant CONS 04/27/24 Transmitted 15:30 Potassium Effervesent PHA 04/29/24 In Process Tab (Klor-Con/Ef) 10:00 DNR SABINE 04/28/24 In Process 13:13 Code Status CODE 04/28/24 Transmitted 13:13 Bumetanide Injection PHA 04/28/24 In Process (Bumex Injection) 18:00 Wound Culture W/ Gs TYE 04/28/24 Logged 13:43 Calamine Lotion PHA 04/28/24 In Process 13:45 Dietary Evaluation Review Comments: 1) Continue to monitor/assist pt PO intake to meet at least 75% of meals 2) Consider DALTON 1 pkt BID for skin integrity and wounds 3) If pt appetite remains poor consider Ensure Enlive TID with meals 4) Continue current plan of care Expected Outcomes/Goals: 1) Pt appetite to improve 2) F/U in 3-5 days BONNY SALMERON RESDIPHILIPP Apr 28, 2024 15:27
[2024-04-28] MEDS: BUMETANIDE 2.5mg/10ml (0.25 mg/ml) INJ IV SCH (18:00)
[2024-04-28] MEDS ORDERED: DOXYCYCLINE 100MG/250ML 250 ML IV SCH (18:15)
[2024-04-28] MEDS ORDERED: ENOXAPARIN SOD 40 MG/0.4 ML SYRINGE SC ONE (19:00)
[2024-04-28] MEDS: cefTRIAXone 1GM/50ML D5W 50 ML IV ONE (19:51)
[2024-04-28 22:07] LABS: Protein, Body Fluid 1.4 g/dL (.)
[2024-04-28] MEDS: DOXYCYCLINE 100 MG TAB/CAP PO SCH (22:09)
--- NOTE | 2024-04-28 23:06 | DVHPN2 ---
Progress Note - Dictate Date Seen: Apr 28, 2024 Has the PT tested + for MRSA If YES, has PT been informed?: No Medical Necessity Reason Pt with a Central, PICC or Fol: Yes Subjective Ms. Watters is a 83 years old right-handed female with a history of hypertension, diabetes, hypothyroidism, congestive heart failure, non alcoholic liver cirrhosis, asthma, morbid obesity, the patient came to the [facility] on 04/24/2024 with a chief company of generalized weakness. I have seen and examined the patient, I have discussed with her nurse, she was awake, oriented to person, place, confused, but with reasonable social skills Ascites culture, 04/27/2024: No growth Blood culture, 04/26/2024: Urine culture, 04/24/2024: Klebsiella pneumonia knee UDS, 04/26/2024: Negative Plasma alcohol, 04/26/2024: Normal Urinalysis, 04/24/2024: WBC: 91, urine leukocyte esterase: 3+ CBC, 04/24/2024: Unremarkable PT/INR/PTT, 04/26/2028: 15.3/1.49/30.2 BUN/CR, 04/26/2024: 23/1.21 HCO3, 04/24/2024: 19, 04/25/2024: 18, 04/26/2024: 19 TBI/AST/ALT/AP, 04/26/2024: 1.4/20/9/41 Ammonia, 04/26/2024: 67 Vitamin B12, 04/26/2024: 2375 Folic acid, 04/26/2024: 8.95 TSH, 04/24/24: 24.78 Carotid Doppler, 04/27/2024: Calcified atherosclerotic plaques in the bilateral carotid bulbs, vnxg-[id number]-naxy-right. There are elevated peak systolic velocities in the left proximal mid internal carotid arteries corresponding to approximately 50-69% stenosis. Further evaluation with CTA neck is recommended. Echocardiogram, 04/26/2024: Normal left ventricular size and dimension. Normal left ventricular systolic function estimated ejection fraction 55%. There is a grade 1 diastolic dysfunction. Normal right ventricular size and dimension. Normal right ventricular systolic function. Normal biatrial size and dimension. There is mild aortic valve sclerosis. There is a moderately severe mitral tricuspid location. There is mild mitral valve regurgitation. Normal tricuspid valve structure and function. The pulmonary valve is grossly normal. No pericardial effusion CT head, 04/24/2024: 1. Bilateral extra-axial fluid collections in the frontal lobes measuring slightly higher than CSF attenuation. These may represent late subacute or chronic subdural hematomas. No mass effect or midline shift. MRI of the brain may be obtained for further evaluation. 2. No evidence of major territory acute infarct MRI head, 04/25/2024: Focus of acute infarct of the left high convexity frontal lobe. The prominent CSF space appears to be from moderate frontal lobe predominant brain atrophy. Right lateral frontotemporal 1.3 x 1.1 cm calcified meningioma vital signs Vital Sign Date Time Temp Pulse Resp B/P (MAP) Pulse Ox O2 Delivery O2 Flow Rate FiO2 04/28/24 21:00 98.0 78 18 100/39 (59) 95 98.0 04/28/24 20:15 0.0 21 04/28/24 19:31 Nasal Cannula* Total Intake and Output 04/27/24 04/27/24 04/28/24 15:00 23:00 07:00 Intake Total 600 ml 700 ml Output Total 700 ml 400 ml Balance -100 ml 300 ml medications Current Medications Medications Dose Ordered Sig/Edgar Route Start Time Stop Time Status Last Admin Dose Admin Levothyroxine Sodium 125 mcg QAM@0600 PO 04/25/24 06:00 04/28/24 06:14 125 MCG Diagnostic Test (Pha) 1 strip ACHS 04/24/24 22:00 04/28/24 22:10 1 STRIP Insulin Human Regular ACHS SC 04/24/24 22:00 04/28/24 22:00 2 UNITS Dextrose 50 ml UD PRN IV 04/24/24 22:00 Sodium Chloride 10 ml Q8HR IV 04/24/24 22:00 04/28/24 22:10 10 ML Ondansetron HCl 4 mg Q4HP PRN IV 04/24/24 22:00 Docusate Sodium 100 mg BIDPRN PRN PO 04/24/24 22:00 Acetaminophen 500 mg Q6HP PRN PO 04/24/24 22:00 Aspirin 81 mg DAILY PO 04/25/24 10:00 04/28/24 14:06 81 MG Nitroglycerin 0.4 mg Q5MINP PRN SL 04/24/24 22:45 Pantoprazole Sodium 40 mg DAILY IV 04/26/24 10:00 04/28/24 14:06 40 MG Ipratropium [place] 0.5 mg Q6HPRN PRN NEB 04/25/24 20:45 Albuterol 2.5 mg Q6HPRN PRN NEB 04/25/24 20:45 Piperacillin Sod/ Tazobactam Sod 100 ml @ 25 mls/hr Q6HR IV 04/26/24 18:00 UNV Lactulose 30 ml BID PO 04/26/24 22:00 04/28/24 22:09 30 ML Spironolactone 25 mg DAILY PO 04/27/24 10:00 04/28/24 14:06 25 MG Mupirocin 1 applic BID EACHNOSTRI 04/27/24 10:00 05/02/24 09:59 04/28/24 22:11 1 APPLIC Atorvastatin Calcium 40 mg HS PO 04/27/24 07:00 04/28/24 22:09 40 MG Midodrine 10 mg TID@0600,1200,1800 PRN PO 04/28/24 01:45 04/28/24 06:14 10 MG Potassium Bicarbonate 25 meq DAILY PO 04/29/24 10:00 Bumetanide 1 mg BIDD IV 04/28/24 18:00 Calamine 1 applic QIDP PRN TOP 04/28/24 13:45 Ceftriaxone Sodium 50 ml @ 100 mls/hr DAILY@09 IV 04/29/24 09:00 Doxycycline Monohydrate 100 mg Q12HR PO 04/28/24 22:00 04/28/24 22:09 100 MG Enoxaparin Sodium 40 mg DAILY SC 04/29/24 10:00 UNV objective General: the patient is well developed and nourished. No acute distress. MUSCULOSKELETAL EXAM: Multiple bruises in the extremities MENTAL STATUS: Subjective SPEECH, LANGUAGE, HIGHER CORTICAL FUNCTION: no aphasia or dysathria. CRANIAL NERVES: Pupils are equal, round and reactive. EOMs full and conjugate. No nystagmus. Facial sensation intact in all three divisions bilaterally. Mandibular strength intact. Facial muscles symmetrical and strength intact. SENSATION: Sensation to touch and pinprick is normal. MOTOR: Normal tone in the upper and lower extremity. Normal muscle bulk. No fasciculations. No abnormal movements or posturing. Muscle strength of the major groups in the upper extremities is 4-5/5. Muscle strength of the major groups in the lower extremities is 3/5. REFLEXES: Deep tendon reflexes are symmetrical. No pathological reflexes. CEREBELLAR/COORDINATION: Finger to nose is unremarkable bilaterally. GAIT/STATION: deferred. laboratory and microbiology Laboratory Tests 04/28/24 06:12 Test 04/28/24 06:12 Range/Units Serum Glucose 112 H 74-106 mg/dL Problem List Altered mental status, general weakness Hepatic encephalopathy Metabolic encephalopathy Metabolic acidosis Liver failure Urinary tract infection Sepsis Acute stroke, likely the stroke is asymptomatic Multiple ecchymosis Left moderate ICA stenosis Assessment/Plan Monitoring Supportive treatment Telemetry Lipitor profile ? CTA neck IV antibiotics Aspirin 81 mg daily Lipitor 20 mg daily for now Lactulose Room bright during daytime Physical therapy Up to chair This medical document was created using an electronic medical record system with [employer] dictation system. Although this document has been carefully reviewed, there may still be some phonetic and typographical errors. These areas are purely typographical due to imperfections of the software programs, and do not reflect any compromise in the patient's medical care. Prognosis poor Dietary Evaluation Review Comments: 1) Continue to monitor/assist pt PO intake to meet at least 75% of meals 2) Consider DALTON 1 pkt BID for skin integrity and wounds 3) If pt appetite remains poor consider Ensure Enlive TID with meals 4) Continue current plan of care Expected Outcomes/Goals: 1) Pt appetite to improve 2) F/U in 3-5 days Plan discussed with: Other DAYLIN MCGRATH MD Apr 28, 2024 23:06
[2024-04-29] VITALS (9 sets, daily range): BP systolic 95–126; BP diastolic 42–79; PULSE 75–94; RESP 17–20; TEMP 97.6–98.9; O2SAT 94–100
--- NOTE | 2024-04-29 07:45 | DVHPN2 ---
Progress Note - Dictate Date Seen: Apr 29, 2024 Has the PT tested + for MRSA If YES, has PT been informed?: No Medical Necessity Reason Pt with a Central, PICC or Fol: Yes Subjective She is on methotrexate No new complaints No active bleeding reported Stool for occult blood was reported positive Patient may have underlying anemia of chronic disease due to chronic renal insufficiency and also rheumatological condition for which she is on methotrexate Neurology consult noted patient may have had an acute stroke and is undergoing neurological workup vital signs Vital Sign Date Time Temp Pulse Resp B/P (MAP) Pulse Ox O2 Delivery O2 Flow Rate FiO2 04/29/24 05:21 125/50 04/29/24 05:00 97.6 87 20 98 97.6 04/28/24 20:15 0.0 21 04/28/24 20:00 Nasal Cannula* Total Intake and Output 04/28/24 04/28/24 04/29/24 15:00 23:00 07:00 Intake Total 250 ml 300 ml Output Total 300 ml 200 ml Balance -50 ml 100 ml medications Current Medications Medications Dose Ordered Sig/Degar Route Start Time Stop Time Status Last Admin Dose Admin Levothyroxine Sodium 125 mcg QAM@0600 PO 04/25/24 06:00 04/29/24 05:17 125 MCG Diagnostic Test (Pha) 1 strip ACHS 04/24/24 22:00 04/29/24 06:18 1 STRIP Insulin Human Regular ACHS SC 04/24/24 22:00 04/28/24 22:00 2 UNITS Dextrose 50 ml UD PRN IV 04/24/24 22:00 Sodium Chloride 10 ml Q8HR IV 04/24/24 22:00 04/29/24 05:17 10 ML Ondansetron HCl 4 mg Q4HP PRN IV 04/24/24 22:00 Docusate Sodium 100 mg BIDPRN PRN PO 04/24/24 22:00 Acetaminophen 500 mg Q6HP PRN PO 04/24/24 22:00 Aspirin 81 mg DAILY PO 04/25/24 10:00 04/28/24 14:06 81 MG Nitroglycerin 0.4 mg Q5MINP PRN SL 04/24/24 22:45 Pantoprazole Sodium 40 mg DAILY IV 04/26/24 10:00 04/28/24 14:06 40 MG Ipratropium [place] 0.5 mg Q6HPRN PRN NEB 04/25/24 20:45 Albuterol 2.5 mg Q6HPRN PRN NEB 04/25/24 20:45 Piperacillin Sod/ Tazobactam Sod 100 ml @ 25 mls/hr Q6HR IV 04/26/24 18:00 UNV Lactulose 30 ml BID PO 04/26/24 22:00 04/28/24 22:09 30 ML Spironolactone 25 mg DAILY PO 04/27/24 10:00 04/28/24 14:06 25 MG Mupirocin 1 applic BID EACHNOSTRI 04/27/24 10:00 05/02/24 09:59 04/28/24 22:11 1 APPLIC Atorvastatin Calcium 40 mg HS PO 04/27/24 07:00 04/28/24 22:09 40 MG Midodrine 10 mg TID@0600,1200,1800 PRN PO 04/28/24 01:45 04/28/24 06:14 10 MG Potassium Bicarbonate 25 meq DAILY PO 04/29/24 10:00 Bumetanide 1 mg BIDD IV 04/28/24 18:00 Calamine 1 applic QIDP PRN TOP 04/28/24 13:45 Ceftriaxone Sodium 50 ml @ 100 mls/hr DAILY@09 IV 04/29/24 09:00 Doxycycline Monohydrate 100 mg Q12HR PO 04/28/24 22:00 04/28/24 22:09 100 MG Enoxaparin Sodium 40 mg DAILY SC 04/29/24 10:00 Future Hold objective General: NAD, AAOX3 Chest: lung white clear to auscultation Heart: RRR, no murmur Abdomen: no tenderness to palpation, +BS laboratory and microbiology Laboratory Tests 04/28/24 06:12 Test 04/28/24 06:12 Range/Units Serum Glucose 112 H 74-106 mg/dL Problems(with codes): (1) Pneumonia, unspecified organism (2) Diabetic nephropathy associated with type 2 diabetes mellitus (3) Generalized weakness (4) CHF (congestive heart failure) (5) Anemia, unspecified Prognosis Plan Protonix 40 mg IV daily Continue to monitor labs, check repeat CBC today Patient does not appear to be medically stable for a colonoscopy or GI workup at this time However if cleared by Neurology then I may schedule her for a possible endoscopy on 04/30/2024 Otherwise the patient can follow up with my office as an outpatient to elect discuss elective panendoscopy once medically stabilized Dietary Evaluation Review Comments: 1) Continue to monitor/assist pt PO intake to meet at least 75% of meals 2) Consider DALTON 1 pkt BID for skin integrity and wounds 3) If pt appetite remains poor consider Ensure Enlive TID with meals 4) Continue current plan of care Expected Outcomes/Goals: 1) Pt appetite to improve 2) F/U in 3-5 days Plan discussed with: Other (Dr Stiles) REGGIE REYES MD Apr 29, 2024 07:45
[2024-04-29] MEDS: POTASSIUM EFFERVESENT TAB 25 MEQ PO SCH (09:15)
[2024-04-29] MEDS: cefTRIAXone 1GM/50ML D5W 50 ML IV SCH (09:16)
[2024-04-29] MEDS: SPIRONOLACTONE 25 MG TAB PO SCH (09:16)
[2024-04-29 09:28] LABS: Hepatitis B Core Total AB Negative (Negative)
[2024-04-29] MEDS ORDERED: ENOXAPARIN SOD 40 MG/0.4 ML SYRINGE SC SCH (10:00)
[2024-04-29] MEDS ORDERED: BUMETANIDE 1 MG TAB PO SCH (10:00)
[2024-04-29] MEDS ORDERED: POTASSIUM EFFERVESENT TAB 25 MEQ PO SCH (11:15)
[2024-04-29 11:38] LABS: Hepatitis B Surface Antibody Negative (Negative); Hepatitis B Surface Antigen Negative (Negative)
[2024-04-29 11:39] LABS: Hepatitis A Total Antibody Positive (Negative); Hepatitis C Antibody Negative (Negative)
--- NOTE | 2024-04-29 11:59 | DVHPN2 ---
Progress Note Date Seen: Apr 29, 2024 Resident Creating Document: THANH DE LUNA RESIDENT Has the PT tested + for MRSA If YES, has PT been informed?: No Medical Necessity Reason Pt with a Central, PICC or Fol: Yes Subjective Review of Systems Patient is a 83-year-old female with a past medical history of CHF, T2 DM, hypertension, hypothyroidism was brought to the ED with a chief complaint of some generalized weakness. Patient was reported to have increased weakness, fatigue, slurred speech with the past 2 days and worsening shortness of breath by her grandson which prompted the visit to the hospital. Patient denied chest pain, headache, dizziness, shortness of breath, nausea, vomiting, fever, and chills. Chest x-ray shows multifocal airspace disease left greater than right and pulmonary edema. Chest CT shows Moderate right-sided pleural effusion with associated atelectasis. Left upper and lower lobe atelectasis.Dilatation of the pulmonary trunk up to 33 mm. Correlate for pulmonary arterial hypertension. Abdominal ultrasound shows hepatic cirrhosis with ascites, mild splenomegaly, right kidney 11.1 cm, left kidney 11.5 cm in length no evidence of nephrolithiasis or hydronephrosis Review of systems Patient seen and examined at the bedside. Patient is patient is oriented to person and place and time. Patient is somnolent but awakens to voice and responds to verbal commands with a GCS 14 E3 V5 M6. Blood pressure 125/50 mmHg, SpO2 95% % on 2 L oxygen per minute via nasal cannula. Patient feels weak and is unable to move in bed without help , denies shortness of breath on oxygen, no chest pain, no palpitations, no headache, no abdominal pain. Repeat Chest x-ray on 04/28 shows cardiomegaly with pulmonary vascular congestion and right-sided multifocal opacities. Objective vital signs Vital Sign Date Time Temp Pulse Resp B/P (MAP) Pulse Ox O2 Delivery O2 Flow Rate FiO2 04/29/24 10:40 95 Nasal Cannula 2.0 04/29/24 10:40 28 04/29/24 09:08 98.9 85 19 117/56 (76) 98.9 Total Intake and Output 04/28/24 04/28/24 04/29/24 15:00 23:00 07:00 Intake Total 250 ml 300 ml Output Total 300 ml 200 ml Balance -50 ml 100 ml medications Current Medications Medications Dose Ordered Sig/Edgar Route Start Time Stop Time Status Last Admin Dose Admin Levothyroxine Sodium 125 mcg QAM@0600 PO 04/25/24 06:00 04/29/24 05:17 125 MCG Diagnostic Test (Pha) 1 strip ACHS 04/24/24 22:00 04/29/24 11:30 1 STRIP Insulin Human Regular ACHS SC 04/24/24 22:00 04/28/24 22:00 2 UNITS Dextrose 50 ml UD PRN IV 04/24/24 22:00 Sodium Chloride 10 ml Q8HR IV 04/24/24 22:00 04/29/24 05:17 10 ML Ondansetron HCl 4 mg Q4HP PRN IV 04/24/24 22:00 Docusate Sodium 100 mg BIDPRN PRN PO 04/24/24 22:00 Aspirin 81 mg DAILY PO 04/25/24 10:00 04/29/24 09:17 81 MG Pantoprazole Sodium 40 mg DAILY IV 04/26/24 10:00 04/29/24 09:14 40 MG Piperacillin Sod/ Tazobactam Sod 100 ml @ 25 mls/hr Q6HR IV 04/26/24 18:00 UNV Lactulose 30 ml BID PO 04/26/24 22:00 04/29/24 09:15 30 ML Mupirocin 1 applic BID EACHNOSTRI 04/27/24 10:00 05/02/24 09:59 04/28/24 22:11 1 APPLIC Atorvastatin Calcium 40 mg HS PO 04/27/24 07:00 04/28/24 22:09 40 MG Midodrine 10 mg TID@0600,1200,1800 PRN PO 04/28/24 01:45 04/28/24 06:14 10 MG Calamine 1 applic QIDP PRN TOP 04/28/24 13:45 Ceftriaxone Sodium 50 ml @ 100 mls/hr DAILY@09 IV 04/29/24 09:00 04/29/24 09:16 100 MLS/HR Spironolactone 100 mg DAILY PO 04/29/24 10:00 04/29/24 09:16 100 MG Enteral Nutritional Formula 240 ml BIDWM PO 04/29/24 12:00 Potassium Bicarbonate 25 meq PRN PO 04/29/24 11:15 Hold Bumetanide 1 mg BID PO 04/29/24 22:00 Examination Physical Examination Gen - mild conjunctival pallor, no icterus, no cyanosis, no clubbing, no LAD, 2+ bilateral pitting edema in the lower extremities up to the mid arredondo Skin - Patients skin is warm and dry. HEENT - normocephalic, atraumatic, moist mucous membranes. Neck - full ROM, no LAD, no JVD Pulmonary - B/L breath sounds improved with minimally appreciable crackles, no wheezing, no stridor. cardiovascular - normal S1,S2 heard. Pansystolic murmur heard at the left lower sternal border and the apex. peripheral pulses normal radial 2+, pedal 2+. capillary refill normal <2 secs. GI - soft obese abdomen without tenderness to palpation. no hepatospleenomegaly. Bowel sounds + Neurological - Patient is A/O X3 . Bilateral upper extremity strength 4/5, bilateral lower extremity strength 3/5, no facial droop, normal speech, no tremor laboratory and microbiology Laboratory Tests 04/28/24 06:12 Test 04/28/24 06:12 Range/Units Serum Glucose 112 H 74-106 mg/dL Microbiology Date/Time Source Procedure Growth Status 04/27/24 08:45 Ascities Fluid Gram Stain - Final Resulted 04/27/24 08:45 Ascities Fluid Body Fluid Culture - Preliminary Resulted 04/26/24 23:44 Blood Blood Culture - Preliminary NO GROWTH AFTER 48 HOURS OF INCUBATION. Resulted 04/25/24 06:15 Nose MRSA Screen - Final Methicillin Resistant S.aureus Complete 04/24/24 13:43 Voided Urine Urine Culture - Final Klebsiella pneumoniae Complete Problem List/Assessment/Plan Problem List/Assessment/Plan Assessment and plan # BELA on CKD likely hemodynamically mediated - serum creatinine 1.38--> 1.21-->1.15--> 1.07 - BUN 30--> 23-->24--> 26 - urine sodium 75 - urine creatinine 30.14 - serum sodium 141 - FENa 2.1% - avoid nephrotoxic medication - strict I&O - monitor electrolytes - continue diuresis on bumetanide. Dose increased from 1 mg p.o. daily to 1 mg p.o. b.i.d. # hypokalemia - supplemented with oral potassium # hypomagnesemia, resolved #Acute metabolic encephalopathy likely due to UTI/pneumonia/CVA # MRSA nares positive #UTI, urine culture positive for Klebsiella pneumoniae #Pneumonia likely due to Gram+/- bacteria #CVA #Hepatic cirrhosis with ascites #Right-sided pleural effusion #Uncontrolled hypothyroidism #Possible pulmonary artery hypertension, dilated Pulmonary artery, 33 mm #Meningioma Goals of care discussed with the patient for over 20 minutes. DNR Plan discussed with Dr. Malik Plan discussed with: Patient My Orders My Orders Orders - THANH DE LUNA Procedure Category Date Status Time Chest Xray 1 View XY 04/28/24 Resulted 13:50 Bumetanide Tablet PHA 04/29/24 In Process (Bumex Tablet) 22:00 Dietary Evaluation Review Comments: 1) Continue to monitor/assist pt PO intake to meet at least 75% of meals 2) Consider DALTON 1 pkt BID for skin integrity and wounds 3) If pt appetite remains poor consider Ensure Enlive TID with meals 4) Continue current plan of care Expected Outcomes/Goals: 1) Pt appetite to improve 2) F/U in 3-5 days THANH DE LUNA RESIDENT Apr 29, 2024 11:59
[2024-04-29] MEDS ORDERED: Ensure HIGH Protein Chocolate 8oz Bottle PO SCH (12:00)
[2024-04-29 12:36] LABS: Alanine Aminotransferase 12 U/L (7-40); Alkaline Phosphatase 46 U/L (46-116); Anion Gap 8 (5-15); Aspartate Aminotransferase 26 U/L (13-40); BUN/Creatinine Ratio 26.9 (10.0-20.0); Bilirubin, Total 1.4 mg/dL (0.2-1.0); Blood Urea Nitrogen 29 mg/dL (9-23); Calcium 9.1 mg/dL (8.7-10.4); Carbon Dioxide 23 mmol/L (20-31); Chloride 110 mmol/L (98-107); Cholesterol 112 mg/dL (< 200); Glucose 156 mg/dL (74-106); HDL Cholesterol 13 mg/dL (40-59); LDL Cholesterol 78 mg/dL (< 100); Potassium 4.3 mmol/L (3.5-5.1); Sodium 141 mmol/L (136-145); Total Protein 5.2 g/dL (5.7-8.2); Triglycerides 108 mg/dL (< 150)
[2024-04-29 15:02] LABS: Basophils # (auto) 0.1 10 ^3/uL (0-0.2); Basophils % (auto) 0.8 % (0.0-2.0); Eosinophils # (auto) 0.2 10 ^3/uL (0-0.8); Eosinophils % (auto) 3.5 % (0.0-7.0); Hematocrit 34.3 % (36.0-46.0); Hemoglobin 11.3 g/dL (12.2-16.2); Lymphocytes # (auto) 0.9 10 ^3/uL (0.4-5.4); Lymphocytes % (auto) 13.1 % (10.0-50.0); Mean Corpuscular Hemoglobin 27.1 pg (28.0-32.0); Mean Corpuscular Volume 82.1 fL (80.0-100.0); Monocytes # (auto) 1.1 10 ^3/uL (0-1.3); Monocytes % (auto) 16.2 % (0.0-12.0); Neutrophils # (auto) 4.5 10 ^3/uL (1.6-8.6); Neutrophils % (auto) 66.4 % (37.0-80.0); Nucleated Red Blood Cells % 0.1 %; Platelet Count (auto) 96 10^3/uL (140-450); Red Blood Cells 4.17 10^6/uL (4.0-5.20); White Blood Cell 6.7 10^3/uL (4.4-10.8)
--- NOTE | 2024-04-29 16:24 | DVH ---
EXAM: XY CHEST PORTABLE TECHNIQUE: Single frontal chest radiograph CLINICAL HISTORY: volume overload COMPARISON: XY CHEST XRAY 1 VIEW on DOS: 04/28/24, XY CHEST PORTABLE on DOS: 04/27/24, XY CHEST XRAY 1 VIEW on DOS: 04/25/24 Findings/Impression: Frontal chest radiograph demonstrates no acute osseous or superficial soft tissue abnormalities. The trachea is midline. The cardiac silhouette and mediastinum are within normal limits. Prominent ep icardial fat pad. Moderate low lung volumes with mild pulmonary vascular congestion. No pneumothorax, pleural effusions, or consolidations.
--- NOTE | 2024-04-29 17:37 | DVH ---
EXAM: CT ANGIO HEAD/NECK HISTORY: Acute stroke. Recommended based on Carotid Duplex. Thank You COMPARISON: None TECHNIQUE: CTA imaging of the head was performed through the [place] following the uneventf ul administration of intravenous contrast. Sagittal and coronal reformatted images were obtained from the source data. 3D/MIP post-processing of the source data set was performed and reviewed by the rad iologist. Radiation Dose Information: CT Dose: CTDI volume is 30.55 mGy. Dose-length product is 1382.12 mGy*cm All CT scans at this medical facility are performed using dose modulation techniques as appropriate t o a performed exam including the following: Automated exposure control was utilized; adjustment of th e MA and/or KV according to patient size; and use of iterative reconstruction technique. FINDINGS: CTA Neck: Aortic Arch: Conventional branching. Atherosclerotic calcification noted Right brachiocephalic artery: Mild calcified plaque formation. Right carotid artery: Moderate calcified plaque formation at the carotid bulb and proximal ICA with u p to 50-60% stenosis. Right subclavian artery: Mild calcified plaque formation. Right vertebral artery: Unremarkable. Left carotid artery: Moderate calcified plaque formation at the carotid bulb and proximal ICA with 70 -80% stenosis. Left subclavian artery: Minimal calcified plaque formation. Left vertebral artery: Unremarkable. OTHER: Small to moderate right pleural effusion. Biapical reticular opacities noted that may represen t edema or atypical pneumonia. Multilevel degenerative disc disease of the cervical spine. CTA Head: [place]: Atherosclerotic calcification of the bilateral carotid siphons noted with approxima tely 50% stenosis. The bilateral TRACEY, MCA and net programmer analyst are intact and patent. No aneurysm is seen. Basil ar artery is patent with minimal calcified plaque formation. Atherosclerotic calcification of the tanya ateral intracranial vertebral arteries noted without significant stenosis. Dural venous: Grossly unremarkable. Other: None. CT head without contrast: Supratentorial Region: No evidence for large acute territorial ischemia. No intracranial hemorrhage is noted. Posterior Fossa: No acute abnormality. Brainstem: Unremarkable. Sellar/Suprasellar Region: Unremarkable. Ventricles, Cisterns, Sulci: Age-appropriate. Orbits: Unremarkable. Paranasal Sinuses: Unremarkable. Mastoid Air Cells: Unremarkable. Bones/Soft Tissues: No acute abnormality. Other: None. IMPRESSION: 1. Moderate calcified plaque formation at the left carotid bulb and proximal ICA with 70-80% stenosis . 2. Mild calcified plaque formation at the right carotid bulb and proximal ICA with 50-60% stenosis . 3. Mild calcified plaque formation of the bilateral carotid siphons with approximately 50% stenosis. 4. No dissection or aneurysm noted. 5. No evidence of acute territorial ischemia or intracranial hemorrhage. 6. Small to moderate right pleural effusion.
--- NOTE | 2024-04-29 20:40 | DVHPNRES ---
Progress Note Date Seen: Apr 29, 2024 Resident Creating Document: BONNY SALMERON JOSS Has the PT tested + for MRSA If YES, has PT been informed?: No Medical Necessity Reason Pt with a Central, PICC or Fol: Yes Subjective Review of Systems Patient seen and examined at the bedside. Patient is feeling better, mental status has improved but still the patient has fluctuation of mental status. Patient's HB also improved Patient reports: No new complaints, Feels better Changes from previous H/P or p: Changes Objective vital signs Vital Sign Date Time Temp Pulse Resp B/P (MAP) Pulse Ox O2 Delivery O2 Flow Rate FiO2 04/29/24 17:12 98.1 86 19 116/59 (78) 96 98.1 04/29/24 10:40 Nasal Cannula 2.0 04/29/24 10:40 28 Total Intake and Output 04/28/24 04/28/24 04/29/24 15:00 23:00 07:00 Intake Total 250 ml 300 ml Output Total 300 ml 200 ml Balance -50 ml 100 ml medications Current Medications Medications Dose Ordered Sig/Edgar Route Start Time Stop Time Status Last Admin Dose Admin Levothyroxine Sodium 125 mcg QAM@0600 PO 04/25/24 06:00 04/29/24 05:17 125 MCG Diagnostic Test (Pha) 1 strip ACHS 04/24/24 22:00 04/29/24 17:16 1 STRIP Insulin Human Regular ACHS SC 04/24/24 22:00 04/29/24 12:02 2 UNITS Dextrose 50 ml UD PRN IV 04/24/24 22:00 Sodium Chloride 10 ml Q8HR IV 04/24/24 22:00 04/29/24 13:53 10 ML Ondansetron HCl 4 mg Q4HP PRN IV 04/24/24 22:00 Docusate Sodium 100 mg BIDPRN PRN PO 04/24/24 22:00 Aspirin 81 mg DAILY PO 04/25/24 10:00 04/29/24 09:17 81 MG Pantoprazole Sodium 40 mg DAILY IV 04/26/24 10:00 04/29/24 09:14 40 MG Piperacillin Sod/ Tazobactam Sod 100 ml @ 25 mls/hr Q6HR IV 04/26/24 18:00 UNV Lactulose 30 ml BID PO 04/26/24 22:00 04/29/24 09:15 30 ML Mupirocin 1 applic BID EACHNOSTRI 04/27/24 10:00 05/02/24 09:59 04/28/24 22:11 1 APPLIC Atorvastatin Calcium 40 mg HS PO 04/27/24 07:00 04/28/24 22:09 40 MG Midodrine 10 mg TID@0600,1200,1800 PRN PO 04/28/24 01:45 04/28/24 06:14 10 MG Calamine 1 applic QIDP PRN TOP 04/28/24 13:45 Ceftriaxone Sodium 50 ml @ 100 mls/hr DAILY@09 IV 04/29/24 09:00 04/29/24 09:16 100 MLS/HR Spironolactone 100 mg DAILY PO 04/29/24 10:00 04/29/24 09:16 100 MG Enteral Nutritional Formula 240 ml BIDWM PO 04/29/24 12:00 Hold Potassium Bicarbonate 25 meq PRN PO 04/29/24 11:15 Hold Bumetanide 1 mg BID PO 04/29/24 22:00 Enteral Nutritional Formula 240 ml BID PO 04/29/24 22:00 Examination General Appearance: female lying on the bed, oriented to person and place but not time. Patient has fluctuation of mental status HEENT: Atraumatic, PERRLA, EOMI, Mucous membrane moist/pink Respiratory: Clear to auscultation, Normal air movement Cardiovascular: Regular rate, Normal S1, Normal S2, No murmurs, no chest wall tenderness Abdominal: Normal bowel sounds, Soft, No tenderness, No hepatospenomegaly, No masses Extremities: Bilateral grade 2 pedal edema Skin: There are bilateral bruises with scars on the upper limb laboratory and microbiology Laboratory Tests 04/29/24 14:25 04/29/24 11:51 Test 04/29/24 11:51 Range/Units Serum Glucose 156 H 74-106 mg/dL Microbiology Date/Time Source Procedure Growth Status 04/27/24 08:45 Ascities Fluid Gram Stain - Final Resulted 04/27/24 08:45 Ascities Fluid Body Fluid Culture - Preliminary Resulted 04/26/24 23:44 Blood Blood Culture - Preliminary NO GROWTH AFTER 48 HOURS OF INCUBATION. Resulted 04/25/24 06:15 Nose MRSA Screen - Final Methicillin Resistant S.aureus Complete 04/24/24 13:43 Voided Urine Urine Culture - Final Klebsiella pneumoniae Complete Labs and/or images reviewed: Labs reviewed by me, Image(s) reviewed by me Problem List/Assessment/Plan Problem List/Assessment/Plan Acute metabolic encephalopathy likely due to UTI/pneumonia/CVA UTI, unspecified location Sepsis likely due to UTI/pneumonia Urinalysis, shows UTI picture Blood culture, no growth after 24 hours Urine culture result shows positive for Klebsiella pneumonia, sensitive to ceftriaxone MRSA screening shows methicillin-resistant Staphylococcus aureus, topical mupirocin Discontinue vancomycin and meropenem Continue Ceftriaxone IV Discontinue doxycycline Acute hypoxic respiratory failure, likely due to pneumonia Pneumonia likely due to Gram-positive Gram-negative Chest x-ray shows, multifocal airspace disease, [id number], findings may represent multifocal infection Improving, currently patient maintains saturation at room air Sputum culture, result waiting Incentive spirometry Physical therapy Volume overload, likely due to acute diastolic heart failure/liver cirrhosis Bilateral lower limb shows pedal edema, improving Cardiology is on the board Echocardiogram shows ,normal left ventricular systolic function estimated ejection fraction 55%. There is a grade 1 diastolic dysfunction. Stopped Lasix Start Bumex 1 mg daily Spironolactone 25 mg daily Acute CVA MRI shows, focus of acute infarct of the left high convexity frontal lobe Neurology on the board, recommended medical management Carotid Doppler shows, calcified atherosclerotic plaques in the bilateral carotid bulbs, [id number]. There are elevated peak systolic velocities in the left proximal mid internal carotid arteries corresponding to approximately 50-69% stenosis. Per Doppler ultrasound of carotid findings, CT angiogram of the head and neck was recommended, patient and the patient's family was consulted, they have consented for the test. BELA and CKD grade 2, improving Nephrology on board, recommended to continue the diuretics Suspected GI bleed Suspected acute blood loss anemia- Hemoglobin dropped Hemoglobin dropped from 12.5 to 11.7 and then to 10.8, now improving FOB is positive GI and the board, recommended that may consider EGD if cleared from Neurology Hemoglobin improving 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 Abdominal ultrasound shows cirrhosis with ascites Check alcohol level Hepatitis planned Spironolactone 25 mg US-guided paracentesis with 3.1L has been removed, Today bilirubin raised at 1.7, up trending, check direct bilirubin Ammonia raised at 67, repeated level GI consulted, recommended EGD, patient was refusing at the morning time, discussed with the family and authorized legal person(Brittany the daughter, consented for the EGD), we will update the GI team for the possible requirement of EGD Lactulose 30 mL b.i.d., with target bowel movement of 2-3 per day Ruled out spontaneous bacterial peritonitis Consulted IR for the paracentesis; paracentesis done, peritoneal fluid analysis shows 95 and cultures shows no growth Continue ceftriaxone Hiatal Hernia, moderate size CT finding Right-sided pleural effusion CT scan shows, moderate right-sided pleural effusion with associated atelectasis Chest ultrasound IR consulted, recommended that not at the level to be drained Left lobe atelectasis CT scan shows, left upper and lower lobe atelectasis Right bundle branch block EKG shows right bundle-branch block pattern Continue telemetry Adrenal nodule CT scan showed 1.5 cm right adrenal nodule which may represent an adenoma Follow up on outpatient basis Uncontrolled hypothyroidism TSH is raised at 24.78 Free T4 is normal, free T3 is decreased Possible pulmonary artery hypertension, dilated Pulmonary artery, [address] scan showed dilatation of the pulmonary trunk up to 33 mm, correlate for pulmonary arterial hypertension Echocardiogram shows, normal left ventricular systolic function estimated ejection fraction 55%. There is a grade 1 diastolic dysfunction. Hypotension Stop carvedilol 50 g of albumin given Midodrine 10 mg t.i.d. Moderate protein calorie malnutrition Serum albumin is 3.0, improved 75 mg albumin has given Hypomagnesemia Replaced Asthma, stable Breathing treatment p.r.n. Meningioma Brain MRI shows, right lateral frontotemporal 1.3 x 1.1 cm calcified meningioma with prominent CSF space appears to be from moderate frontal lobe predominant brain atrophy Neurology consultation Morbidly obese Hypokalemia, likely due to diuretic Replaced Tablet KCl 25 mEq daily Hypomagnesemia Supplemented Hyperchloremia Monitoring Hematuria, currently urine is clear Monitoring Pancytopenia Monitoring DVT prophylaxis SCDs Lovenox 40 mg Stress ulcer prevention Protonix Code status Goals of care rediscussed for 60 minutes on 04/28/2024 with the grandson (Artie in person), granddaughter (Mauro in person) and the daughter (Sylvia, through mobile phone in presence of patient's grandson, granddaughter and the bedside nurse, as she is in [place], she is legally authorized next of kin for making decision for her mother); DNR (no CPR and no intubation), but can use IV vasopressor in case of requirement. Patient also has been admitted in [facility] ([place]), and [facility] ([place]), request has been sent to get the medical records. Case discussed with Dr. Gordon Plan discussed with: Patient, Other (RN) Plan discussed with: Patient (RN) My Orders My Orders Orders - BONNY SALMERON Procedure Category Date Status Time Angio Head/Neck CT 04/29/24 Resulted 10:00 Potassium Effervesent PHA 04/29/24 In Process Tab (Klor-Con/Ef) 11:15 Nutritional PHA 04/29/24 In Process Supplements (Glucerna 22:00 Dietary Evaluation Review Comments: 1) Continue to monitor/assist pt PO intake to meet at least 75% of meals 2) Consider DALTON 1 pkt BID for skin integrity and wounds 3) If pt appetite remains poor consider Ensure Enlive TID with meals 4) Continue current plan of care Expected Outcomes/Goals: 1) Pt appetite to improve 2) F/U in 3-5 days BONNY SALMERON Apr 29, 2024 20:40
[2024-04-29] MEDS: Glucerna Carbsteady SHAKE Vanilla 8oz PO SCH (22:00)
--- NOTE | 2024-04-29 22:25 | DVHPN2 ---
Progress Note - Dictate Date Seen: Apr 29, 2024 Has the PT tested + for MRSA If YES, has PT been informed?: No Medical Necessity Reason Pt with a Central, PICC or Fol: Yes Subjective Ms. Watters is a 83 years old right-handed female with a history of hypertension, diabetes, hypothyroidism, congestive heart failure, non alcoholic liver cirrhosis, asthma, morbid obesity, the patient came to the [facility] on 04/24/2024 with a chief company of generalized weakness. I have seen and examined the patient, I have discussed with her nurse, she was awake, oriented to person, possibly to place, confused, looks tired She was noticed to have fluctuating hemoglobin, and GI bleeding was suspect, endoscopy recommended Ascites culture, 04/27/2024: No growth Blood culture, 04/26/2024: Urine culture, 04/24/2024: Klebsiella pneumonia knee UDS, 04/26/2024: Negative Plasma alcohol, 04/26/2024: Normal Urinalysis, 04/24/2024: WBC: 91, urine leukocyte esterase: 3+ CBC, 04/24/2024: Unremarkable PT/INR/PTT, 04/26/2028: 15.3/1.49/30.2 BUN/CR, 04/26/2024: 23/1.21 HCO3, 04/24/2024: 19, 04/25/2024: 18, 04/26/2024: 19 TBI/AST/ALT/AP, 04/26/2024: 1.4/20/9/41 Ammonia, 04/26/2024: 67 Vitamin B12, 04/26/2024: 2375 Folic acid, 04/26/2024: 8.95 TSH, 04/24/24: 24.78 Carotid Doppler, 04/27/2024: Calcified atherosclerotic plaques in the bilateral carotid bulbs, [id number]. There are elevated peak systolic velocities in the left proximal mid internal carotid arteries corresponding to approximately 50-69% stenosis. Further evaluation with CTA neck is recommended. Echocardiogram, 04/26/2024: Normal left ventricular size and dimension. Normal left ventricular systolic function estimated ejection fraction 55%. There is a grade 1 diastolic dysfunction. Normal right ventricular size and dimension. Normal right ventricular systolic function. Normal biatrial size and dimension. There is mild aortic valve sclerosis. There is a moderately severe mitral tricuspid location. There is mild mitral valve regurgitation. Normal tricuspid valve structure and function. The pulmonary valve is grossly normal. No pericardial effusion CT head, 04/24/2024: 1. Bilateral extra-axial fluid collections in the frontal lobes measuring slightly higher than CSF attenuation. These may represent late subacute or chronic subdural hematomas. No mass effect or midline shift. MRI of the brain may be obtained for further evaluation. 2. No evidence of major territory acute infarct MRI head, 04/25/2024: Focus of acute infarct of the left high convexity frontal lobe. The prominent CSF space appears to be from moderate frontal lobe predominant brain atrophy. Right lateral frontotemporal 1.3 x 1.1 cm calcified meningioma vital signs Vital Sign Date Time Temp Pulse Resp B/P (MAP) Pulse Ox O2 Delivery O2 Flow Rate FiO2 04/29/24 21:00 97.6 94 18 126/79 (95) 98 97.6 04/29/24 10:40 Nasal Cannula 2.0 04/29/24 10:40 28 Total Intake and Output 04/28/24 04/28/24 04/29/24 15:00 23:00 07:00 Intake Total 250 ml 300 ml Output Total 300 ml 200 ml Balance -50 ml 100 ml medications Current Medications Medications Dose Ordered Sig/Edgar Route Start Time Stop Time Status Last Admin Dose Admin Levothyroxine Sodium 125 mcg QAM@0600 PO 04/25/24 06:00 04/29/24 05:17 125 MCG Diagnostic Test (Pha) 1 strip ACHS 04/24/24 22:00 04/29/24 17:16 1 STRIP Insulin Human Regular ACHS SC 04/24/24 22:00 04/29/24 12:02 2 UNITS Dextrose 50 ml UD PRN IV 04/24/24 22:00 Sodium Chloride 10 ml Q8HR IV 04/24/24 22:00 04/29/24 13:53 10 ML Ondansetron HCl 4 mg Q4HP PRN IV 04/24/24 22:00 Docusate Sodium 100 mg BIDPRN PRN PO 04/24/24 22:00 Aspirin 81 mg DAILY PO 04/25/24 10:00 04/29/24 09:17 81 MG Pantoprazole Sodium 40 mg DAILY IV 04/26/24 10:00 04/29/24 09:14 40 MG Piperacillin Sod/ Tazobactam Sod 100 ml @ 25 mls/hr Q6HR IV 04/26/24 18:00 UNV Lactulose 30 ml BID PO 04/26/24 22:00 04/29/24 09:15 30 ML Mupirocin 1 applic BID EACHNOSTRI 04/27/24 10:00 05/02/24 09:59 04/28/24 22:11 1 APPLIC Atorvastatin Calcium 40 mg HS PO 04/27/24 07:00 04/28/24 22:09 40 MG Midodrine 10 mg TID@0600,1200,1800 PRN PO 04/28/24 01:45 04/28/24 06:14 10 MG Calamine 1 applic QIDP PRN TOP 04/28/24 13:45 Ceftriaxone Sodium 50 ml @ 100 mls/hr DAILY@09 IV 04/29/24 09:00 04/29/24 09:16 100 MLS/HR Spironolactone 100 mg DAILY PO 04/29/24 10:00 04/29/24 09:16 100 MG Enteral Nutritional Formula 240 ml BIDWM PO 04/29/24 12:00 Hold Potassium Bicarbonate 25 meq PRN PO 04/29/24 11:15 Hold Bumetanide 1 mg BID PO 04/29/24 22:00 Enteral Nutritional Formula 240 ml BID PO 04/29/24 22:00 objective General: the patient is well developed and nourished. No acute distress. MUSCULOSKELETAL EXAM: Multiple bruises in the extremities MENTAL STATUS: Subjective SPEECH, LANGUAGE, HIGHER CORTICAL FUNCTION: no aphasia or dysathria. CRANIAL NERVES: Pupils are equal, round and reactive. EOMs full and conjugate. No nystagmus. Facial sensation intact in all three divisions bilaterally. Mandibular strength intact. Facial muscles symmetrical and strength intact. SENSATION: Sensation to touch and pinprick is normal. MOTOR: Normal tone in the upper and lower extremity. Normal muscle bulk. No fasciculations. No abnormal movements or posturing. Muscle strength of the major groups in the upper extremities is 4-5/5. Muscle strength of the major groups in the lower extremities is 3/5. REFLEXES: Deep tendon reflexes are symmetrical. No pathological reflexes. CEREBELLAR/COORDINATION: Finger to nose is unremarkable bilaterally. GAIT/STATION: deferred. laboratory and microbiology Laboratory Tests 11/7/24 14:25 04/29/24 11:51 Test 04/29/24 11:51 Range/Units Serum Glucose 156 H 74-106 mg/dL Problem List Altered mental status, general weakness Hepatic encephalopathy Metabolic encephalopathy Metabolic acidosis Liver failure Urinary tract infection Sepsis Acute stroke, likely the stroke is asymptomatic Multiple ecchymosis Left moderate ICA stenosis Anemia, to rule out GI bleeding Assessment/Plan Monitoring Supportive treatment Telemetry Lipitor profile ? CTA neck IV antibiotics Aspirin 81 mg daily Lipitor 20 mg daily for now Lactulose Room bright during daytime Physical therapy Up to chair GI on case Okay to have endoscopy with GI specialty for a neurologic point of view This medical document was created using an electronic medical record system with [employer] dictation system. Although this document has been carefully reviewed, there may still be some phonetic and typographical errors. These areas are purely typographical due to imperfections of the software programs, and do not reflect any compromise in the patient's medical care. Prognosis poor Dietary Evaluation Review Comments: 1) Continue to monitor/assist pt PO intake to meet at least 75% of meals 2) Consider DALTON 1 pkt BID for skin integrity and wounds 3) If pt appetite remains poor consider Ensure Enlive TID with meals 4) Continue current plan of care Expected Outcomes/Goals: 1) Pt appetite to improve 2) F/U in 3-5 days Plan discussed with: Other DAYLIN MCGRATH MD Apr 29, 2024 22:25
[2024-04-29] MEDS: BUMETANIDE 1 MG TAB PO SCH (23:03)
[2024-04-30] VITALS (8 sets, daily range): BP systolic 93–114; BP diastolic 37–76; PULSE 65–90; RESP 17–19; TEMP 97.6–99.2; O2SAT 95–100
[2024-04-30 06:47] LABS: Alanine Aminotransferase 12 U/L (7-40); Alkaline Phosphatase 50 U/L (46-116); Anion Gap 8 (5-15); BUN/Creatinine Ratio 22.3 (10.0-20.0); Blood Urea Nitrogen 21 mg/dL (9-23); Calcium 9.4 mg/dL (8.7-10.4); Carbon Dioxide 22 mmol/L (20-31); Chloride 110 mmol/L (98-107); Glucose 116 mg/dL (74-106); Sodium 140 mmol/L (136-145)
[2024-04-30 06:49] LABS: Aspartate Aminotransferase 27 U/L (13-40)
[2024-04-30 06:50] LABS: Bilirubin, Total 1.4 mg/dL (0.2-1.0); Total Protein 5.4 g/dL (5.7-8.2)
[2024-04-30 06:52] LABS: Hematocrit 37.7 % (36.0-46.0); Mean Corpuscular Hemoglobin 26.6 pg (28.0-32.0); Mean Corpuscular Hgb Conc. 31.9 g/dL (32.0-36.0); Mean Corpuscular Volume 83.5 fL (80.0-100.0); Platelet Count (auto) 98 10^3/uL (140-450); Red Blood Cells 4.51 10^6/uL (4.0-5.20); Red Cell Distribution Width 18.5 % (11.8-14.3); White Blood Cell 6.3 10^3/uL (4.4-10.8)
[2024-04-30 06:57] LABS: Basophils % (manual) 0 (0.0-2.0); Blast Cells 0; Metamyelocytes % 0; Myelocytes % 0; Promyelocytes % 0; Reactive Lymphocytes 0
[2024-04-30 08:04] LABS: Anisocytosis Slight; Band Neutrophils % (manual) 7; Eosinophils % (manual) 4 (0-7); Lymphocytes % (manual) 16 (10.0-50.0); Monocytes % (manual) 9 (0-12); Platelet Estimate Decreased
[2024-04-30 08:05] LABS: Ovalocytes FEW
--- NOTE | 2024-04-30 08:11 | DVHPN2 ---
Progress Note - Dictate Date Seen: Apr 30, 2024 Has the PT tested + for MRSA If YES, has PT been informed?: No Medical Necessity Reason Pt with a Central, PICC or Fol: Yes Subjective No new complaints No active bleeding reported Improved to 12 Stool for occult blood was reported positive Brain MRI showed acute frontal lobe infarct She has evidence of atherosclerosis and carotid stenosis vital signs Vital Sign Date Time Temp Pulse Resp B/P (MAP) Pulse Ox O2 Delivery O2 Flow Rate FiO2 04/30/24 05:03 98.9 90 19 103/76 (85) 100 98.9 04/29/24 20:00 Nasal Cannula* 2 28 Total Intake and Output 04/29/24 04/29/24 04/30/24 14:59 22:59 06:59 Intake Total 425 ml 350 ml Output Total 300 ml 450 ml Balance 125 ml -100 ml medications Current Medications Medications Dose Ordered Sig/Edgar Route Start Time Stop Time Status Last Admin Dose Admin Levothyroxine Sodium 125 mcg QAM@0600 PO 04/25/24 06:00 04/30/24 04:50 125 MCG Diagnostic Test (Pha) 1 strip ACHS 04/24/24 22:00 04/30/24 05:07 1 STRIP Insulin Human Regular ACHS SC 04/24/24 22:00 04/29/24 23:28 2 UNITS Dextrose 50 ml UD PRN IV 04/24/24 22:00 Sodium Chloride 10 ml Q8HR IV 04/24/24 22:00 04/30/24 04:54 10 ML Ondansetron HCl 4 mg Q4HP PRN IV 04/24/24 22:00 Docusate Sodium 100 mg BIDPRN PRN PO 04/24/24 22:00 Aspirin 81 mg DAILY PO 04/25/24 10:00 04/29/24 09:17 81 MG Pantoprazole Sodium 40 mg DAILY IV 04/26/24 10:00 04/29/24 09:14 40 MG Piperacillin Sod/ Tazobactam Sod 100 ml @ 25 mls/hr Q6HR IV 04/26/24 18:00 UNV Lactulose 30 ml BID PO 04/26/24 22:00 04/29/24 23:03 30 ML Mupirocin 1 applic BID EACHNOSTRI 04/27/24 10:00 05/02/24 09:59 04/29/24 22:00 1 APPLIC Atorvastatin Calcium 40 mg HS PO 04/27/24 07:00 04/29/24 22:59 40 MG Midodrine 10 mg TID@0600,1200,1800 PRN PO 04/28/24 01:45 04/28/24 06:14 10 MG Calamine 1 applic QIDP PRN TOP 04/28/24 13:45 Ceftriaxone Sodium 50 ml @ 100 mls/hr DAILY@09 IV 04/29/24 09:00 04/29/24 09:16 100 MLS/HR Spironolactone 100 mg DAILY PO 04/29/24 10:00 04/29/24 09:16 100 MG Enteral Nutritional Formula 240 ml BIDWM PO 04/29/24 12:00 Hold Potassium Bicarbonate 25 meq PRN PO 04/29/24 11:15 Hold Bumetanide 1 mg BID PO 04/29/24 22:00 04/29/24 23:03 1 MG Enteral Nutritional Formula 240 ml BID PO 04/29/24 22:00 objective General: NAD, AAOX3 Chest: lung white clear to auscultation Heart: RRR, no murmur Abdomen: no tenderness to palpation, +BS laboratory and microbiology Laboratory Tests 04/30/24 06:05 Test 04/30/24 06:05 Range/Units Serum Glucose 116 H 74-106 mg/dL Problems(with codes): (1) Acute cerebral infarction (2) Anemia, unspecified (3) Generalized weakness (4) Positive occult stool blood test Prognosis Plan At this time I recommend conservative management and observation Patient has no active GI bleeding H&H is stable She has also had an acute infarct Maintain on PPI Okay to use aspirin along with a PPI Outpatient follow up with GI Services to discuss elective panendoscopy once stabilized Dietary Evaluation Review Comments: 1) Continue to monitor/assist pt PO intake to meet at least 75% of meals 2) Consider DALTON 1 pkt BID for skin integrity and wounds 3) If pt appetite remains poor consider Ensure Enlive TID with meals 4) Continue current plan of care Expected Outcomes/Goals: 1) Pt appetite to improve 2) F/U in 3-5 days Plan discussed with: Other (Dr Stiles) REGGIE REYES MD Apr 30, 2024 08:11
[2024-04-30 11:28] LABS: INR 1.59 (0.9-1.15); Partial Thromboplastin Time 30.4 SEC (24.5-34.5); Prothrombin Time 16.3 sec (9.3-11.8)
--- NOTE | 2024-04-30 11:42 | DVHPN2 ---
Progress Note Date Seen: Apr 30, 2024 Has the PT tested + for MRSA If YES, has PT been informed?: No Medical Necessity Reason Pt with a Central, PICC or Fol: Yes Subjective Patient reports: Feels better Objective vital signs Vital Sign Date Time Temp Pulse Resp B/P (MAP) Pulse Ox O2 Delivery O2 Flow Rate FiO2 04/30/24 08:41 103/76 04/30/24 08:00 83 18 100 Room Air* 0 21 04/30/24 05:03 98.9 98.9 Total Intake and Output 04/29/24 04/29/24 04/30/24 15:00 23:00 07:00 Intake Total 425 ml 350 ml Output Total 300 ml 450 ml Balance 125 ml -100 ml medications Current Medications Medications Dose Ordered Sig/Edgar Route Start Time Stop Time Status Last Admin Dose Admin Levothyroxine Sodium 125 mcg QAM@0600 PO 04/25/24 06:00 04/30/24 04:50 125 MCG Diagnostic Test (Pha) 1 strip ACHS 04/24/24 22:00 04/30/24 05:07 1 STRIP Insulin Human Regular ACHS SC 04/24/24 22:00 04/29/24 23:28 2 UNITS Dextrose 50 ml UD PRN IV 04/24/24 22:00 Sodium Chloride 10 ml Q8HR IV 04/24/24 22:00 04/30/24 04:54 10 ML Ondansetron HCl 4 mg Q4HP PRN IV 04/24/24 22:00 Docusate Sodium 100 mg BIDPRN PRN PO 04/24/24 22:00 Aspirin 81 mg DAILY PO 04/25/24 10:00 04/30/24 08:40 81 MG Pantoprazole Sodium 40 mg DAILY IV 04/26/24 10:00 04/30/24 08:40 40 MG Piperacillin Sod/ Tazobactam Sod 100 ml @ 25 mls/hr Q6HR IV 04/26/24 18:00 UNV Lactulose 30 ml BID PO 04/26/24 22:00 04/30/24 08:39 30 ML Mupirocin 1 applic BID EACHNOSTRI 04/27/24 10:00 05/02/24 09:59 04/30/24 08:49 1 APPLIC Atorvastatin Calcium 40 mg HS PO 04/27/24 07:00 04/29/24 22:59 40 MG Midodrine 10 mg TID@0600,1200,1800 PRN PO 04/28/24 01:45 04/28/24 06:14 10 MG Calamine 1 applic QIDP PRN TOP 04/28/24 13:45 Ceftriaxone Sodium 50 ml @ 100 mls/hr DAILY@09 IV 04/29/24 09:00 04/30/24 08:36 100 MLS/HR Spironolactone 100 mg DAILY PO 04/29/24 10:00 04/30/24 08:39 100 MG Enteral Nutritional Formula 240 ml BIDWM PO 04/29/24 12:00 Hold Potassium Bicarbonate 25 meq PRN PO 04/29/24 11:15 Hold Bumetanide 1 mg BID PO 04/29/24 22:00 04/30/24 08:41 1 MG Enteral Nutritional Formula 240 ml BID PO 04/29/24 22:00 04/30/24 08:49 240 ML Examination: GENERAL:Abnormal, HEENT:Abnormal, LUNGS:Abnormal, CVS:Abnormal, ABDOMEN:Abnormal laboratory and microbiology Laboratory Tests 04/30/24 06:05 Test 04/30/24 06:05 Range/Units Serum Glucose 116 H 74-106 mg/dL Microbiology Date/Time Source Procedure Growth Status 04/27/24 08:45 Ascities Fluid Gram Stain - Final Resulted 04/27/24 08:45 Ascities Fluid Body Fluid Culture - Preliminary Resulted 04/26/24 23:44 Blood Blood Culture - Preliminary NO GROWTH AFTER 72 HOURS OF INCUBATION. Resulted 04/25/24 06:15 Nose MRSA Screen - Final Methicillin Resistant S.aureus Complete 04/24/24 13:43 Voided Urine Urine Culture - Final Klebsiella pneumoniae Complete Problem List/Assessment/Plan Problem List/Assessment/Plan severe pad obesity HTN HL s/p paracentesis CKD CVA carotid stenosis carotid lesion is L sided and cva is L sided need clear recommendation of neuro as if this was main cause of cva, she also has intracranial plaque would recommend asa/ plavix statin at this time without aggressive treatment prob higher risk for TCAR if needed in future Plan discussed with: Patient, Other (rn) Dietary Evaluation Review Comments: 1) Continue to monitor/assist pt PO intake to meet at least 75% of meals 2) Consider DATLON 1 pkt BID for skin integrity and wounds 3) If pt appetite remains poor consider Ensure Enlive TID with meals 4) Continue current plan of care Expected Outcomes/Goals: 1) Pt appetite to improve 2) F/U in 3-5 days Date of Service: Apr 30, 2024 Billing Provider: KOBY NOLAN MD Common Visit Codes: NOT BILLABLE KOBY NOLAN MD Apr 30, 2024 11:42
--- NOTE | 2024-04-30 12:41 | DVHPN2 ---
Progress Note Date Seen: Apr 30, 2024 Resident Creating Document: THANH DE LUNA RESIDENT Has the PT tested + for MRSA If YES, has PT been informed?: No Medical Necessity Reason Pt with a Central, PICC or Fol: Yes Subjective Review of Systems Patient is a 83-year-old female with a past medical history of CHF, T2 DM, hypertension, hypothyroidism was brought to the ED with a chief complaint of some generalized weakness. Patient was reported to have increased weakness, fatigue, slurred speech with the past 2 days and worsening shortness of breath by her grandson which prompted the visit to the hospital. Patient denied chest pain, headache, dizziness, shortness of breath, nausea, vomiting, fever, and chills. Chest x-ray shows multifocal airspace disease left greater than right and pulmonary edema. Chest CT shows Moderate right-sided pleural effusion with associated atelectasis. Left upper and lower lobe atelectasis.Dilatation of the pulmonary trunk up to 33 mm. Correlate for pulmonary arterial hypertension. Abdominal ultrasound shows hepatic cirrhosis with ascites, mild splenomegaly, right kidney 11.1 cm, left kidney 11.5 cm in length no evidence of nephrolithiasis or hydronephrosis Review of systems Patient seen and examined at the bedside. Patient is patient is oriented to person and place and time. Patient is somnolent but awakens to voice and responds to verbal commands with a GCS 14 E3 V5 M6. Blood pressure 103/76 mmHg, SpO2 95% % on room air. Patient feels weak and is unable to move in bed without help , denies shortness of breath on oxygen, no chest pain, no palpitations, no headache, no abdominal pain. Repeat Chest x-ray on 04/28 shows cardiomegaly with pulmonary vascular congestion and right-sided multifocal opacities. Patient had head and neck CTA which showed 70-80% stenosis at the left carotid bulb and proximal ICA, 50-60% stenosis at right carotid bulb and proximal ICA. Other Systems: Patient seen and examined by myself today on rounds with the medicine resident I agree with the assessment and plan Objective vital signs Vital Sign Date Time Temp Pulse Resp B/P (MAP) Pulse Ox O2 Delivery O2 Flow Rate FiO2 04/30/24 08:41 103/76 04/30/24 08:00 83 18 100 Room Air* 0 21 04/30/24 05:03 98.9 98.9 Total Intake and Output 04/29/24 04/29/24 04/30/24 14:59 22:59 06:59 Intake Total 425 ml 350 ml Output Total 300 ml 450 ml Balance 125 ml -100 ml medications Current Medications Medications Dose Ordered Sig/Edgar Route Start Time Stop Time Status Last Admin Dose Admin Levothyroxine Sodium 125 mcg QAM@0600 PO 04/25/24 06:00 04/30/24 04:50 125 MCG Diagnostic Test (Pha) 1 strip ACHS 04/24/24 22:00 04/30/24 12:23 1 STRIP Insulin Human Regular ACHS SC 04/24/24 22:00 04/29/24 23:28 2 UNITS Dextrose 50 ml UD PRN IV 04/24/24 22:00 Sodium Chloride 10 ml Q8HR IV 04/24/24 22:00 04/30/24 12:23 10 ML Ondansetron HCl 4 mg Q4HP PRN IV 04/24/24 22:00 Docusate Sodium 100 mg BIDPRN PRN PO 04/24/24 22:00 Aspirin 81 mg DAILY PO 04/25/24 10:00 04/30/24 08:40 81 MG Pantoprazole Sodium 40 mg DAILY IV 04/26/24 10:00 04/30/24 08:40 40 MG Piperacillin Sod/ Tazobactam Sod 100 ml @ 25 mls/hr Q6HR IV 04/26/24 18:00 UNV Lactulose 30 ml BID PO 04/26/24 22:00 04/30/24 08:39 30 ML Mupirocin 1 applic BID EACHNOSTRI 04/27/24 10:00 05/02/24 09:59 04/30/24 08:49 1 APPLIC Atorvastatin Calcium 40 mg HS PO 04/27/24 07:00 04/29/24 22:59 40 MG Midodrine 10 mg TID@0600,1200,1800 PRN PO 04/28/24 01:45 04/28/24 06:14 10 MG Calamine 1 applic QIDP PRN TOP 04/28/24 13:45 Ceftriaxone Sodium 50 ml @ 100 mls/hr DAILY@09 IV 04/29/24 09:00 04/30/24 08:36 100 MLS/HR Spironolactone 100 mg DAILY PO 04/29/24 10:00 04/30/24 08:39 100 MG Enteral Nutritional Formula 240 ml BIDWM PO 04/29/24 12:00 Hold Potassium Bicarbonate 25 meq PRN PO 04/29/24 11:15 Hold Bumetanide 1 mg BID PO 04/29/24 22:00 04/30/24 08:41 1 MG Enteral Nutritional Formula 240 ml BID PO 04/29/24 22:00 04/30/24 08:49 240 ML Examination Physical Examination Gen - mild conjunctival pallor, no icterus, no cyanosis, no clubbing, no LAD, 2+ bilateral pitting edema in the lower extremities up to the mid arredondo Skin - Patients skin is warm and dry. HEENT - normocephalic, atraumatic, moist mucous membranes. Neck - full ROM, no LAD, no JVD Pulmonary - B/L breath sounds improved with minimally appreciable crackles, no wheezing, no stridor. cardiovascular - normal S1,S2 heard. Pansystolic murmur heard at the left lower sternal border and the apex. peripheral pulses normal radial 2+, pedal 2+. capillary refill normal <2 secs. GI - soft obese abdomen without tenderness to palpation. no hepatospleenomegaly. Bowel sounds + Neurological - Patient is A/O X3 . Bilateral upper extremity strength 4/5, bilateral lower extremity strength 3/5, no facial droop, normal speech, no tremor laboratory and microbiology Laboratory Tests 04/30/24 06:05 Test 04/30/24 06:05 Range/Units Serum Glucose 116 H 74-106 mg/dL Microbiology Date/Time Source Procedure Growth Status 04/27/24 08:45 Ascities Fluid Gram Stain - Final Resulted 04/27/24 08:45 Ascities Fluid Body Fluid Culture - Preliminary Resulted 04/26/24 23:44 Blood Blood Culture - Preliminary NO GROWTH AFTER 72 HOURS OF INCUBATION. Resulted 04/25/24 06:15 Nose MRSA Screen - Final Methicillin Resistant S.aureus Complete 04/24/24 13:43 Voided Urine Urine Culture - Final Klebsiella pneumoniae Complete Problem List/Assessment/Plan Problem List/Assessment/Plan Assessment and plan # BELA on CKD likely hemodynamically mediated - serum creatinine 1.38--> 1.21-->1.15--> 1.07-->0.94 - BUN 30--> 23-->24--> 26-->21 - urine sodium 75 - urine creatinine 30.14 - serum sodium 141 - FENa 2.1% - avoid nephrotoxic medication - strict I&O - monitor electrolytes - advised to continue diuresis on bumetanide 1 mg p.o. b.i.d. # hypokalemia, resolved - supplemented with oral potassium # hypomagnesemia, resolved #Acute metabolic encephalopathy likely due to UTI/pneumonia/CVA # MRSA nares positive #UTI, urine culture positive for Klebsiella pneumoniae #Pneumonia likely due to Gram+/- bacteria #CVA #Hepatic cirrhosis with ascites #Right-sided pleural effusion #Uncontrolled hypothyroidism #Possible pulmonary artery hypertension, dilated Pulmonary artery, 33 mm #Meningioma Patient's kidney function has improved. No further inpatient nephrology workup required. Goals of care discussed with the patient for over 20 minutes. DNR Plan discussed with Dr. Haywood. Plan discussed with: Patient Dietary Evaluation Review Comments: 1) Continue to monitor/assist pt PO intake to meet at least 75% of meals 2) Consider DALTON 1 pkt BID for skin integrity and wounds 3) If pt appetite remains poor consider Ensure Enlive TID with meals 4) Continue current plan of care Expected Outcomes/Goals: 1) Pt appetite to improve 2) F/U in 3-5 days THANH DE LUNA Apr 30, 2024 12:41 SIMEON HAYWOOD MD Apr 30, 2024 16:42
--- NOTE | 2024-04-30 13:29 | DVHPNRES ---
Progress Note Date Seen: Apr 30, 2024 Resident Creating Document: BONNY SALMERON JOSS Has the PT tested + for MRSA If YES, has PT been informed?: No Medical Necessity Reason Pt with a Central, PICC or Fol: Yes Subjective Review of Systems Patient seen and examined at the bedside. Patient is feeling better, mental status has improved but still the patient has fluctuation of mental status. Patient's HB also improved. Patient reports: No new complaints Changes from previous H/P or p: No Changes Objective vital signs Vital Sign Date Time Temp Pulse Resp B/P (MAP) Pulse Ox O2 Delivery O2 Flow Rate FiO2 04/30/24 12:59 97.6 65 19 93/37 (55) 98 97.6 04/30/24 08:00 Room Air* 0 21 Total Intake and Output 04/29/24 04/29/24 04/30/24 15:00 23:00 07:00 Intake Total 425 ml 350 ml Output Total 300 ml 450 ml Balance 125 ml -100 ml medications Current Medications Medications Dose Ordered Sig/Edgar Route Start Time Stop Time Status Last Admin Dose Admin Levothyroxine Sodium 125 mcg QAM@0600 PO 04/25/24 06:00 04/30/24 04:50 125 MCG Diagnostic Test (Pha) 1 strip ACHS 04/24/24 22:00 04/30/24 12:23 1 STRIP Insulin Human Regular ACHS SC 04/24/24 22:00 04/29/24 23:28 2 UNITS Dextrose 50 ml UD PRN IV 04/24/24 22:00 Sodium Chloride 10 ml Q8HR IV 04/24/24 22:00 04/30/24 12:23 10 ML Ondansetron HCl 4 mg Q4HP PRN IV 04/24/24 22:00 Docusate Sodium 100 mg BIDPRN PRN PO 04/24/24 22:00 Aspirin 81 mg DAILY PO 04/25/24 10:00 04/30/24 08:40 81 MG Pantoprazole Sodium 40 mg DAILY IV 04/26/24 10:00 04/30/24 08:40 40 MG Piperacillin Sod/ Tazobactam Sod 100 ml @ 25 mls/hr Q6HR IV 04/26/24 18:00 UNV Lactulose 30 ml BID PO 04/26/24 22:00 04/30/24 08:39 30 ML Mupirocin 1 applic BID EACHNOSTRI 04/27/24 10:00 05/02/24 09:59 04/30/24 08:49 1 APPLIC Atorvastatin Calcium 40 mg HS PO 04/27/24 07:00 04/29/24 22:59 40 MG Midodrine 10 mg TID@0600,1200,1800 PRN PO 04/28/24 01:45 04/28/24 06:14 10 MG Calamine 1 applic QIDP PRN TOP 04/28/24 13:45 Ceftriaxone Sodium 50 ml @ 100 mls/hr DAILY@09 IV 04/29/24 09:00 04/30/24 08:36 100 MLS/HR Spironolactone 100 mg DAILY PO 04/29/24 10:00 04/30/24 08:39 100 MG Enteral Nutritional Formula 240 ml BIDWM PO 04/29/24 12:00 Hold Potassium Bicarbonate 25 meq PRN PO 04/29/24 11:15 Hold Bumetanide 1 mg BID PO 04/29/24 22:00 04/30/24 08:41 1 MG Enteral Nutritional Formula 240 ml BID PO 04/29/24 22:00 04/30/24 08:49 240 ML Examination General Appearance: female lying on the bed, oriented to person and place but not time. Patient has fluctuation of mental status HEENT: Atraumatic, PERRLA, EOMI, Mucous membrane moist/pink Respiratory: Clear to auscultation, Normal air movement Cardiovascular: Regular rate, Normal S1, Normal S2, No murmurs, no chest wall tenderness Abdominal: Normal bowel sounds, Soft, No tenderness, No hepatospenomegaly, No masses Extremities: Bilateral grade 2 pedal edema Skin: There are bilateral bruises with scars on the upper limb laboratory and microbiology Laboratory Tests 04/30/24 06:05 Test 04/30/24 06:05 Range/Units Serum Glucose 116 H 74-106 mg/dL Microbiology Date/Time Source Procedure Growth Status 04/27/24 08:45 Ascities Fluid Gram Stain - Final Resulted 04/27/24 08:45 Ascities Fluid Body Fluid Culture - Preliminary Resulted 04/26/24 23:44 Blood Blood Culture - Preliminary NO GROWTH AFTER 72 HOURS OF INCUBATION. Resulted 04/25/24 06:15 Nose MRSA Screen - Final Methicillin Resistant S.aureus Complete 04/24/24 13:43 Voided Urine Urine Culture - Final Klebsiella pneumoniae Complete Labs and/or images reviewed: Labs reviewed by me, Image(s) reviewed by me Problem List/Assessment/Plan Problem List/Assessment/Plan Acute metabolic encephalopathy likely due to UTI/pneumonia/CVA UTI, unspecified location Sepsis likely due to UTI/pneumonia Urinalysis, shows UTI picture Urine culture result shows positive for Klebsiella pneumonia, sensitive to ceftriaxone Blood culture, no growth after 72 hours MRSA screening shows methicillin-resistant Staphylococcus aureus, topical mupirocin Continue Ceftriaxone IV Acute hypoxic respiratory failure, likely due to pneumonia Pneumonia likely due to Gram-positive Gram-negative Chest x-ray shows, multifocal airspace disease, [id number]-right, findings may represent multifocal infection Improving, currently patient maintains saturation at room air Sputum culture, result waiting Incentive spirometry Physical therapy Volume overload, likely due to acute diastolic heart failure/liver cirrhosis Bilateral lower limb shows pedal edema, improving Cardiology is on the board Echocardiogram shows ,normal left ventricular systolic function estimated ejection fraction 55%. There is a grade 1 diastolic dysfunction. Bumex 2 mg daily Spironolactone 100 mg daily Acute CVA MRI shows, focus of acute infarct of the left high convexity frontal lobe Carotid Doppler shows, calcified atherosclerotic plaques in the bilateral carotid bulbs, [id number]-right. There are elevated peak systolic velocities in the left proximal mid internal carotid arteries corresponding to approximately 50-69% stenosis. CT of head and neck angiogram shows Moderate calcified plaque formation at the left carotid bulb and proximal ICA with 70-80% stenosis, mild calcified plaque formation at the right carotid bulb and proximal ICA with 50-60% stenosis, mild calcified plaque formation of the bilateral carotid siphons with approximately 50% stenosis Cardiology recommended, need clear recommendation of neuro (higher risk for TCAR) as if this was main cause of cva, she also has intracranial plaque, continue aspirin and Plavix BELA and CKD grade 2, improved Nephrology on board, recommended to continue Bumex 2 mg daily Suspected GI bleed Suspected acute blood loss anemia- Hemoglobin dropped Hemoglobin dropped to 10.8, improved back to 12 FOB is positive GI and the board, panendoscopy on outpatient basis, once the patient became stabilized medical 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 Abdominal ultrasound shows cirrhosis with ascites Hepatitis a antibody positive Spironolactone 100 mg US-guided paracentesis with 3.1L has been removed, fluid analysis results shows PMN 95 with no growth on culture Today bilirubin raised at 1.7, downtrending Ammonia raised at 67, downtrending Lactulose 30 mL b.i.d., with target bowel movement of 2-3 per day Ruled out spontaneous bacterial peritonitis Consulted IR for the paracentesis; paracentesis done, peritoneal fluid analysis shows 95 and cultures shows no growth Continue ceftriaxone Hiatal Hernia, moderate size CT finding Right-sided pleural effusion CT scan shows, moderate right-sided pleural effusion with associated atelectasis IR consulted, recommended that not at the level to be drained Left lobe atelectasis CT scan shows, left upper and lower lobe atelectasis Right bundle branch block EKG shows right bundle-branch block pattern Continue telemetry Adrenal nodule CT scan showed 1.5 cm right adrenal nodule which may represent an adenoma Follow up on outpatient basis Uncontrolled hypothyroidism TSH is raised at 24.78 Free T4 is normal, free T3 is decreased Continue levothyroxine 125 mEq daily Possible pulmonary artery hypertension, dilated Pulmonary artery, [address] scan showed dilatation of the pulmonary trunk up to 33 mm, correlate for pulmonary arterial hypertension Echocardiogram shows, normal left ventricular systolic function estimated ejection fraction 55%. There is a grade 1 diastolic dysfunction. Hypotension Stop carvedilol Midodrine 10 mg t.i.d. Moderate protein calorie malnutrition 125 g of albumin is given Nutritional supplement Hypomagnesemia Replaced Asthma, stable Breathing treatment p.r.n. Meningioma Brain MRI shows, right lateral frontotemporal 1.3 x 1.1 cm calcified meningioma with prominent CSF space appears to be from moderate frontal lobe predominant brain atrophy Neurology consultation Morbidly obese Hypokalemia, likely due to diuretic Replaced Hypomagnesemia Supplemented Hyperchloremia Monitoring Hematuria, currently urine is clear Monitoring Pancytopenia Improving DVT prophylaxis SCDs Lovenox 40 mg Stress ulcer prevention Protonix Code status Goals of care discussed for 60 minutes on with the grandson (Artie in person), granddaughter (Mauro in person), sister(Caren), and the daughter (Sylvia, through mobile phone in presence of patient's grandson, granddaughter and the bedside nurse, as she is in [place], she is legally authorized next of kin for making decision for her mother); DNR (no CPR and no intubation), but can use IV vasopressor in case of requirement. Case discussed with Dr. Gordon Plan discussed with: Patient, Other (RN) Plan discussed with: Patient My Orders My Orders Orders - BONNY SALMERON Procedure Category Date Status Time Nutritional PHA 04/29/24 In Process Supplements (Glucerna 22:00 * Evaluation Assistant CONS 04/30/24 Transmitted Consult 11:08 Dietary Evaluation Review Comments: 1) Continue to monitor/assist pt PO intake to meet at least 75% of meals 2) Consider DALTON 1 pkt BID for skin integrity and wounds 3) If pt appetite remains poor consider Ensure Enlive TID with meals 4) Continue current plan of care Expected Outcomes/Goals: 1) Pt appetite to improve 2) F/U in 3-5 days BONNY SALMERON Apr 30, 2024 13:29
[2024-04-30] MEDS: CLOPIDOGREL BISULFATE 75 MG TAB PO ONE (13:30)
--- NOTE | 2024-04-30 20:11 | DVHPN2 ---
Progress Note - Dictate Date Seen: Apr 30, 2024 Has the PT tested + for MRSA If YES, has PT been informed?: No Medical Necessity Reason Pt with a Central, PICC or Fol: Yes Subjective Ms. Watters is a 83 years old right-handed female with a history of hypertension, diabetes, hypothyroidism, congestive heart failure, non alcoholic liver cirrhosis, asthma, morbid obesity, the patient came to the [facility] on 04/24/2024 with a chief company of generalized weakness. I have seen and examined the patient, I have discussed with her nurse, she is awake, oriented to person, place, she was looking more energized, but is still very weak I have discussed with Dr. Anaya, according to him, the patient baseline was mentally normal The case discussed with Dr. Woodward Ascites culture, 04/27/2024: No growth Blood culture, 04/26/2024: Urine culture, 04/24/2024: Klebsiella pneumonia knee UDS, 04/26/2024: Negative Plasma alcohol, 04/26/2024: Normal Urinalysis, 04/24/2024: WBC: 91, urine leukocyte esterase: 3+ CBC, 04/24/2024: Unremarkable PT/INR/PTT, 04/26/2028: 15.3/1.49/30.2 BUN/CR, 04/26/2024: 23/1.21 HCO3, 04/24/2024: 19, 04/25/2024: 18, 04/26/2024: 19 TBI/AST/ALT/AP, 04/26/2024: 1.4/20/9/41 Ammonia, 04/26/2024: 67 TG/HDL/LDL/HDL, 04/29/24: 108/112/78/13 Vitamin B12, 04/26/2024: 2375 Folic acid, 04/26/2024: 8.95 TSH, 04/24/24: 24.78 Carotid Doppler, 04/27/2024: Calcified atherosclerotic plaques in the bilateral carotid bulbs, [id number]-right. There are elevated peak systolic velocities in the left proximal mid internal carotid arteries corresponding to approximately 50-69% stenosis. Further evaluation with CTA neck is recommended. Echocardiogram, 04/26/2024: Normal left ventricular size and dimension. Normal left ventricular systolic function estimated ejection fraction 55%. There is a grade 1 diastolic dysfunction. Normal right ventricular size and dimension. Normal right ventricular systolic function. Normal biatrial size and dimension. There is mild aortic valve sclerosis. There is a moderately severe mitral tricuspid location. There is mild mitral valve regurgitation. Normal tricuspid valve structure and function. The pulmonary valve is grossly normal. No pericardial effusion CT head, 04/24/2024: 1. Bilateral extra-axial fluid collections in the frontal lobes measuring slightly higher than CSF attenuation. These may represent late subacute or chronic subdural hematomas. No mass effect or midline shift. MRI of the brain may be obtained for further evaluation. 2. No evidence of major territory acute infarct CTA neck, head, 04/29/2024: 1. Moderate calcified plaque formation at the left carotid bulb and proximal ICA with 70-80% stenosis. 2. Mild calcified plaque formation at the right carotid bulb and proximal ICA with 50-60% stenosis. 3. Mild calcified plaque formation of the bilateral carotid siphons with approximately 50% stenosis. 4. No dissection or aneurysm noted. 5. No evidence of acute territorial ischemia or intracranial hemorrhage. 6. Small to moderate right pleural effusion MRI head, 04/25/2024: Focus of acute infarct of the left high convexity frontal lobe. The prominent CSF space appears to be from moderate frontal lobe predominant brain atrophy. Right lateral frontotemporal 1.3 x 1.1 cm calcified meningioma vital signs Vital Sign Date Time Temp Pulse Resp B/P (MAP) Pulse Ox O2 Delivery O2 Flow Rate FiO2 04/30/24 17:00 98.7 86 17 102/48 (66) 95 98.7 04/30/24 08:00 Room Air* 0 21 Total Intake and Output 04/29/24 04/29/24 04/30/24 15:00 23:00 07:00 Intake Total 425 ml 350 ml Output Total 300 ml 450 ml Balance 125 ml -100 ml medications Current Medications Medications Dose Ordered Sig/Edgar Route Start Time Stop Time Status Last Admin Dose Admin Levothyroxine Sodium 125 mcg QAM@0600 PO 04/25/24 06:00 04/30/24 04:50 125 MCG Diagnostic Test (Pha) 1 strip ACHS 04/24/24 22:00 04/30/24 16:29 1 STRIP Insulin Human Regular ACHS SC 04/24/24 22:00 04/29/24 23:28 2 UNITS Dextrose 50 ml UD PRN IV 04/24/24 22:00 Sodium Chloride 10 ml Q8HR IV 04/24/24 22:00 04/30/24 12:23 10 ML Ondansetron HCl 4 mg Q4HP PRN IV 04/24/24 22:00 Docusate Sodium 100 mg BIDPRN PRN PO 04/24/24 22:00 Aspirin 81 mg DAILY PO 04/25/24 10:00 04/30/24 08:40 81 MG Pantoprazole Sodium 40 mg DAILY IV 04/26/24 10:00 04/30/24 08:40 40 MG Piperacillin Sod/ Tazobactam Sod 100 ml @ 25 mls/hr Q6HR IV 04/26/24 18:00 UNV Lactulose 30 ml BID PO 04/26/24 22:00 04/30/24 08:39 30 ML Mupirocin 1 applic BID EACHNOSTRI 04/27/24 10:00 05/02/24 09:59 04/30/24 08:49 1 APPLIC Atorvastatin Calcium 40 mg HS PO 04/27/24 07:00 04/29/24 22:59 40 MG Midodrine 10 mg TID@0600,1200,1800 PRN PO 04/28/24 01:45 04/28/24 06:14 10 MG Calamine 1 applic QIDP PRN TOP 04/28/24 13:45 Ceftriaxone Sodium 50 ml @ 100 mls/hr DAILY@09 IV 04/29/24 09:00 04/30/24 08:36 100 MLS/HR Spironolactone 100 mg DAILY PO 04/29/24 10:00 04/30/24 08:39 100 MG Potassium Bicarbonate 25 meq PRN PO 04/29/24 11:15 Hold Bumetanide 1 mg BID PO 04/29/24 22:00 04/30/24 08:41 1 MG Enteral Nutritional Formula 240 ml BID PO 04/29/24 22:00 04/30/24 08:49 240 ML Clopidogrel Bisulfate 75 mg DAILY PO 05/01/24 10:00 objective General: the patient is well developed and nourished. No acute distress. MUSCULOSKELETAL EXAM: Multiple bruises in the extremities MENTAL STATUS: Subjective SPEECH, LANGUAGE, HIGHER CORTICAL FUNCTION: no aphasia or dysathria. CRANIAL NERVES: Pupils are equal, round and reactive. EOMs full and conjugate. No nystagmus. Facial sensation intact in all three divisions bilaterally. Mandibular strength intact. Facial muscles symmetrical and strength intact. SENSATION: Sensation to touch and pinprick is normal. MOTOR: Normal tone in the upper and lower extremity. Normal muscle bulk. No fasciculations. No abnormal movements or posturing. Muscle strength of the major groups in the upper extremities is 4-5/5. Muscle strength of the major groups in the lower extremities is 3/5. REFLEXES: Deep tendon reflexes are symmetrical. No pathological reflexes. CEREBELLAR/COORDINATION: Finger to nose is unremarkable bilaterally. GAIT/STATION: deferred. laboratory and microbiology Laboratory Tests 04/30/24 06:05 Test 04/30/24 06:05 Range/Units Serum Glucose 116 H 74-106 mg/dL Problem List Altered mental status, general weakness Hepatic encephalopathy Metabolic encephalopathy Metabolic acidosis Liver failure Urinary tract infection Sepsis Acute left frontal stroke, likely the stroke is asymptomatic Multiple ecchymosis Severe right internal carotid artery stenosis Moderate left internal carotid artery stenosis Anemia, to rule out GI bleeding Assessment/Plan Monitoring Supportive treatment Telemetry IV antibiotics Aspirin 81 mg daily Lipitor 20 mg daily for now Lactulose Room bright during daytime Physical therapy Up to chair GI on case Further address bilateral carotid stenosis later Okay to have endoscopy with GI specialty for a neurologic point of view This medical document was created using an electronic medical record system with [employer] dictation system. Although this document has been carefully reviewed, there may still be some phonetic and typographical errors. These areas are purely typographical due to imperfections of the software programs, and do not reflect any compromise in the patient's medical care. Prognosis poor Dietary Evaluation Review Comments: 1) Continue to monitor/assist pt PO intake to meet at least 75% of meals 2) Consider DALTON 1 pkt BID for skin integrity and wounds 3) If pt appetite remains poor consider Ensure Enlive TID with meals 4) Continue current plan of care Expected Outcomes/Goals: 1) Pt appetite to improve 2) F/U in 3-5 days Plan discussed with: Other DAYLIN MCGRATH MD Apr 30, 2024 20:11
[2024-05-01] VITALS (8 sets, daily range): BP systolic 89–121; BP diastolic 28–57; PULSE 81–95; RESP 16–17; TEMP 93.6–97.8; O2SAT 91–100
[2024-05-01] MEDS: CLOPIDOGREL BISULFATE 75 MG TAB PO SCH (08:24)
--- NOTE | 2024-05-01 15:15 | DVHPNRES ---
Progress Note Date Seen: May 01, 2024 Resident Creating Document: BONNY SALMERON JOSS Has the PT tested + for MRSA If YES, has PT been informed?: No Medical Necessity Reason Pt with a Central, PICC or Fol: Yes Subjective Review of Systems Patient seen and examined at the bedside. Patient is feeling better, mental status has improved but still the patient has fluctuation of mental status. Patient's HB also improving. Patient reports: No new complaints Changes from previous H/P or p: No Changes Objective vital signs Vital Sign Date Time Temp Pulse Resp B/P (MAP) Pulse Ox O2 Delivery O2 Flow Rate FiO2 05/01/24 11:43 97.7 95 16 101/57 (72) 99 97.7 05/01/24 07:44 Room Air* 0 21 Total Intake and Output 04/30/24 04/30/24 05/01/24 14:59 22:59 06:59 Intake Total 250 ml 300 ml Output Total 250 ml Balance 250 ml 50 ml medications Current Medications Medications Dose Ordered Sig/Edgar Route Start Time Stop Time Status Last Admin Dose Admin Levothyroxine Sodium 125 mcg QAM@0600 PO 04/25/24 06:00 04/30/24 04:50 125 MCG Diagnostic Test (Pha) 1 strip ACHS 04/24/24 22:00 04/30/24 22:11 1 STRIP Insulin Human Regular ACHS SC 04/24/24 22:00 04/29/24 23:28 2 UNITS Dextrose 50 ml UD PRN IV 04/24/24 22:00 Sodium Chloride 10 ml Q8HR IV 04/24/24 22:00 04/30/24 12:23 10 ML Ondansetron HCl 4 mg Q4HP PRN IV 04/24/24 22:00 Docusate Sodium 100 mg BIDPRN PRN PO 04/24/24 22:00 Aspirin 81 mg DAILY PO 04/25/24 10:00 04/30/24 08:40 81 MG Pantoprazole Sodium 40 mg DAILY IV 04/26/24 10:00 05/01/24 08:21 40 MG Piperacillin Sod/ Tazobactam Sod 100 ml @ 25 mls/hr Q6HR IV 04/26/24 18:00 UNV Lactulose 30 ml BID PO 04/26/24 22:00 05/01/24 08:21 30 ML Mupirocin 1 applic BID EACHNOSTRI 04/27/24 10:00 05/02/24 09:59 05/01/24 08:24 1 APPLIC Atorvastatin Calcium 40 mg HS PO 04/27/24 07:00 04/29/24 22:59 40 MG Midodrine 10 mg TID@0600,1200,1800 PRN PO 04/28/24 01:45 04/28/24 06:14 10 MG Calamine 1 applic QIDP PRN TOP 04/28/24 13:45 Ceftriaxone Sodium 50 ml @ 100 mls/hr DAILY@09 IV 04/29/24 09:00 05/01/24 08:20 100 MLS/HR Spironolactone 100 mg DAILY PO 04/29/24 10:00 04/30/24 08:39 100 MG Potassium Bicarbonate 25 meq PRN PO 04/29/24 11:15 Hold Bumetanide 1 mg BID PO 04/29/24 22:00 04/30/24 08:41 1 MG Enteral Nutritional Formula 240 ml BID PO 04/29/24 22:00 05/01/24 08:22 240 ML Clopidogrel Bisulfate 75 mg DAILY PO 05/01/24 10:00 Examination General Appearance: female lying on the bed, oriented to person and place but not time. Patient has fluctuation of mental status HEENT: Atraumatic, PERRLA, EOMI, Mucous membrane moist/pink Respiratory: Clear to auscultation, Normal air movement Cardiovascular: Regular rate, Normal S1, Normal S2, No murmurs, no chest wall tenderness Abdominal: Normal bowel sounds, Soft, No tenderness, No hepatospenomegaly, No masses Extremities: Bilateral grade 1-2 pedal edema Skin: There are bilateral bruises with scars on the upper limb laboratory and microbiology Laboratory Tests 04/30/24 06:05 Test 04/30/24 06:05 Range/Units Serum Glucose 116 H 74-106 mg/dL Microbiology Date/Time Source Procedure Growth Status 04/27/24 08:45 Ascities Fluid Gram Stain - Final Resulted 04/27/24 08:45 Ascities Fluid Body Fluid Culture - Preliminary Resulted 04/26/24 23:44 Blood Blood Culture - Preliminary NO GROWTH AFTER 72 HOURS OF INCUBATION. Resulted 04/25/24 06:15 Nose MRSA Screen - Final Methicillin Resistant S.aureus Complete 04/24/24 13:43 Voided Urine Urine Culture - Final Klebsiella pneumoniae Complete Labs and/or images reviewed: Labs reviewed by me, Image(s) reviewed by me Problem List/Assessment/Plan Problem List/Assessment/Plan Acute metabolic encephalopathy likely due to UTI/pneumonia/CVA UTI, unspecified location Sepsis likely due to UTI/pneumonia Urinalysis, shows UTI picture Urine culture result shows positive for Klebsiella pneumonia, sensitive to ceftriaxone Blood culture, no growth after 72 hours MRSA screening shows methicillin-resistant Staphylococcus aureus, topical mupirocin Continue Ceftriaxone IV Acute hypoxic respiratory failure, likely due to pneumonia Pneumonia likely due to Gram-positive Gram-negative Chest x-ray shows, multifocal airspace disease, [id number], findings may represent multifocal infection Improving, currently patient maintains saturation at room air Sputum culture, result waiting Incentive spirometry Physical therapy Volume overload, likely due to acute diastolic heart failure/liver cirrhosis Bilateral lower limb shows pedal edema, improving Cardiology is on the board Echocardiogram shows ,normal left ventricular systolic function estimated ejection fraction 55%. There is a grade 1 diastolic dysfunction. Bumex 2 mg daily Spironolactone 100 mg daily Acute CVA MRI shows, focus of acute infarct of the left high convexity frontal lobe Carotid Doppler shows, calcified atherosclerotic plaques in the bilateral carotid bulbs, [id number]. There are elevated peak systolic velocities in the left proximal mid internal carotid arteries corresponding to approximately 50-69% stenosis. CT of head and neck angiogram shows Moderate calcified plaque formation at the left carotid bulb and proximal ICA with 70-80% stenosis, mild calcified plaque formation at the right carotid bulb and proximal ICA with 50-60% stenosis, mild calcified plaque formation of the bilateral carotid siphons with approximately 50% stenosis Cardiology recommended, need clear recommendation of neuro (high risk for TCAR) as if this was main cause of cva, she also has intracranial plaque, continue aspirin and Plavix BELA and CKD grade 2, improved Nephrology on board, recommended to continue Bumex 2 mg daily Suspected GI bleed Suspected acute blood loss anemia- Hemoglobin dropped Hemoglobin dropped to 10.8, improved back to 12 FOB is positive GI and the board, panendoscopy on outpatient basis, once the patient became stabilized medical 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 Abdominal ultrasound shows cirrhosis with ascites Hepatitis a antibody positive Spironolactone 100 mg US-guided paracentesis with 3.1L has been removed, fluid analysis results shows PMN 95 with no growth on culture Today bilirubin raised at 1.7, downtrending Ammonia raised at 67, downtrending Lactulose 30 mL b.i.d., with target bowel movement of 2-3 per day Ruled out spontaneous bacterial peritonitis Consulted IR for the paracentesis; paracentesis done, peritoneal fluid analysis shows 95 and cultures shows no growth Continue ceftriaxone Hiatal Hernia, moderate size CT finding Right-sided pleural effusion CT scan shows, moderate right-sided pleural effusion with associated atelectasis IR consulted, recommended that not at the level to be drained Left lobe atelectasis CT scan shows, left upper and lower lobe atelectasis Right bundle branch block EKG shows right bundle-branch block pattern Continue telemetry Adrenal nodule CT scan showed 1.5 cm right adrenal nodule which may represent an adenoma Follow up on outpatient basis Uncontrolled hypothyroidism TSH is raised at 24.78 Free T4 is normal, free T3 is decreased Continue levothyroxine 125 mEq daily Possible pulmonary artery hypertension, dilated Pulmonary artery, [address] scan showed dilatation of the pulmonary trunk up to 33 mm, correlate for pulmonary arterial hypertension Echocardiogram shows, normal left ventricular systolic function estimated ejection fraction 55%. There is a grade 1 diastolic dysfunction. Hypotension Stop carvedilol Midodrine 10 mg t.i.d. Moderate protein calorie malnutrition 125 g of albumin is given Nutritional supplement Hypomagnesemia Replaced Asthma, stable Breathing treatment p.r.n. Meningioma Brain MRI shows, right lateral frontotemporal 1.3 x 1.1 cm calcified meningioma with prominent CSF space appears to be from moderate frontal lobe predominant brain atrophy Neurology consultation Morbidly obese Hypokalemia, likely due to diuretic Replaced Hypomagnesemia Supplemented Hyperchloremia Monitoring Hematuria, currently urine is clear Monitoring Pancytopenia Improving DVT prophylaxis SCDs Lovenox 40 mg Stress ulcer prevention Protonix Code status Goals of care discussed for 60 minutes on with the grandson (Artie in person), granddaughter (Mauro in person), sister(Caren), and the daughter (Sylvia, through mobile phone in presence of patient's grandson, granddaughter and the bedside nurse, as she is in [place], she is legally authorized next of kin for making decision for her mother); DNR (no CPR and no intubation), but can use IV vasopressor in case of requirement. Case discussed with Dr. Way Plan discussed with: Patient, Other (Sister, RN) My Orders My Orders Orders - BONNY SALMERON RESDIPHILIPP Procedure Category Date Status Time Complete Blood Count LAB 05/01/24 Logged 06:42 Comprehensive LAB 05/01/24 Logged Metabolic Panel 06:42 Dietary Evaluation Review Comments: 1) Continue to monitor/assist pt PO intake to meet at least 75% of meals 2) Consider DALTON 1 pkt BID for skin integrity and wounds 3) If pt appetite remains poor consider Ensure Enlive TID with meals 4) Continue current plan of care Expected Outcomes/Goals: 1) Pt appetite to improve 2) F/U in 3-5 days Date of Service: May 01, 2024 Billing Provider: HIREN WAY MD Common Visit Codes: [id number] INP/OBS CARE(HIGH) BONNY SALMERON RESDIENT May 01, 2024 15:[address] MD May 02, 2024 10:31
--- NOTE | 2024-05-01 19:58 | DVHPN2 ---
Progress Note - Dictate Date Seen: May 01, 2024 Has the PT tested + for MRSA If YES, has PT been informed?: No Medical Necessity Reason Pt with a Central, PICC or Fol: Yes Subjective No new complaints No active bleeding reported Improved to 12 Stool for occult blood was reported positive Brain MRI showed acute frontal lobe infarct She has evidence of atherosclerosis and carotid stenosis vital signs Vital Sign Date Time Temp Pulse Resp B/P (MAP) Pulse Ox O2 Delivery O2 Flow Rate FiO2 05/01/24 16:00 97.8 86 16 89/51 (64) 100 97.8 05/01/24 07:44 Room Air* 0 21 Total Intake and Output 04/30/24 04/30/24 05/01/24 15:00 23:00 07:00 Intake Total 250 ml 300 ml Output Total 250 ml Balance 250 ml 50 ml medications Current Medications Medications Dose Ordered Sig/Edgar Route Start Time Stop Time Status Last Admin Dose Admin Levothyroxine Sodium 125 mcg QAM@0600 PO 04/25/24 06:00 04/30/24 04:50 125 MCG Diagnostic Test (Pha) 1 strip ACHS 04/24/24 22:00 04/30/24 22:11 1 STRIP Insulin Human Regular ACHS SC 04/24/24 22:00 04/29/24 23:28 2 UNITS Dextrose 50 ml UD PRN IV 04/24/24 22:00 Sodium Chloride 10 ml Q8HR IV 04/24/24 22:00 05/01/24 14:00 10 ML Ondansetron HCl 4 mg Q4HP PRN IV 04/24/24 22:00 Docusate Sodium 100 mg BIDPRN PRN PO 04/24/24 22:00 Aspirin 81 mg DAILY PO 04/25/24 10:00 04/30/24 08:40 81 MG Pantoprazole Sodium 40 mg DAILY IV 04/26/24 10:00 05/01/24 08:21 40 MG Piperacillin Sod/ Tazobactam Sod 100 ml @ 25 mls/hr Q6HR IV 04/26/24 18:00 UNV Lactulose 30 ml BID PO 04/26/24 22:00 05/01/24 08:21 30 ML Mupirocin 1 applic BID EACHNOSTRI 04/27/24 10:00 05/02/24 09:59 05/01/24 08:24 1 APPLIC Atorvastatin Calcium 40 mg HS PO 04/27/24 07:00 04/29/24 22:59 40 MG Midodrine 10 mg TID@0600,1200,1800 PRN PO 04/28/24 01:45 04/28/24 06:14 10 MG Calamine 1 applic QIDP PRN TOP 04/28/24 13:45 Ceftriaxone Sodium 50 ml @ 100 mls/hr DAILY@09 IV 04/29/24 09:00 05/01/24 08:20 100 MLS/HR Spironolactone 100 mg DAILY PO 04/29/24 10:00 04/30/24 08:39 100 MG Potassium Bicarbonate 25 meq PRN PO 04/29/24 11:15 Hold Bumetanide 1 mg BID PO 04/29/24 22:00 04/30/24 08:41 1 MG Enteral Nutritional Formula 240 ml BID PO 04/29/24 22:00 05/01/24 08:22 240 ML Clopidogrel Bisulfate 75 mg DAILY PO 05/01/24 10:00 objective General: NAD, AAOX3 Chest: lung white clear to auscultation Heart: RRR, no murmur Abdomen: no tenderness to palpation, +BS laboratory and microbiology Laboratory Tests 04/30/24 06:05 Test 04/30/24 06:05 Range/Units Serum Glucose 116 H 74-106 mg/dL Problems(with codes): (1) Positive occult stool blood test (2) Acute cerebral infarction (3) Anemia, unspecified (4) CHF (congestive heart failure) (5) Pneumonia, unspecified organism (6) Diabetic nephropathy associated with type 2 diabetes mellitus Prognosis Plan At this time I recommend conservative management and observation Patient has no active GI bleeding H&H is stable She has also had an acute infarct Maintain on PPI Okay to use aspirin along with a PPI Outpatient follow up with GI Services to discuss elective panendoscopy once stabilized Dietary Evaluation Review Comments: 1) Continue to monitor/assist pt PO intake to meet at least 75% of meals 2) Consider DALTON 1 pkt BID for skin integrity and wounds 3) If pt appetite remains poor consider Ensure Enlive TID with meals 4) Continue current plan of care Expected Outcomes/Goals: 1) Pt appetite to improve 2) F/U in 3-5 days Plan discussed with: Patient REGGIE REYES MD May 01, 2024 19:58
[2024-05-02] VITALS (8 sets, daily range): BP systolic 85–152; BP diastolic 30–114; PULSE 82–95; RESP 16–18; TEMP 97.4–98.9; O2SAT 91–100
[2024-05-02 15:11] LABS: Basophils # (auto) 0 10 ^3/uL (0-0.2); Basophils % (auto) 0.9 % (0.0-2.0); Eosinophils # (auto) 0.2 10 ^3/uL (0-0.8); Eosinophils % (auto) 2.9 % (0.0-7.0); Hematocrit 29.3 % (36.0-46.0); Hemoglobin 9.7 g/dL (12.2-16.2); Lymphocytes # (auto) 0.8 10 ^3/uL (0.4-5.4); Lymphocytes % (auto) 15.1 % (10.0-50.0); Mean Corpuscular Hemoglobin 27.2 pg (28.0-32.0); Mean Corpuscular Hgb Conc. 33.2 g/dL (32.0-36.0); Mean Corpuscular Volume 81.9 fL (80.0-100.0); Monocytes # (auto) 0.9 10 ^3/uL (0-1.3); Monocytes % (auto) 16.4 % (0.0-12.0); Neutrophils # (auto) 3.5 10 ^3/uL (1.6-8.6); Neutrophils % (auto) 64.7 % (37.0-80.0); Nucleated Red Blood Cells % 0.2 %; Platelet Count (auto) 90 10^3/uL (140-450); Red Blood Cells 3.58 10^6/uL (4.0-5.20); White Blood Cell 5.4 10^3/uL (4.4-10.8)
--- NOTE | 2024-05-02 15:20 | DVHPNRES ---
Progress Note Date Seen: May 02, 2024 Resident Creating Document: ELI NEGRETE RESIDENT Has the PT tested + for MRSA If YES, has PT been informed?: No Medical Necessity Reason Pt with a Central, PICC or Fol: Yes Subjective Review of Systems Patient seen and examined at the bedside. Patient is feeling better, mental status has improved but still the patient has fluctuation of mental status. Objective vital signs Vital Sign Date Time Temp Pulse Resp B/P (MAP) Pulse Ox O2 Delivery O2 Flow Rate FiO2 05/02/24 11:30 98.7 86 16 152/114 (127) 99 98.7 05/02/24 08:01 Room Air* 0 21 Total Intake and Output 05/01/24 05/01/24 05/02/24 15:00 23:00 07:00 Intake Total 50 ml 1300 ml 200 ml Output Total 350 ml 250 ml Balance 50 ml 950 ml -50 ml medications Current Medications Medications Dose Ordered Sig/Edgar Route Start Time Stop Time Status Last Admin Dose Admin Levothyroxine Sodium 125 mcg QAM@0600 PO 04/25/24 06:00 05/02/24 06:07 125 MCG Diagnostic Test (Pha) 1 strip ACHS 04/24/24 22:00 05/02/24 11:21 1 STRIP Insulin Human Regular ACHS SC 04/24/24 22:00 05/02/24 06:11 2 UNITS Dextrose 50 ml UD PRN IV 04/24/24 22:00 Sodium Chloride 10 ml Q8HR IV 04/24/24 22:00 05/02/24 11:24 10 ML Ondansetron HCl 4 mg Q4HP PRN IV 04/24/24 22:00 Docusate Sodium 100 mg BIDPRN PRN PO 04/24/24 22:00 Aspirin 81 mg DAILY PO 04/25/24 10:00 04/30/24 08:40 81 MG Pantoprazole Sodium 40 mg DAILY IV 04/26/24 10:00 05/02/24 08:24 40 MG Piperacillin Sod/ Tazobactam Sod 100 ml @ 25 mls/hr Q6HR IV 04/26/24 18:00 UNV Lactulose 30 ml BID PO 04/26/24 22:00 05/02/24 08:24 30 ML Atorvastatin Calcium 40 mg HS PO 04/27/24 07:00 05/01/24 22:13 40 MG Midodrine 10 mg TID@0600,1200,1800 PRN PO 04/28/24 01:45 04/28/24 06:14 10 MG Calamine 1 applic QIDP PRN TOP 04/28/24 13:45 Ceftriaxone Sodium 50 ml @ 100 mls/hr DAILY@09 IV 04/29/24 09:00 05/02/24 08:24 100 MLS/HR Spironolactone 100 mg DAILY PO 04/29/24 10:00 04/30/24 08:39 100 MG Potassium Bicarbonate 25 meq PRN PO 04/29/24 11:15 Hold Bumetanide 1 mg BID PO 04/29/24 22:00 04/30/24 08:41 1 MG Enteral Nutritional Formula 240 ml BID PO 04/29/24 22:00 05/02/24 08:24 240 ML Clopidogrel Bisulfate 75 mg DAILY PO 05/01/24 10:00 Examination General Appearance: female lying on the bed, oriented to person and place but not time. Patient has fluctuation of mental status HEENT: Atraumatic, PERRLA, EOMI, Mucous membrane moist/pink Respiratory: Clear to auscultation, Normal air movement Cardiovascular: Regular rate, Normal S1, Normal S2, No murmurs, no chest wall tenderness Abdominal: Normal bowel sounds, Soft, No tenderness, No hepatospenomegaly, No masses Extremities: Bilateral grade 1-2 pedal edema Skin: There are bilateral bruises with scars on the upper limb laboratory and microbiology Laboratory Tests 05/02/24 14:50 Test 05/02/24 14:50 Range/Units Serum Glucose Pending Microbiology Date/Time Source Procedure Growth Status 04/27/24 08:45 Ascities Fluid Gram Stain - Final Complete 04/27/24 08:45 Ascities Fluid Body Fluid Culture - Final Complete 04/26/24 23:44 Blood Blood Culture - Final NO GROWTH AFTER 5 DAYS OF INCUBATION. Complete 04/25/24 06:15 Nose MRSA Screen - Final Methicillin Resistant S.aureus Complete 04/24/24 13:43 Voided Urine Urine Culture - Final Klebsiella pneumoniae Complete Labs and/or images reviewed: Labs reviewed by me, Image(s) reviewed by me Problem List/Assessment/Plan Problem List/Assessment/Plan Assessment/Plan Acute metabolic encephalopathy likely due to UTI/pneumonia/CVA UTI, unspecified location Sepsis likely due to UTI/pneumonia Urinalysis, shows UTI picture Urine culture result shows positive for Klebsiella pneumonia, sensitive to ceftriaxone Blood culture, no growth after 72 hours MRSA screening shows methicillin-resistant Staphylococcus aureus, topical mupirocin Continue Ceftriaxone IV Acute hypoxic respiratory failure, likely due to pneumonia Pneumonia likely due to Gram-positive Gram-negative Chest x-ray shows, multifocal airspace disease, [id number], findings may represent multifocal infection Improving, currently patient maintains saturation at room air Sputum culture, result waiting Incentive spirometry Physical therapy Volume overload, likely due to acute diastolic heart failure/liver cirrhosis Bilateral lower limb shows pedal edema, improving Cardiology is on the board Echocardiogram shows ,normal left ventricular systolic function estimated ejection fraction 55%. There is a grade 1 diastolic dysfunction. Bumex 2 mg daily Spironolactone 100 mg daily Acute CVA MRI shows, focus of acute infarct of the left high convexity frontal lobe Carotid Doppler shows, calcified atherosclerotic plaques in the bilateral carotid bulbs, [id number]. There are elevated peak systolic velocities in the left proximal mid internal carotid arteries corresponding to approximately 50-69% stenosis. CT of head and neck angiogram shows Moderate calcified plaque formation at the left carotid bulb and proximal ICA with 70-80% stenosis, mild calcified plaque formation at the right carotid bulb and proximal ICA with 50-60% stenosis, mild calcified plaque formation of the bilateral carotid siphons with approximately 50% stenosis Cardiology recommended, need clear recommendation of neuro (high risk for TCAR) as if this was main cause of cva, she also has intracranial plaque, continue aspirin and Plavix BELA and CKD grade 2, improved Nephrology on board, recommended to continue Bumex 2 mg daily Suspected GI bleed Suspected acute blood loss anemia- Hemoglobin dropped Hemoglobin dropped to 10.8, improved back to 12 FOB is positive GI and the board, panendoscopy on outpatient basis, once the patient became stabilized medical 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 Abdominal ultrasound shows cirrhosis with ascites Hepatitis a antibody positive Spironolactone 100 mg US-guided paracentesis with 3.1L has been removed, fluid analysis results shows PMN 95 with no growth on culture Today bilirubin raised at 1.7, downtrending Ammonia raised at 67, downtrending Lactulose 30 mL b.i.d., with target bowel movement of 2-3 per day Ruled out spontaneous bacterial peritonitis Consulted IR for the paracentesis; paracentesis done, peritoneal fluid analysis shows 95 and cultures shows no growth Continue ceftriaxone Hiatal Hernia, moderate size CT finding Right-sided pleural effusion CT scan shows, moderate right-sided pleural effusion with associated atelectasis IR consulted, recommended that not at the level to be drained Left lobe atelectasis CT scan shows, left upper and lower lobe atelectasis Right bundle branch block EKG shows right bundle-branch block pattern Continue telemetry Adrenal nodule CT scan showed 1.5 cm right adrenal nodule which may represent an adenoma Follow up on outpatient basis Uncontrolled hypothyroidism TSH is raised at 24.78 Free T4 is normal, free T3 is decreased Continue levothyroxine 125 mEq daily Possible pulmonary artery hypertension, dilated Pulmonary artery, [address] scan showed dilatation of the pulmonary trunk up to 33 mm, correlate for pulmonary arterial hypertension Echocardiogram shows, normal left ventricular systolic function estimated ejection fraction 55%. There is a grade 1 diastolic dysfunction. Hypotension Stop carvedilol Midodrine 10 mg t.i.d. Moderate protein calorie malnutrition 125 g of albumin is given Nutritional supplement Hypomagnesemia Replaced Asthma, stable Breathing treatment p.r.n. Meningioma Brain MRI shows, right lateral frontotemporal 1.3 x 1.1 cm calcified meningioma with prominent CSF space appears to be from moderate frontal lobe predominant brain atrophy Neurology consultation Morbidly obese Hypokalemia, likely due to diuretic Replaced Hypomagnesemia Supplemented Hyperchloremia Monitoring Hematuria, currently urine is clear Monitoring Pancytopenia Improving DVT prophylaxis SCDs Lovenox 40 mg Stress ulcer prevention Protonix Code status DNR Patient will need neurology evaluation for treatment for carotid artery stenosis, waiting her family for discharge planning Case discussed with Dr. Ramires Plan discussed with: Other My Orders My Orders Orders - ELI NEGRETE RESIDENT Procedure Category Date Status Time Comprehensive LAB 05/02/24 In Process Metabolic Panel 09:04 Magnesium LAB 05/02/24 In Process 09:04 Dietary Evaluation Review Comments: 1) Continue to monitor/assist pt PO intake to meet at least 75% of meals 2) Consider DALTON 1 pkt BID for skin integrity and wounds 3) If pt appetite remains poor consider Ensure Enlive TID with meals 4) Continue current plan of care Expected Outcomes/Goals: 1) Pt appetite to improve 2) F/U in 3-5 days Date of Service: May 02, 2024 Billing Provider: HIREN RAMIRES MD Common Visit Codes: [id number] INP/OBS CARE(HIGH) ELI NEGRETE RESIDENT May 02, 2024 15:20 HIREN RAMIRES MD May 05, 2024 18:16
[2024-05-02 15:35] LABS: Albumin 2.5 g/dL (3.2-4.8); Alkaline Phosphatase 51 U/L (46-116); Anion Gap 5 (5-15); Aspartate Aminotransferase 28 U/L (13-40); BUN/Creatinine Ratio 25.3 (10.0-20.0); Blood Urea Nitrogen 21 mg/dL (9-23); Calcium 8.6 mg/dL (8.7-10.4); Carbon Dioxide 21 mmol/L (20-31); Chloride 110 mmol/L (98-107); Glucose 133 mg/dL (74-106); Magnesium 1.8 mg/dL (1.6-2.6); Sodium 136 mmol/L (136-145)
[2024-05-02 15:36] LABS: Bilirubin, Total 0.8 mg/dL (0.2-1.0); Total Protein 4.5 g/dL (5.7-8.2)
[2024-05-02 15:37] LABS: Alanine Aminotransferase < 9 U/L (7-40)
--- NOTE | 2024-05-02 16:27 | DVHPN2 ---
Progress Note - Dictate Date Seen: May 02, 2024 Has the PT tested + for MRSA If YES, has PT been informed?: No Medical Necessity Reason Pt with a Central, PICC or Fol: Yes Subjective No new complaints No active bleeding reported Improved to 12 Stool for occult blood was reported positive Brain MRI showed acute frontal lobe infarct She has evidence of atherosclerosis and carotid stenosis vital signs Vital Sign Date Time Temp Pulse Resp B/P (MAP) Pulse Ox O2 Delivery O2 Flow Rate FiO2 05/02/24 11:30 98.7 86 16 152/114 (127) 99 98.7 05/02/24 08:01 Room Air* 0 21 Total Intake and Output 05/01/24 05/01/24 05/02/24 15:00 23:00 07:00 Intake Total 50 ml 1300 ml 200 ml Output Total 350 ml 250 ml Balance 50 ml 950 ml -50 ml medications Current Medications Medications Dose Ordered Sig/Edgar Route Start Time Stop Time Status Last Admin Dose Admin Levothyroxine Sodium 125 mcg QAM@0600 PO 04/25/24 06:00 05/02/24 06:07 125 MCG Diagnostic Test (Pha) 1 strip ACHS 04/24/24 22:00 05/02/24 11:21 1 STRIP Insulin Human Regular ACHS SC 04/24/24 22:00 05/02/24 06:11 2 UNITS Dextrose 50 ml UD PRN IV 04/24/24 22:00 Sodium Chloride 10 ml Q8HR IV 04/24/24 22:00 05/02/24 11:24 10 ML Ondansetron HCl 4 mg Q4HP PRN IV 04/24/24 22:00 Docusate Sodium 100 mg BIDPRN PRN PO 04/24/24 22:00 Aspirin 81 mg DAILY PO 04/25/24 10:00 04/30/24 08:40 81 MG Pantoprazole Sodium 40 mg DAILY IV 04/26/24 10:00 05/02/24 08:24 40 MG Piperacillin Sod/ Tazobactam Sod 100 ml @ 25 mls/hr Q6HR IV 04/26/24 18:00 UNV Lactulose 30 ml BID PO 04/26/24 22:00 05/02/24 08:24 30 ML Atorvastatin Calcium 40 mg HS PO 04/27/24 07:00 05/01/24 22:13 40 MG Midodrine 10 mg TID@0600,1200,1800 PRN PO 04/28/24 01:45 04/28/24 06:14 10 MG Calamine 1 applic QIDP PRN TOP 04/28/24 13:45 Ceftriaxone Sodium 50 ml @ 100 mls/hr DAILY@09 IV 04/29/24 09:00 05/02/24 08:24 100 MLS/HR Spironolactone 100 mg DAILY PO 04/29/24 10:00 04/30/24 08:39 100 MG Potassium Bicarbonate 25 meq PRN PO 04/29/24 11:15 Hold Bumetanide 1 mg BID PO 04/29/24 22:00 04/30/24 08:41 1 MG Enteral Nutritional Formula 240 ml BID PO 04/29/24 22:00 05/02/24 08:24 240 ML Clopidogrel Bisulfate 75 mg DAILY PO 05/01/24 10:00 objective General: NAD, AAOX3 Chest: lung white clear to auscultation Heart: RRR, no murmur Abdomen: no tenderness to palpation, +BS laboratory and microbiology Laboratory Tests 05/02/24 14:50 Test 05/02/24 14:50 Range/Units Serum Glucose 133 H 74-106 mg/dL Problems(with codes): (1) Positive occult stool blood test (2) Acute cerebral infarction (3) Anemia, unspecified (4) CHF (congestive heart failure) (5) Pneumonia, unspecified organism Prognosis Plan At this time I recommend conservative management and observation Patient has no active GI bleeding H&H is stable She has also had an acute infarct Maintain on PPI Okay to use aspirin along with a PPI Outpatient follow up with GI Services to discuss elective panendoscopy once stabilized Dietary Evaluation Review Comments: 1) Continue to monitor/assist pt PO intake to meet at least 75% of meals 2) Consider DALTON 1 pkt BID for skin integrity and wounds 3) If pt appetite remains poor consider Ensure Enlive TID with meals 4) Continue current plan of care Expected Outcomes/Goals: 1) Pt appetite to improve 2) F/U in 3-5 days Plan discussed with: Patient REGGIE REYES MD May 02, 2024 16:27
--- NOTE | 2024-05-02 21:24 | DVHPN2 ---
Progress Note - Dictate Date Seen: May 02, 2024 Has the PT tested + for MRSA If YES, has PT been informed?: No Medical Necessity Reason Pt with a Central, PICC or Fol: Yes Subjective Ms. Watters is a 83 years old right-handed female with a history of hypertension, diabetes, hypothyroidism, congestive heart failure, non alcoholic liver cirrhosis, asthma, morbid obesity, the patient came to the [facility] on 04/24/2024 with a chief company of generalized weakness. I have seen and examined the patient, I have discussed with her nurse, she is awake, oriented to person, place, she is confused According to her nurse, the family is not interested in more procedures on the patient Ascites culture, 04/27/2024: No growth Blood culture, 04/26/2024: Urine culture, 04/24/2024: Klebsiella pneumonia knee UDS, 04/26/2024: Negative Plasma alcohol, 04/26/2024: Normal Urinalysis, 04/24/2024: WBC: 91, urine leukocyte esterase: 3+ CBC, 04/24/2024: Unremarkable PT/INR/PTT, 04/26/2028: 15.3/1.49/30.2 BUN/CR, 04/26/2024: 23/1.21 HCO3, 04/24/2024: 19, 04/25/2024: 18, 04/26/2024: 19 TBI/AST/ALT/AP, 04/26/2024: 1.4/20/9/41 Ammonia, 04/26/2024: 67 TG/HDL/LDL/HDL, 04/29/24: 108/112/78/13 Vitamin B12, 04/26/2024: 2375 Folic acid, 04/26/2024: 8.95 TSH, 04/24/24: 24.78 Carotid Doppler, 04/27/2024: Calcified atherosclerotic plaques in the bilateral carotid bulbs, [id number]. There are elevated peak systolic velocities in the left proximal mid internal carotid arteries corresponding to approximately 50-69% stenosis. Further evaluation with CTA neck is recommended. Echocardiogram, 04/26/2024: Normal left ventricular size and dimension. Normal left ventricular systolic function estimated ejection fraction 55%. There is a grade 1 diastolic dysfunction. Normal right ventricular size and dimension. Normal right ventricular systolic function. Normal biatrial size and dimension. There is mild aortic valve sclerosis. There is a moderately severe mitral tricuspid location. There is mild mitral valve regurgitation. Normal tricuspid valve structure and function. The pulmonary valve is grossly normal. No pericardial effusion CT head, 04/24/2024: 1. Bilateral extra-axial fluid collections in the frontal lobes measuring slightly higher than CSF attenuation. These may represent late subacute or chronic subdural hematomas. No mass effect or midline shift. MRI of the brain may be obtained for further evaluation. 2. No evidence of major territory acute infarct CTA neck, head, 04/29/2024: 1. Moderate calcified plaque formation at the left carotid bulb and proximal ICA with 70-80% stenosis. 2. Mild calcified plaque formation at the right carotid bulb and proximal ICA with 50-60% stenosis. 3. Mild calcified plaque formation of the bilateral carotid siphons with approximately 50% stenosis. 4. No dissection or aneurysm noted. 5. No evidence of acute territorial ischemia or intracranial hemorrhage. 6. Small to moderate right pleural effusion MRI head, 04/25/2024: Focus of acute infarct of the left high convexity frontal lobe. The prominent CSF space appears to be from moderate frontal lobe predominant brain atrophy. Right lateral frontotemporal 1.3 x 1.1 cm calcified meningioma vital signs Vital Sign Date Time Temp Pulse Resp B/P (MAP) Pulse Ox O2 Delivery O2 Flow Rate FiO2 05/02/24 16:00 98.9 93 16 96/63 (74) 96 98.9 05/02/24 08:01 Room Air* 0 21 Total Intake and Output 05/01/24 05/01/24 05/02/24 15:00 23:00 07:00 Intake Total 50 ml 1300 ml 200 ml Output Total 350 ml 250 ml Balance 50 ml 950 ml -50 ml medications Current Medications Medications Dose Ordered Sig/Edgar Route Start Time Stop Time Status Last Admin Dose Admin Levothyroxine Sodium 125 mcg QAM@0600 PO 04/25/24 06:00 05/02/24 06:07 125 MCG Diagnostic Test (Pha) 1 strip ACHS 04/24/24 22:00 05/02/24 11:21 1 STRIP Insulin Human Regular ACHS SC 04/24/24 22:00 05/02/24 06:11 2 UNITS Dextrose 50 ml UD PRN IV 04/24/24 22:00 Sodium Chloride 10 ml Q8HR IV 04/24/24 22:00 05/02/24 11:24 10 ML Ondansetron HCl 4 mg Q4HP PRN IV 04/24/24 22:00 Docusate Sodium 100 mg BIDPRN PRN PO 04/24/24 22:00 Aspirin 81 mg DAILY PO 04/25/24 10:00 04/30/24 08:40 81 MG Pantoprazole Sodium 40 mg DAILY IV 04/26/24 10:00 05/02/24 08:24 40 MG Piperacillin Sod/ Tazobactam Sod 100 ml @ 25 mls/hr Q6HR IV 04/26/24 18:00 UNV Lactulose 30 ml BID PO 04/26/24 22:00 05/02/24 08:24 30 ML Atorvastatin Calcium 40 mg HS PO 04/27/24 07:00 05/01/24 22:13 40 MG Midodrine 10 mg TID@0600,1200,1800 PRN PO 04/28/24 01:45 04/28/24 06:14 10 MG Calamine 1 applic QIDP PRN TOP 04/28/24 13:45 Ceftriaxone Sodium 50 ml @ 100 mls/hr DAILY@09 IV 04/29/24 09:00 05/02/24 08:24 100 MLS/HR Spironolactone 100 mg DAILY PO 04/29/24 10:00 04/30/24 08:39 100 MG Potassium Bicarbonate 25 meq PRN PO 04/29/24 11:15 Hold Bumetanide 1 mg BID PO 04/29/24 22:00 04/30/24 08:41 1 MG Enteral Nutritional Formula 240 ml BID PO 04/29/24 22:00 05/02/24 08:24 240 ML Clopidogrel Bisulfate 75 mg DAILY PO 05/01/24 10:00 objective General: the patient is well developed and nourished. No acute distress. MUSCULOSKELETAL EXAM: Multiple bruises in the extremities MENTAL STATUS: Subjective SPEECH, LANGUAGE, HIGHER CORTICAL FUNCTION: no aphasia or dysathria. CRANIAL NERVES: Pupils are equal, round and reactive. EOMs full and conjugate. No nystagmus. Facial sensation intact in all three divisions bilaterally. Mandibular strength intact. Facial muscles symmetrical and strength intact. SENSATION: Sensation to touch and pinprick is normal. MOTOR: Normal tone in the upper and lower extremity. Normal muscle bulk. No fasciculations. No abnormal movements or posturing. Muscle strength of the major groups in the upper extremities is 4-5/5. Muscle strength of the major groups in the lower extremities is 3/5. REFLEXES: Deep tendon reflexes are symmetrical. No pathological reflexes. CEREBELLAR/COORDINATION: Finger to nose is unremarkable bilaterally. GAIT/STATION: deferred. laboratory and microbiology Laboratory Tests 05/02/24 14:50 Test 05/02/24 14:50 Range/Units Serum Glucose 133 H 74-106 mg/dL Problem List Altered mental status, general weakness Hepatic encephalopathy Metabolic encephalopathy Metabolic acidosis Liver failure Urinary tract infection Sepsis Acute left frontal stroke, likely the stroke is asymptomatic Multiple ecchymosis Severe right internal carotid artery stenosis Moderate left internal carotid artery stenosis Anemia, to rule out GI bleeding Assessment/Plan Monitoring Supportive treatment Telemetry IV antibiotics Aspirin 81 mg daily Lipitor 20 mg daily for now Lactulose Room bright during daytime Physical therapy Up to chair GI on case Further address bilateral carotid stenosis later Okay to have endoscopy with GI specialty for a neurologic point of view This medical document was created using an electronic medical record system with [employer] dictation system. Although this document has been carefully reviewed, there may still be some phonetic and typographical errors. These areas are purely typographical due to imperfections of the software programs, and do not reflect any compromise in the patient's medical care. Prognosis poor Dietary Evaluation Review Comments: 1) Continue to monitor/assist pt PO intake to meet at least 75% of meals 2) Consider DALTON 1 pkt BID for skin integrity and wounds 3) If pt appetite remains poor consider Ensure Enlive TID with meals 4) Continue current plan of care Expected Outcomes/Goals: 1) Pt appetite to improve 2) F/U in 3-5 days Plan discussed with: Other DAYLIN MCGRATH MD May 02, 2024 21:24
[2024-05-03 08:00] VITALS: PULSE 80
[2024-05-03] MEDS: MUPIROCIN 2% OINT 15gm or 22gm FOR MRSA NARES EACHNOSTRI SCH (10:00)
--- NOTE | 2024-05-03 11:04 | DVHPN2 ---
Progress Note - Dictate Date Seen: May 03, 2024 Has the PT tested + for MRSA If YES, has PT been informed?: No Medical Necessity Reason Pt with a Central, PICC or Fol: Yes Subjective Ms. Watters is a 83 years old right-handed female with a history of hypertension, diabetes, hypothyroidism, congestive heart failure, non alcoholic liver cirrhosis, asthma, morbid obesity, the patient came to the [facility] on 04/24/2024 with a chief company of generalized weakness. I have seen and examined the patient, I have discussed with her nurse, she is awake, oriented to person, place, she is confused The case was discussed with Dr. Anaya, and Dr. Woodward Ascites culture, 04/27/2024: No growth Blood culture, 04/26/2024: Urine culture, 04/24/2024: Klebsiella pneumonia knee UDS, 04/26/2024: Negative Plasma alcohol, 04/26/2024: Normal Urinalysis, 04/24/2024: WBC: 91, urine leukocyte esterase: 3+ CBC, 04/24/2024: Unremarkable PT/INR/PTT, 04/26/2028: 15.3/1.49/30.2 BUN/CR, 04/26/2024: 23/1.21 HCO3, 04/24/2024: 19, 04/25/2024: 18, 04/26/2024: 19 TBI/AST/ALT/AP, 04/26/2024: 1.4/20/9/41 Ammonia, 04/26/2024: 67 TG/HDL/LDL/HDL, 04/29/24: 108/112/78/13 Vitamin B12, 04/26/2024: 2375 Folic acid, 04/26/2024: 8.95 TSH, 04/24/24: 24.78 Carotid Doppler, 04/27/2024: Calcified atherosclerotic plaques in the bilateral carotid bulbs, [id number]. There are elevated peak systolic velocities in the left proximal mid internal carotid arteries corresponding to approximately 50-69% stenosis. Further evaluation with CTA neck is recommended. Echocardiogram, 04/26/2024: Normal left ventricular size and dimension. Normal left ventricular systolic function estimated ejection fraction 55%. There is a grade 1 diastolic dysfunction. Normal right ventricular size and dimension. Normal right ventricular systolic function. Normal biatrial size and dimension. There is mild aortic valve sclerosis. There is a moderately severe mitral tricuspid location. There is mild mitral valve regurgitation. Normal tricuspid valve structure and function. The pulmonary valve is grossly normal. No pericardial effusion CT head, 04/24/2024: 1. Bilateral extra-axial fluid collections in the frontal lobes measuring slightly higher than CSF attenuation. These may represent late subacute or chronic subdural hematomas. No mass effect or midline shift. MRI of the brain may be obtained for further evaluation. 2. No evidence of major territory acute infarct CTA neck, head, 04/29/2024: 1. Moderate calcified plaque formation at the left carotid bulb and proximal ICA with 70-80% stenosis. 2. Mild calcified plaque formation at the right carotid bulb and proximal ICA with 50-60% stenosis. 3. Mild calcified plaque formation of the bilateral carotid siphons with approximately 50% stenosis. 4. No dissection or aneurysm noted. 5. No evidence of acute territorial ischemia or intracranial hemorrhage. 6. Small to moderate right pleural effusion MRI head, 04/25/2024: Focus of acute infarct of the left high convexity frontal lobe. The prominent CSF space appears to be from moderate frontal lobe predominant brain atrophy. Right lateral frontotemporal 1.3 x 1.1 cm calcified meningioma vital signs Vital Sign Date Time Temp Pulse Resp B/P (MAP) Pulse Ox O2 Delivery O2 Flow Rate FiO2 05/02/24 22:14 102/65 05/02/24 22:00 98.2 84 16 98 98.2 05/02/24 20:00 Nasal Cannula* 2 28 Total Intake and Output 05/02/24 05/02/24 05/03/24 15:00 23:00 07:00 Intake Total 50 ml 1100 ml 125 ml Output Total 350 ml 400 ml Balance 50 ml 750 ml -275 ml medications Current Medications Medications Dose Ordered Sig/Edgar Route Start Time Stop Time Status Last Admin Dose Admin Levothyroxine Sodium 125 mcg QAM@0600 PO 04/25/24 06:00 05/02/24 06:07 125 MCG Diagnostic Test (Pha) 1 strip ACHS 04/24/24 22:00 05/02/24 22:16 1 STRIP Insulin Human Regular ACHS SC 04/24/24 22:00 05/02/24 06:11 2 UNITS Dextrose 50 ml UD PRN IV 04/24/24 22:00 Sodium Chloride 10 ml Q8HR IV 04/24/24 22:00 05/03/24 10:51 10 ML Ondansetron HCl 4 mg Q4HP PRN IV 04/24/24 22:00 Docusate Sodium 100 mg BIDPRN PRN PO 04/24/24 22:00 Aspirin 81 mg DAILY PO 04/25/24 10:00 04/30/24 08:40 81 MG Pantoprazole Sodium 40 mg DAILY IV 04/26/24 10:00 05/03/24 10:40 40 MG Piperacillin Sod/ Tazobactam Sod 100 ml @ 25 mls/hr Q6HR IV 04/26/24 18:00 UNV Lactulose 30 ml BID PO 04/26/24 22:00 05/02/24 08:24 30 ML Atorvastatin Calcium 40 mg HS PO 04/27/24 07:00 05/02/24 22:15 40 MG Midodrine 10 mg TID@0600,1200,1800 PRN PO 04/28/24 01:45 04/28/24 06:14 10 MG Calamine 1 applic QIDP PRN TOP 04/28/24 13:45 Ceftriaxone Sodium 50 ml @ 100 mls/hr DAILY@09 IV 04/29/24 09:00 05/03/24 10:35 100 MLS/HR Spironolactone 100 mg DAILY PO 04/29/24 10:00 04/30/24 08:39 100 MG Potassium Bicarbonate 25 meq PRN PO 04/29/24 11:15 Hold Bumetanide 1 mg BID PO 04/29/24 22:00 05/02/24 22:14 1 MG Enteral Nutritional Formula 240 ml BID PO 04/29/24 22:00 05/03/24 10:49 240 ML Clopidogrel Bisulfate 75 mg DAILY PO 05/01/24 10:00 Mupirocin 1 applic BID EACHNOSTRI 05/03/24 10:00 05/08/24 09:59 05/03/24 10:00 1 APPLIC objective General: the patient is well developed and nourished. No acute distress. MUSCULOSKELETAL EXAM: Multiple bruises in the extremities MENTAL STATUS: Subjective SPEECH, LANGUAGE, HIGHER CORTICAL FUNCTION: no aphasia or dysathria. CRANIAL NERVES: Pupils are equal, round and reactive. EOMs full and conjugate. No nystagmus. Facial sensation intact in all three divisions bilaterally. Mandibular strength intact. Facial muscles symmetrical and strength intact. SENSATION: Sensation to touch and pinprick is normal. MOTOR: Normal tone in the upper and lower extremity. Normal muscle bulk. No fasciculations. No abnormal movements or posturing. Muscle strength of the major groups in the upper extremities is 4-5/5. Muscle strength of the major groups in the lower extremities is 3/5. REFLEXES: Deep tendon reflexes are symmetrical. No pathological reflexes. CEREBELLAR/COORDINATION: Finger to nose is unremarkable bilaterally. GAIT/STATION: deferred. laboratory and microbiology Laboratory Tests 05/02/24 14:50 Test 05/02/24 14:50 Range/Units Serum Glucose 133 H 74-106 mg/dL Problem List Altered mental status, general weakness Hepatic encephalopathy Metabolic encephalopathy Metabolic acidosis Liver failure Urinary tract infection Sepsis Acute left frontal stroke, likely the stroke is asymptomatic Multiple ecchymosis Severe right internal carotid artery stenosis Moderate left internal carotid artery stenosis Anemia, to rule out GI bleeding Assessment/Plan Monitoring Supportive treatment Telemetry Follow-up coagulation panel IV antibiotics Aspirin 81 mg daily Plavix 75 mg daily for now Lipitor 40 mg daily Lactulose Room bright during daytime Physical therapy Up to chair GI on case Further address bilateral carotid stenosis later with vascular surgeon Okay to have endoscopy with GI specialty for a neurologic point of view This medical document was created using an electronic medical record system with [employer] dictation system. Although this document has been carefully reviewed, there may still be some phonetic and typographical errors. These areas are purely typographical due to imperfections of the software programs, and do not reflect any compromise in the patient's medical care. Prognosis poor Dietary Evaluation Review Comments: 1) Continue to monitor/assist pt PO intake to meet at least 75% of meals 2) Consider DALTON 1 pkt BID for skin integrity and wounds 3) If pt appetite remains poor consider Ensure Enlive TID with meals 4) Continue current plan of care Expected Outcomes/Goals: 1) Pt appetite to improve 2) F/U in 3-5 days Plan discussed with: DAYLIN Rojo MD May 03, 2024 11:04
--- NOTE | 2024-05-03 12:48 | DVHPN2 ---
Progress Note Date Seen: May 03, 2024 Has the PT tested + for MRSA If YES, has PT been informed?: No Medical Necessity Reason Pt with a Central, PICC or Fol: Yes Subjective Patient reports: Feels better Objective vital signs Vital Sign Date Time Temp Pulse Resp B/P (MAP) Pulse Ox O2 Delivery O2 Flow Rate FiO2 05/02/24 22:14 102/65 05/02/24 22:00 98.2 84 16 98 98.2 05/02/24 20:00 Nasal Cannula* 2 28 Total Intake and Output 05/02/24 05/02/24 05/03/24 15:00 23:00 07:00 Intake Total 50 ml 1100 ml 125 ml Output Total 350 ml 400 ml Balance 50 ml 750 ml -275 ml medications Current Medications Medications Dose Ordered Sig/Edgar Route Start Time Stop Time Status Last Admin Dose Admin Levothyroxine Sodium 125 mcg QAM@0600 PO 04/25/24 06:00 05/02/24 06:07 125 MCG Diagnostic Test (Pha) 1 strip ACHS 04/24/24 22:00 05/02/24 22:16 1 STRIP Insulin Human Regular ACHS SC 04/24/24 22:00 05/02/24 06:11 2 UNITS Dextrose 50 ml UD PRN IV 04/24/24 22:00 Sodium Chloride 10 ml Q8HR IV 04/24/24 22:00 05/03/24 10:51 10 ML Ondansetron HCl 4 mg Q4HP PRN IV 04/24/24 22:00 Docusate Sodium 100 mg BIDPRN PRN PO 04/24/24 22:00 Aspirin 81 mg DAILY PO 04/25/24 10:00 04/30/24 08:40 81 MG Pantoprazole Sodium 40 mg DAILY IV 04/26/24 10:00 05/03/24 10:40 40 MG Piperacillin Sod/ Tazobactam Sod 100 ml @ 25 mls/hr Q6HR IV 04/26/24 18:00 UNV Lactulose 30 ml BID PO 04/26/24 22:00 05/02/24 08:24 30 ML Atorvastatin Calcium 40 mg HS PO 04/27/24 07:00 05/02/24 22:15 40 MG Midodrine 10 mg TID@0600,1200,1800 PRN PO 04/28/24 01:45 04/28/24 06:14 10 MG Calamine 1 applic QIDP PRN TOP 04/28/24 13:45 Ceftriaxone Sodium 50 ml @ 100 mls/hr DAILY@09 IV 04/29/24 09:00 05/03/24 10:35 100 MLS/HR Spironolactone 100 mg DAILY PO 04/29/24 10:00 04/30/24 08:39 100 MG Potassium Bicarbonate 25 meq PRN PO 04/29/24 11:15 Hold Bumetanide 1 mg BID PO 04/29/24 22:00 05/02/24 22:14 1 MG Enteral Nutritional Formula 240 ml BID PO 04/29/24 22:00 05/03/24 10:49 240 ML Clopidogrel Bisulfate 75 mg DAILY PO 05/01/24 10:00 Mupirocin 1 applic BID EACHNOSTRI 05/03/24 10:00 05/08/24 09:59 05/03/24 10:00 1 APPLIC Examination: GENERAL:Abnormal, HEENT:Abnormal, LUNGS:Abnormal, CVS:Abnormal, ABDOMEN:Abnormal laboratory and microbiology Laboratory Tests 05/02/24 14:50 Test 05/02/24 14:50 Range/Units Serum Glucose 133 H 74-106 mg/dL Microbiology Date/Time Source Procedure Growth Status 04/27/24 08:45 Ascities Fluid Gram Stain - Final Complete 04/27/24 08:45 Ascities Fluid Body Fluid Culture - Final Complete 04/26/24 23:44 Blood Blood Culture - Final NO GROWTH AFTER 5 DAYS OF INCUBATION. Complete 04/25/24 06:15 Nose MRSA Screen - Final Methicillin Resistant S.aureus Complete 04/24/24 13:43 Voided Urine Urine Culture - Final Klebsiella pneumoniae Complete Problem List/Assessment/Plan Problem List/Assessment/Plan severe pad obesity HTN HL s/p paracentesis CKD CVA carotid stenosis carotid lesion is L sided and cva is L sided need clear recommendation of neuro as if this was main cause of cva, she also has intracranial plaque would recommend asa/ plavix statin at this time without aggressive treatment prob higher risk for TCAR if needed in future spoke with dr valdez conservative management for now Plan discussed with: Patient Dietary Evaluation Review Comments: 1) Continue to monitor/assist pt PO intake to meet at least 75% of meals 2) Consider DALTON 1 pkt BID for skin integrity and wounds 3) If pt appetite remains poor consider Ensure Enlive TID with meals 4) Continue current plan of care Expected Outcomes/Goals: 1) Pt appetite to improve 2) F/U in 3-5 days Date of Service: May 03, 2024 Billing Provider: KOBY NOLAN MD Common Visit Codes: NOT BILLABLE KOBY NOLAN MD May 03, 2024 12:48
--- NOTE | 2024-05-03 18:00 | DVHPNRES ---
Progress Note Date Seen: May 03, 2024 Resident Creating Document: BONNY SALMERON JOSS Has the PT tested + for MRSA If YES, has PT been informed?: No Medical Necessity Reason Pt with a Central, PICC or Fol: Yes Subjective Review of Systems Patient seen and examined at the bedside. Patient is feeling will, has fluctuation of mental status. Hb has dropped yesterday, the patient is refusing the blood work. Patient reports: No new complaints Changes from previous H/P or p: No Changes Objective vital signs Vital Sign Date Time Temp Pulse Resp B/P (MAP) Pulse Ox O2 Delivery O2 Flow Rate FiO2 05/03/24 08:00 Nasal Cannula* 2 28 05/03/24 08:00 80 05/02/24 22:14 102/65 05/02/24 22:00 98.2 16 98 98.2 Total Intake and Output 05/02/24 05/02/24 05/03/24 15:00 23:00 07:00 Intake Total 50 ml 1100 ml 125 ml Output Total 350 ml 400 ml Balance 50 ml 750 ml -275 ml medications Current Medications Medications Dose Ordered Sig/Edgar Route Start Time Stop Time Status Last Admin Dose Admin Levothyroxine Sodium 125 mcg QAM@0600 PO 04/25/24 06:00 05/02/24 06:07 125 MCG Diagnostic Test (Pha) 1 strip ACHS 04/24/24 22:00 05/02/24 22:16 1 STRIP Insulin Human Regular ACHS SC 04/24/24 22:00 05/02/24 06:11 2 UNITS Dextrose 50 ml UD PRN IV 04/24/24 22:00 Sodium Chloride 10 ml Q8HR IV 04/24/24 22:00 05/03/24 10:51 10 ML Ondansetron HCl 4 mg Q4HP PRN IV 04/24/24 22:00 Docusate Sodium 100 mg BIDPRN PRN PO 04/24/24 22:00 Aspirin 81 mg DAILY PO 04/25/24 10:00 04/30/24 08:40 81 MG Pantoprazole Sodium 40 mg DAILY IV 04/26/24 10:00 05/03/24 10:40 40 MG Piperacillin Sod/ Tazobactam Sod 100 ml @ 25 mls/hr Q6HR IV 04/26/24 18:00 UNV Lactulose 30 ml BID PO 04/26/24 22:00 05/02/24 08:24 30 ML Atorvastatin Calcium 40 mg HS PO 04/27/24 07:00 05/02/24 22:15 40 MG Midodrine 10 mg TID@0600,1200,1800 PRN PO 04/28/24 01:45 04/28/24 06:14 10 MG Calamine 1 applic QIDP PRN TOP 04/28/24 13:45 Ceftriaxone Sodium 50 ml @ 100 mls/hr DAILY@09 IV 04/29/24 09:00 05/03/24 10:35 100 MLS/HR Spironolactone 100 mg DAILY PO 04/29/24 10:00 04/30/24 08:39 100 MG Potassium Bicarbonate 25 meq PRN PO 04/29/24 11:15 Hold Bumetanide 1 mg BID PO 04/29/24 22:00 05/02/24 22:14 1 MG Enteral Nutritional Formula 240 ml BID PO 04/29/24 22:00 05/03/24 10:49 240 ML Clopidogrel Bisulfate 75 mg DAILY PO 05/01/24 10:00 Mupirocin 1 applic BID EACHNOSTRI 05/03/24 10:00 05/08/24 09:59 05/03/24 10:00 1 APPLIC Examination General Appearance: female lying on the bed, oriented to person and place but not time. Patient has fluctuation of mental status HEENT: Atraumatic, PERRLA, EOMI, Mucous membrane moist/pink Respiratory: Clear to auscultation, Normal air movement Cardiovascular: Regular rate, Normal S1, Normal S2, No murmurs, no chest wall tenderness Abdominal: Normal bowel sounds, Soft, No tenderness, No hepatospenomegaly, No masses Extremities: Bilateral grade 1-2 pedal edema Skin: There are bilateral bruises with scars on the upper limb laboratory and microbiology Laboratory Tests 05/02/24 14:50 Test 05/02/24 14:50 Range/Units Serum Glucose 133 H 74-106 mg/dL Microbiology Date/Time Source Procedure Growth Status 04/27/24 08:45 Ascities Fluid Gram Stain - Final Complete 04/27/24 08:45 Ascities Fluid Body Fluid Culture - Final Complete 04/26/24 23:44 Blood Blood Culture - Final NO GROWTH AFTER 5 DAYS OF INCUBATION. Complete 04/25/24 06:15 Nose MRSA Screen - Final Methicillin Resistant S.aureus Complete 04/24/24 13:43 Voided Urine Urine Culture - Final Klebsiella pneumoniae Complete Labs and/or images reviewed: Labs reviewed by me, Image(s) reviewed by me Problem List/Assessment/Plan Problem List/Assessment/Plan Acute metabolic encephalopathy likely due to UTI/pneumonia/CVA UTI, unspecified location Sepsis likely due to UTI/pneumonia Urinalysis, shows UTI picture Urine culture result shows positive for Klebsiella pneumonia, sensitive to ceftriaxone Blood culture, no growth after 72 hours MRSA screening shows methicillin-resistant Staphylococcus aureus, topical mupirocin Continue Ceftriaxone IV Acute hypoxic respiratory failure, likely due to pneumonia Pneumonia likely due to Gram-positive Gram-negative Chest x-ray shows, multifocal airspace disease, [id number], findings may represent multifocal infection Improving, currently patient maintains saturation at room air Incentive spirometry Physical therapy Up on the chair Volume overload, likely due to acute diastolic heart failure/liver cirrhosis Bilateral lower limb shows pedal edema, improving Cardiology is on the board Echocardiogram shows ,normal left ventricular systolic function estimated ejection fraction 55%. There is a grade 1 diastolic dysfunction. Bumex 1 mg BID Spironolactone 100 mg daily Acute CVA MRI shows, focus of acute infarct of the left high convexity frontal lobe Carotid Doppler shows, calcified atherosclerotic plaques in the bilateral carotid bulbs, [id number]. There are elevated peak systolic velocities in the left proximal mid internal carotid arteries corresponding to approximately 50-69% stenosis. CT of head and neck angiogram shows Moderate calcified plaque formation at the left carotid bulb and proximal ICA with 70-80% stenosis, mild calcified plaque formation at the right carotid bulb and proximal ICA with 50-60% stenosis, mild calcified plaque formation of the bilateral carotid siphons with approximately 50% stenosis Cardiology recommended, need clear recommendation of neuro (high risk for TCAR) as if this was main cause of cva, she also has intracranial plaque, continue aspirin and Plavix BELA and CKD grade 2, improved Nephrology on board, recommended to continue Bumex Suspected GI bleed Suspected acute blood loss anemia- Hemoglobin dropped Hemoglobin dropped to 10.8, improved back to 12 FOB is positive GI and the board, panendoscopy on outpatient basis, once the patient became stabilized medical 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 Abdominal ultrasound shows cirrhosis with ascites Hepatitis a antibody positive Spironolactone 100 mg US-guided paracentesis with 3.1L has been removed, fluid analysis results shows PMN 95 with no growth on culture Today bilirubin raised at 1.7, downtrending Ammonia raised at 67, downtrending Lactulose 30 mL b.i.d., with target bowel movement of 2-3 per day Ruled out spontaneous bacterial peritonitis Consulted IR for the paracentesis; paracentesis done, peritoneal fluid analysis shows 95 and cultures shows no growth Continue ceftriaxone Hiatal Hernia, moderate size CT finding Right-sided pleural effusion CT scan shows, moderate right-sided pleural effusion with associated atelectasis IR consulted, recommended that not at the level to be drained Left lobe atelectasis CT scan shows, left upper and lower lobe atelectasis Right bundle branch block EKG shows right bundle-branch block pattern Continue telemetry Adrenal nodule CT scan showed 1.5 cm right adrenal nodule which may represent an adenoma Follow up on outpatient basis Uncontrolled hypothyroidism TSH is raised at 24.78 Free T4 is normal, free T3 is decreased Continue levothyroxine 125 mEq daily Possible pulmonary artery hypertension, dilated Pulmonary artery, [address] scan showed dilatation of the pulmonary trunk up to 33 mm, correlate for pulmonary arterial hypertension Echocardiogram shows, normal left ventricular systolic function estimated ejection fraction 55%. There is a grade 1 diastolic dysfunction. Hypotension Stop carvedilol Midodrine 10 mg t.i.d. Moderate protein calorie malnutrition 125 g of albumin is given Nutritional supplement Hypomagnesemia Replaced Asthma, stable Breathing treatment p.r.n. Meningioma Brain MRI shows, right lateral frontotemporal 1.3 x 1.1 cm calcified meningioma with prominent CSF space appears to be from moderate frontal lobe predominant brain atrophy Neurology consultation Morbidly obese Hypokalemia, likely due to diuretic Replaced Hypomagnesemia Supplemented Hyperchloremia Monitoring Hematuria, currently urine is clear Monitoring Pancytopenia Improving DVT prophylaxis SCDs Lovenox 40 mg Stress ulcer prevention Protonix Code status Code status discussed with the daughter (POA), the patient is DNR and DNI (but give consent for the IV vasopressor in case of requirement). As per PT, the patient is qualified for the SNF, the patient's chin family refused, the patient's family was consulted for the hospice care, given consent for the home hospice care. The social security specialist on the board for providing home hospice care. Case discussed with Dr. Gordon Plan discussed with: Patient, Daughter (On the bedside), Other (Son) My Orders My Orders Orders - BONNY SALMERON RESDIPHILIPP Procedure Category Date Status Time Mupirocin 2% Oint PHA 05/03/24 In Process Mrsa Nares (Bactroban 10:00 Communication Order ORDERS 05/03/24 Transmitted 11:04 Complete Blood Count LAB 05/04/24 Verified 04:00 Complete Blood Count LAB 05/03/24 Logged 15:11 * Tax Clerk CONS 05/03/24 Transmitted Consult 17:22 Dietary Evaluation Review Comments: 1) Continue to monitor/assist pt PO intake to meet at least 75% of meals 2) Consider DALTON 1 pkt BID for skin integrity and wounds 3) If pt appetite remains poor consider Ensure Enlive TID with meals 4) Continue current plan of care Expected Outcomes/Goals: 1) Pt appetite to improve 2) F/U in 3-5 days BONNY SALMERON RESDIENT May 03, 2024 18:00
[2024-05-03 20:00] VITALS: PULSE 79
[2024-05-04 06:42] LABS: Basophils # (auto) 0 10 ^3/uL (0-0.2); Basophils % (auto) 0.9 % (0.0-2.0); Eosinophils # (auto) 0.2 10 ^3/uL (0-0.8); Eosinophils % (auto) 4.1 % (0.0-7.0); Hematocrit 30.3 % (36.0-46.0); Hemoglobin 9.9 g/dL (12.2-16.2); Lymphocytes # (auto) 0.9 10 ^3/uL (0.4-5.4); Mean Corpuscular Hemoglobin 26.8 pg (28.0-32.0); Mean Corpuscular Hgb Conc. 32.8 g/dL (32.0-36.0); Mean Corpuscular Volume 81.5 fL (80.0-100.0); Monocytes # (auto) 0.9 10 ^3/uL (0-1.3); Monocytes % (auto) 17.4 % (0.0-12.0); Neutrophils # (auto) 3.2 10 ^3/uL (1.6-8.6); Neutrophils % (auto) 60.6 % (37.0-80.0); Nucleated Red Blood Cells % 0.1 %; Platelet Count (auto) 103 10^3/uL (140-450); Red Blood Cells 3.72 10^6/uL (4.0-5.20); Red Cell Distribution Width 17.8 % (11.8-14.3); White Blood Cell 5.3 10^3/uL (4.4-10.8)
[2024-05-04] MEDS: IOHEXOL 350 MG/ML 100ML IJ ONE (07:39)
[2024-05-04 08:00] VITALS: PULSE 96
[2024-05-04] MEDS: FUROSEMIDE 20 MG TAB PO SCH (10:00)
[2024-05-04] MEDS: SPIRONOLACTONE 25 MG TAB PO SCH (10:22)
--- NOTE | 2024-05-04 12:38 | DVHPN2 ---
Progress Note Date Seen: May 04, 2024 Has the PT tested + for MRSA If YES, has PT been informed?: No Medical Necessity Reason Pt with a Central, PICC or Fol: Yes Subjective Patient reports: Feels better Objective vital signs Vital Sign Date Time Temp Pulse Resp B/P (MAP) Pulse Ox O2 Delivery O2 Flow Rate FiO2 05/04/24 07:30 Nasal Cannula* 2 28 05/03/24 22:50 118/62 05/03/24 20:00 79 05/02/24 22:00 98.2 16 98 98.2 Total Intake and Output 05/03/24 05/03/24 05/04/24 15:00 23:00 07:00 Intake Total 50 ml 800 ml 595 ml Output Total 350 ml 450 ml Balance 50 ml 450 ml 145 ml medications Current Medications Medications Dose Ordered Sig/Edgar Route Start Time Stop Time Status Last Admin Dose Admin Levothyroxine Sodium 125 mcg QAM@0600 PO 04/25/24 06:00 05/02/24 06:07 125 MCG Diagnostic Test (Pha) 1 strip ACHS 04/24/24 22:00 05/03/24 22:50 1 STRIP Insulin Human Regular ACHS SC 04/24/24 22:00 05/02/24 06:11 2 UNITS Dextrose 50 ml UD PRN IV 04/24/24 22:00 Sodium Chloride 10 ml Q8HR IV 04/24/24 22:00 05/03/24 22:50 10 ML Ondansetron HCl 4 mg Q4HP PRN IV 04/24/24 22:00 Docusate Sodium 100 mg BIDPRN PRN PO 04/24/24 22:00 Aspirin 81 mg DAILY PO 04/25/24 10:00 05/04/24 10:22 81 MG Pantoprazole Sodium 40 mg DAILY IV 04/26/24 10:00 05/04/24 10:21 40 MG Piperacillin Sod/ Tazobactam Sod 100 ml @ 25 mls/hr Q6HR IV 04/26/24 18:00 UNV Lactulose 30 ml BID PO 04/26/24 22:00 05/02/24 08:24 30 ML Atorvastatin Calcium 40 mg HS PO 04/27/24 07:00 05/03/24 22:48 40 MG Midodrine 10 mg TID@0600,1200,1800 PRN PO 04/28/24 01:45 04/28/24 06:14 10 MG Calamine 1 applic QIDP PRN TOP 04/28/24 13:45 Ceftriaxone Sodium 50 ml @ 100 mls/hr DAILY@09 IV 04/29/24 09:00 05/04/24 10:22 100 MLS/HR Potassium Bicarbonate 25 meq PRN PO 04/29/24 11:15 Hold Enteral Nutritional Formula 240 ml BID PO 04/29/24 22:00 05/04/24 10:22 240 ML Clopidogrel Bisulfate 75 mg DAILY PO 05/01/24 10:00 05/04/24 10:21 75 MG Mupirocin 1 applic BID EACHNOSTRI 05/03/24 10:00 05/08/24 09:59 05/04/24 10:21 1 APPLIC Furosemide 20 mg DAILY PO 05/04/24 10:00 Spironolactone 50 mg DAILY PO 05/04/24 10:00 05/04/24 10:22 50 MG Examination: GENERAL:Abnormal, HEENT:Abnormal, LUNGS:Abnormal, CVS:Abnormal, ABDOMEN:Abnormal laboratory and microbiology Laboratory Tests 05/04/24 06:11 05/02/24 14:50 Test 05/02/24 14:50 Range/Units Serum Glucose 133 H 74-106 mg/dL Microbiology Date/Time Source Procedure Growth Status 04/27/24 08:45 Ascities Fluid Gram Stain - Final Complete 04/27/24 08:45 Ascities Fluid Body Fluid Culture - Final Complete 04/26/24 23:44 Blood Blood Culture - Final NO GROWTH AFTER 5 DAYS OF INCUBATION. Complete 04/25/24 06:15 Nose MRSA Screen - Final Methicillin Resistant S.aureus Complete 04/24/24 13:43 Voided Urine Urine Culture - Final Klebsiella pneumoniae Complete Problem List/Assessment/Plan Problem List/Assessment/Plan severe pad obesity HTN HL s/p paracentesis CKD CVA carotid stenosis carotid lesion is L sided and cva is L sided need clear recommendation of neuro as if this was main cause of cva, she also has intracranial plaque would recommend asa/ plavix statin at this time without aggressive treatment prob higher risk for TCAR if needed in future spoke with dr valdez conservative management for now Plan discussed with: Patient Dietary Evaluation Review Comments: 1) Continue to monitor/assist pt PO intake to meet at least 75% of meals 2) Consider DALTON 1 pkt BID for skin integrity and wounds 3) If pt appetite remains poor consider Ensure Enlive TID with meals 4) Continue current plan of care Expected Outcomes/Goals: 1) Pt appetite to improve 2) F/U in 3-5 days Date of Service: May 04, 2024 Billing Provider: KOBY NOLAN MD Common Visit Codes: NOT BILLABLE KOBY NOLAN MD May 04, 2024 12:38
--- NOTE | 2024-05-04 16:05 | DVHPNRES ---
Progress Note Date Seen: May 04, 2024 Resident Creating Document: BONNY SALMERON JOSS Has the PT tested + for MRSA If YES, has PT been informed?: No Medical Necessity Reason Pt with a Central, PICC or Fol: Yes Subjective Review of Systems Patient seen and examined at the bedside. Patient is feeling will, has fluctuation of mental status. Hb is improved Patient reports: No new complaints Objective vital signs Vital Sign Date Time Temp Pulse Resp B/P (MAP) Pulse Ox O2 Delivery O2 Flow Rate FiO2 05/04/24 07:30 Nasal Cannula* 2 28 05/03/24 22:50 118/62 05/03/24 20:00 79 05/02/24 22:00 98.2 16 98 98.2 Total Intake and Output 05/03/24 05/03/24 05/04/24 15:00 23:00 07:00 Intake Total 50 ml 800 ml 595 ml Output Total 350 ml 450 ml Balance 50 ml 450 ml 145 ml medications Current Medications Medications Dose Ordered Sig/Edgar Route Start Time Stop Time Status Last Admin Dose Admin Levothyroxine Sodium 125 mcg QAM@0600 PO 04/25/24 06:00 05/02/24 06:07 125 MCG Diagnostic Test (Pha) 1 strip ACHS 04/24/24 22:00 05/03/24 22:50 1 STRIP Insulin Human Regular ACHS SC 04/24/24 22:00 05/02/24 06:11 2 UNITS Dextrose 50 ml UD PRN IV 04/24/24 22:00 Sodium Chloride 10 ml Q8HR IV 04/24/24 22:00 05/04/24 13:39 10 ML Ondansetron HCl 4 mg Q4HP PRN IV 04/24/24 22:00 Docusate Sodium 100 mg BIDPRN PRN PO 04/24/24 22:00 Aspirin 81 mg DAILY PO 04/25/24 10:00 05/04/24 10:22 81 MG Pantoprazole Sodium 40 mg DAILY IV 04/26/24 10:00 05/04/24 10:21 40 MG Piperacillin Sod/ Tazobactam Sod 100 ml @ 25 mls/hr Q6HR IV 04/26/24 18:00 UNV Lactulose 30 ml BID PO 04/26/24 22:00 05/02/24 08:24 30 ML Atorvastatin Calcium 40 mg HS PO 04/27/24 07:00 05/03/24 22:48 40 MG Midodrine 10 mg TID@0600,1200,1800 PRN PO 04/28/24 01:45 04/28/24 06:14 10 MG Calamine 1 applic QIDP PRN TOP 04/28/24 13:45 Ceftriaxone Sodium 50 ml @ 100 mls/hr DAILY@09 IV 04/29/24 09:00 05/04/24 10:22 100 MLS/HR Potassium Bicarbonate 25 meq PRN PO 04/29/24 11:15 Hold Enteral Nutritional Formula 240 ml BID PO 04/29/24 22:00 05/04/24 10:22 240 ML Clopidogrel Bisulfate 75 mg DAILY PO 05/01/24 10:00 05/04/24 10:21 75 MG Mupirocin 1 applic BID EACHNOSTRI 05/03/24 10:00 05/08/24 09:59 05/04/24 10:21 1 APPLIC Furosemide 20 mg DAILY PO 05/04/24 10:00 Spironolactone 50 mg DAILY PO 05/04/24 10:00 05/04/24 10:22 50 MG Examination General Appearance: female lying on the bed, oriented to person and place but not time. Patient has fluctuation of mental status HEENT: Atraumatic, PERRLA, EOMI, Mucous membrane moist/pink Respiratory: Clear to auscultation, Normal air movement Cardiovascular: Regular rate, Normal S1, Normal S2, No murmurs, no chest wall tenderness Abdominal: Normal bowel sounds, Soft, No tenderness, No hepatospenomegaly, No masses Extremities: Bilateral grade 1-2 pedal edema Skin: There are bilateral bruises with scars on the upper limb laboratory and microbiology Laboratory Tests 05/04/24 06:11 05/02/24 14:50 Test 05/02/24 14:50 Range/Units Serum Glucose 133 H 74-106 mg/dL Microbiology Date/Time Source Procedure Growth Status 04/27/24 08:45 Ascities Fluid Gram Stain - Final Complete 04/27/24 08:45 Ascities Fluid Body Fluid Culture - Final Complete 04/26/24 23:44 Blood Blood Culture - Final NO GROWTH AFTER 5 DAYS OF INCUBATION. Complete 04/25/24 06:15 Nose MRSA Screen - Final Methicillin Resistant S.aureus Complete 04/24/24 13:43 Voided Urine Urine Culture - Final Klebsiella pneumoniae Complete Labs and/or images reviewed: Labs reviewed by me, Image(s) reviewed by me Problem List/Assessment/Plan Problem List/Assessment/Plan Acute metabolic encephalopathy likely due to UTI/pneumonia/CVA UTI, unspecified location Sepsis likely due to UTI/pneumonia Urinalysis, shows UTI picture Urine culture result shows positive for Klebsiella pneumonia, sensitive to ceftriaxone Blood culture, no growth after 72 hours MRSA screening shows methicillin-resistant Staphylococcus aureus, topical mupirocin Continue Ceftriaxone IV Acute hypoxic respiratory failure, likely due to pneumonia Pneumonia likely due to Gram-positive Gram-negative Chest x-ray shows, multifocal airspace disease, [id number], findings may represent multifocal infection Improving, currently patient maintains saturation at room air Incentive spirometry Physical therapy Up on the chair Volume overload, likely due to acute diastolic heart failure/liver cirrhosis Bilateral lower limb shows pedal edema, improving Cardiology is on the board Echocardiogram shows ,normal left ventricular systolic function estimated ejection fraction 55%. There is a grade 1 diastolic dysfunction. Bumex 1 mg BID Spironolactone 100 mg daily Acute CVA MRI shows, focus of acute infarct of the left high convexity frontal lobe Carotid Doppler shows, calcified atherosclerotic plaques in the bilateral carotid bulbs, [id number]. There are elevated peak systolic velocities in the left proximal mid internal carotid arteries corresponding to approximately 50-69% stenosis. CT of head and neck angiogram shows Moderate calcified plaque formation at the left carotid bulb and proximal ICA with 70-80% stenosis, mild calcified plaque formation at the right carotid bulb and proximal ICA with 50-60% stenosis, mild calcified plaque formation of the bilateral carotid siphons with approximately 50% stenosis Cardiology recommended, need clear recommendation of neuro (high risk for TCAR) as if this was main cause of cva, she also has intracranial plaque, continue aspirin and Plavix BELA and CKD grade 2, improved Nephrology on board, recommended to continue Bumex Suspected GI bleed Suspected acute blood loss anemia- Hemoglobin dropped Hemoglobin dropped to 10.8, improved back to 12 FOB is positive GI and the board, panendoscopy on outpatient basis, once the patient became stabilized medical 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 Abdominal ultrasound shows cirrhosis with ascites Hepatitis a antibody positive Spironolactone 100 mg US-guided paracentesis with 3.1L has been removed, fluid analysis results shows PMN 95 with no growth on culture Today bilirubin raised at 1.7, downtrending Ammonia raised at 67, downtrending Lactulose 30 mL b.i.d., with target bowel movement of 2-3 per day Ruled out spontaneous bacterial peritonitis Consulted IR for the paracentesis; paracentesis done, peritoneal fluid analysis shows 95 and cultures shows no growth Continue ceftriaxone Hiatal Hernia, moderate size CT finding Right-sided pleural effusion CT scan shows, moderate right-sided pleural effusion with associated atelectasis IR consulted, recommended that not at the level to be drained Left lobe atelectasis CT scan shows, left upper and lower lobe atelectasis Right bundle branch block EKG shows right bundle-branch block pattern Continue telemetry Adrenal nodule CT scan showed 1.5 cm right adrenal nodule which may represent an adenoma Follow up on outpatient basis Uncontrolled hypothyroidism TSH is raised at 24.78 Free T4 is normal, free T3 is decreased Continue levothyroxine 125 mEq daily Possible pulmonary artery hypertension, dilated Pulmonary artery, [address] scan showed dilatation of the pulmonary trunk up to 33 mm, correlate for pulmonary arterial hypertension Echocardiogram shows, normal left ventricular systolic function estimated ejection fraction 55%. There is a grade 1 diastolic dysfunction. Hypotension Stop carvedilol Midodrine 10 mg t.i.d. Moderate protein calorie malnutrition 125 g of albumin is given Nutritional supplement Hypomagnesemia Replaced Asthma, stable Breathing treatment p.r.n. Meningioma Brain MRI shows, right lateral frontotemporal 1.3 x 1.1 cm calcified meningioma with prominent CSF space appears to be from moderate frontal lobe predominant brain atrophy Neurology consultation Morbidly obese Hypokalemia, likely due to diuretic Replaced Hypomagnesemia Supplemented Hyperchloremia Monitoring Hematuria, currently urine is clear Monitoring Pancytopenia Improving DVT prophylaxis SCDs Lovenox 40 mg Stress ulcer prevention Protonix Code status Code status discussed with the daughter (POA), the patient is DNR and DNI (but gave consent for the IV vasopressor in case of requirement). As per PT, the patient is qualified for the SNF, the patient's family refused, the patient is is planned to be transferred to home with home health care for home safety/OT/PT. The social media intern on the board for providing home health care. Case discussed with Dr. Gordon Plan discussed with: Patient My Orders My Orders Orders - BONNY SALMERON Procedure Category Date Status Time * Ambulatory Technologist CONS 05/03/24 Transmitted Consult 17:22 Discontinue Tele SABINE 05/04/24 In Process 14:14 Transfer Orders XFER 05/04/24 Transmitted 14:14 Dietary Evaluation Review Comments: 1) Continue to monitor/assist pt PO intake to meet at least 75% of meals 2) Consider DALTON 1 pkt BID for skin integrity and wounds 3) If pt appetite remains poor consider Ensure Enlive TID with meals 4) Continue current plan of care Expected Outcomes/Goals: 1) Pt appetite to improve 2) F/U in 3-5 days Date of Service: May 04, 2024 Billing Provider: JESSE HAUSER MD Common Visit Codes: [id number] INP/OBS CARE(HIGH) BONNY SALMERON RESDIENT May 04, 2024 16:05 JESSE HAUSER MD May 05, 2024 09:51
[2024-05-04 17:00] VITALS: BP 92/40; PULSE 77; RESP 18; TEMP 98.1; O2SAT 96
[2024-05-04 20:55] VITALS: BP 94/41; PULSE 79; RESP 17; TEMP 98.1; O2SAT 93
[2024-05-05] MEDS ORDERED: ATOR20TA50 PO (06:44)
[2024-05-05] MEDS ORDERED: LEVO50TA7 PO (06:44)
[2024-05-05] MEDS ORDERED: NUTR-1405 PO (06:44)
[2024-05-05] MEDS ORDERED: MID10T PO ×2 (06:44→11:05)
[2024-05-05] MEDS ORDERED: PANT40T PO (06:44)
[2024-05-05] MEDS ORDERED: LACT10SO3 PO (06:44)
[2024-05-05] MEDS ORDERED: MUPI2OIN2 EACHNOSTRI (06:44)
[2024-05-05] MEDS ORDERED: FURO20TA4 PO (06:44)
[2024-05-05] MEDS ORDERED: SPIR25TA PO ×2 (06:44→11:05)
[2024-05-05] MEDS ORDERED: ASPI-325 PO (06:44)
--- NOTE | 2024-05-05 07:38 | DVHPN2 ---
Progress Note Date Seen: May 05, 2024 Has the PT tested + for MRSA If YES, has PT been informed?: No Medical Necessity Reason Pt with a Central, PICC or Fol: Yes Subjective Patient reports: Feels better Objective vital signs Vital Sign Date Time Temp Pulse Resp B/P (MAP) Pulse Ox O2 Delivery O2 Flow Rate FiO2 05/04/24 20:55 98.1 79 17 94/41 (58) 93 98.1 05/04/24 20:00 Nasal Cannula* 2 28 Total Intake and Output 05/04/24 05/04/24 05/05/24 14:59 22:59 06:59 Intake Total 50 ml 200 ml 0 ml Output Total 400 ml 200 ml Balance 50 ml -200 ml -200 ml medications Current Medications Medications Dose Ordered Sig/Edgar Route Start Time Stop Time Status Last Admin Dose Admin Levothyroxine Sodium 125 mcg QAM@0600 PO 04/25/24 06:00 05/05/24 05:48 125 MCG Diagnostic Test (Pha) 1 strip ACHS 04/24/24 22:00 05/05/24 05:54 1 STRIP Insulin Human Regular ACHS SC 04/24/24 22:00 05/02/24 06:11 2 UNITS Dextrose 50 ml UD PRN IV 04/24/24 22:00 Sodium Chloride 10 ml Q8HR IV 04/24/24 22:00 05/05/24 05:41 10 ML Ondansetron HCl 4 mg Q4HP PRN IV 04/24/24 22:00 Docusate Sodium 100 mg BIDPRN PRN PO 04/24/24 22:00 Aspirin 81 mg DAILY PO 04/25/24 10:00 05/04/24 10:22 81 MG Pantoprazole Sodium 40 mg DAILY IV 04/26/24 10:00 05/04/24 10:21 40 MG Piperacillin Sod/ Tazobactam Sod 100 ml @ 25 mls/hr Q6HR IV 04/26/24 18:00 UNV Lactulose 30 ml BID PO 04/26/24 22:00 05/02/24 08:24 30 ML Atorvastatin Calcium 40 mg HS PO 04/27/24 07:00 05/04/24 21:33 40 MG Midodrine 10 mg TID@0600,1200,1800 PRN PO 04/28/24 01:45 04/28/24 06:14 10 MG Calamine 1 applic QIDP PRN TOP 04/28/24 13:45 Ceftriaxone Sodium 50 ml @ 100 mls/hr DAILY@09 IV 04/29/24 09:00 05/04/24 10:22 100 MLS/HR Potassium Bicarbonate 25 meq PRN PO 04/29/24 11:15 Hold Enteral Nutritional Formula 240 ml BID PO 04/29/24 22:00 05/04/24 10:22 240 ML Mupirocin 1 applic BID EACHNOSTRI 05/03/24 10:00 05/08/24 09:59 05/04/24 21:28 1 APPLIC Furosemide 20 mg DAILY PO 05/04/24 10:00 Spironolactone 50 mg DAILY PO 05/04/24 10:00 05/04/24 10:22 50 MG Examination: GENERAL:Abnormal, HEENT:Abnormal, LUNGS:Abnormal, CVS:Abnormal, ABDOMEN:Abnormal laboratory and microbiology Laboratory Tests 05/04/24 06:11 05/02/24 14:50 Test 05/02/24 14:50 Range/Units Serum Glucose 133 H 74-106 mg/dL Microbiology Date/Time Source Procedure Growth Status 04/27/24 08:45 Ascities Fluid Gram Stain - Final Complete 04/27/24 08:45 Ascities Fluid Body Fluid Culture - Final Complete 04/26/24 23:44 Blood Blood Culture - Final NO GROWTH AFTER 5 DAYS OF INCUBATION. Complete 04/25/24 06:15 Nose MRSA Screen - Final Methicillin Resistant S.aureus Complete 04/24/24 13:43 Voided Urine Urine Culture - Final Klebsiella pneumoniae Complete Problem List/Assessment/Plan Problem List/Assessment/Plan severe pad obesity HTN HL s/p paracentesis CKD CVA carotid stenosis carotid lesion is L sided and cva is L sided need clear recommendation of neuro as if this was main cause of cva, she also has intracranial plaque would recommend asa/ plavix statin at this time without aggressive treatment prob higher risk for TCAR if needed in future spoke with dr valdez conservative management for now Asa atorvastatin cont midodrine for low bp Plan discussed with: Patient Dietary Evaluation Review Comments: 1) Continue to monitor/assist pt PO intake to meet at least 75% of meals 2) Consider DALTON 1 pkt BID for skin integrity and wounds 3) If pt appetite remains poor consider Ensure Enlive TID with meals 4) Continue current plan of care Expected Outcomes/Goals: 1) Pt appetite to improve 2) F/U in 3-5 days Date of Service: May 05, 2024 Billing Provider: KOBY NOLAN MD Common Visit Codes: NOT BILLABLE KOBY NOLAN MD May 05, 2024 07:38
[2024-05-05 08:00] VITALS: RESP 18
[2024-05-05 09:00] VITALS: BP 113/55; PULSE 80; RESP 19; TEMP 98.1; O2SAT 96
--- NOTE | 2024-05-05 10:37 | DVHPN2 ---
Progress Note - Dictate Date Seen: May 05, 2024 Has the PT tested + for MRSA If YES, has PT been informed?: No Medical Necessity Reason Pt with a Central, PICC or Fol: Yes Subjective Ms. Watters is a 83 years old right-handed female with a history of hypertension, diabetes, hypothyroidism, congestive heart failure, non alcoholic liver cirrhosis, asthma, morbid obesity, the patient came to the [facility] on 04/24/2024 with a chief company of generalized weakness. I have seen and examined the patient, I have discussed with her nurse, she is awake, oriented to person, place, she reported lot of pain in the left foot, and the left foot is swelling, red, and is warmer than the right foot Ascites culture, 04/27/2024: No growth Blood culture, 04/26/2024: Urine culture, 04/24/2024: Klebsiella pneumonia knee UDS, 04/26/2024: Negative Plasma alcohol, 04/26/2024: Normal Urinalysis, 04/24/2024: WBC: 91, urine leukocyte esterase: 3+ CBC, 04/24/2024: Unremarkable PT/INR/PTT, 04/26/2028: 15.3/1.49/30.2 BUN/CR, 04/26/2024: 23/1.21 HCO3, 04/24/2024: 19, 04/25/2024: 18, 04/26/2024: 19 TBI/AST/ALT/AP, 04/26/2024: 1.4/20/9/41 Ammonia, 04/26/2024: 67 TG/HDL/LDL/HDL, 04/29/24: 108/112/78/13 Vitamin B12, 04/26/2024: 2375 Folic acid, 04/26/2024: 8.95 TSH, 04/24/24: 24.78 Carotid Doppler, 04/27/2024: Calcified atherosclerotic plaques in the bilateral carotid bulbs, [id number]. There are elevated peak systolic velocities in the left proximal mid internal carotid arteries corresponding to approximately 50-69% stenosis. Further evaluation with CTA neck is recommended. Echocardiogram, 04/26/2024: Normal left ventricular size and dimension. Normal left ventricular systolic function estimated ejection fraction 55%. There is a grade 1 diastolic dysfunction. Normal right ventricular size and dimension. Normal right ventricular systolic function. Normal biatrial size and dimension. There is mild aortic valve sclerosis. There is a moderately severe mitral tricuspid location. There is mild mitral valve regurgitation. Normal tricuspid valve structure and function. The pulmonary valve is grossly normal. No pericardial effusion CT head, 04/24/2024: 1. Bilateral extra-axial fluid collections in the frontal lobes measuring slightly higher than CSF attenuation. These may represent late subacute or chronic subdural hematomas. No mass effect or midline shift. MRI of the brain may be obtained for further evaluation. 2. No evidence of major territory acute infarct CTA neck, head, 04/29/2024: 1. Moderate calcified plaque formation at the left carotid bulb and proximal ICA with 70-80% stenosis. 2. Mild calcified plaque formation at the right carotid bulb and proximal ICA with 50-60% stenosis. 3. Mild calcified plaque formation of the bilateral carotid siphons with approximately 50% stenosis. 4. No dissection or aneurysm noted. 5. No evidence of acute territorial ischemia or intracranial hemorrhage. 6. Small to moderate right pleural effusion MRI head, 04/25/2024: Focus of acute infarct of the left high convexity frontal lobe. The prominent CSF space appears to be from moderate frontal lobe predominant brain atrophy. Right lateral frontotemporal 1.3 x 1.1 cm calcified meningioma vital signs Vital Sign Date Time Temp Pulse Resp B/P (MAP) Pulse Ox O2 Delivery O2 Flow Rate FiO2 05/05/24 09:23 113/55 05/04/24 20:55 98.1 79 17 93 98.1 05/04/24 20:00 Nasal Cannula* 2 28 Total Intake and Output 05/04/24 05/04/24 05/05/24 15:00 23:00 07:00 Intake Total 50 ml 200 ml 0 ml Output Total 400 ml 200 ml Balance 50 ml -200 ml -200 ml medications Current Medications Medications Dose Ordered Sig/Edgar Route Start Time Stop Time Status Last Admin Dose Admin Levothyroxine Sodium 125 mcg QAM@0600 PO 04/25/24 06:00 05/05/24 05:48 125 MCG Diagnostic Test (Pha) 1 strip ACHS 04/24/24 22:00 05/05/24 05:54 1 STRIP Insulin Human Regular ACHS SC 04/24/24 22:00 05/02/24 06:11 2 UNITS Dextrose 50 ml UD PRN IV 04/24/24 22:00 Sodium Chloride 10 ml Q8HR IV 04/24/24 22:00 05/05/24 05:41 10 ML Ondansetron HCl 4 mg Q4HP PRN IV 04/24/24 22:00 Docusate Sodium 100 mg BIDPRN PRN PO 04/24/24 22:00 Aspirin 81 mg DAILY PO 04/25/24 10:00 05/05/24 09:21 81 MG Pantoprazole Sodium 40 mg DAILY IV 04/26/24 10:00 05/05/24 09:21 40 MG Piperacillin Sod/ Tazobactam Sod 100 ml @ 25 mls/hr Q6HR IV 04/26/24 18:00 UNV Lactulose 30 ml BID PO 04/26/24 22:00 05/02/24 08:24 30 ML Atorvastatin Calcium 40 mg HS PO 04/27/24 07:00 05/04/24 21:33 40 MG Midodrine 10 mg TID@0600,1200,1800 PRN PO 04/28/24 01:45 04/28/24 06:14 10 MG Calamine 1 applic QIDP PRN TOP 04/28/24 13:45 Ceftriaxone Sodium 50 ml @ 100 mls/hr DAILY@09 IV 04/29/24 09:00 05/05/24 09:20 100 MLS/HR Potassium Bicarbonate 25 meq PRN PO 04/29/24 11:15 Hold Enteral Nutritional Formula 240 ml BID PO 04/29/24 22:00 05/05/24 09:22 240 ML Mupirocin 1 applic BID EACHNOSTRI 05/03/24 10:00 05/08/24 09:59 05/05/24 09:24 1 APPLIC Furosemide 20 mg DAILY PO 05/04/24 10:00 05/05/24 09:23 20 MG Spironolactone 50 mg DAILY PO 05/04/24 10:00 05/05/24 09:22 50 MG objective General: the patient is well developed and nourished. No acute distress. MUSCULOSKELETAL EXAM: Multiple bruises in the extremities MENTAL STATUS: Subjective SPEECH, LANGUAGE, HIGHER CORTICAL FUNCTION: no aphasia or dysathria. CRANIAL NERVES: Pupils are equal, round and reactive. EOMs full and conjugate. No nystagmus. Facial sensation intact in all three divisions bilaterally. Mandibular strength intact. Facial muscles symmetrical and strength intact. SENSATION: Sensation to touch and pinprick is normal. MOTOR: Normal tone in the upper and lower extremity. Normal muscle bulk. No fasciculations. No abnormal movements or posturing. Muscle strength of the major groups in the upper extremities is 4-5/5. Muscle strength of the major groups in the lower extremities is 3/5. REFLEXES: Deep tendon reflexes are symmetrical. No pathological reflexes. CEREBELLAR/COORDINATION: Finger to nose is unremarkable bilaterally. GAIT/STATION: deferred. laboratory and microbiology Laboratory Tests 05/04/24 06:11 05/02/24 14:50 Test 05/02/24 14:50 Range/Units Serum Glucose 133 H 74-106 mg/dL Problem List Altered mental status, general weakness Hepatic encephalopathy Metabolic encephalopathy Metabolic acidosis Liver failure Urinary tract infection Sepsis Acute left frontal stroke, likely the stroke is asymptomatic Multiple ecchymosis Severe right internal carotid artery stenosis Moderate left internal carotid artery stenosis Left foot pain Assessment/Plan Monitoring Supportive treatment Telemetry Follow-up coagulation panel CT to the left foot IV antibiotics Aspirin 81 mg daily Plavix 75 mg daily for now Lipitor 40 mg daily Lactulose [place] 5/325 mg q.6 hours p.r.n. for pain Room bright during daytime Physical therapy Up to chair GI on case Further address bilateral carotid stenosis later with vascular surgeon Okay to have endoscopy with GI specialty for a neurologic point of view This medical document was created using an electronic medical record system with [employer] dictation system. Although this document has been carefully reviewed, there may still be some phonetic and typographical errors. These areas are purely typographical due to imperfections of the software programs, and do not reflect any compromise in the patient's medical care. Prognosis poor Dietary Evaluation Review Comments: 1) Continue to monitor/assist pt PO intake to meet at least 75% of meals 2) Consider DALTON 1 pkt BID for skin integrity and wounds 3) If pt appetite remains poor consider Ensure Enlive TID with meals 4) Continue current plan of care Expected Outcomes/Goals: 1) Pt appetite to improve 2) F/U in 3-5 days Plan discussed with: Other DAYLIN MCGRATH MD May 05, 2024 10:37
[2024-05-05] MEDS: HYDROcodone-ACET 5/325MG TAB PO PRN (11:08)
--- NOTE | 2024-05-05 12:58 | DVH ---
Bilateral lower extremity venous duplex Clinical History: rule out DVT Comparison: US BILAT LOW EXT ART DUPLEX on DOS: 11/27/23, US BILAT LOWER DVT on DOS: 11/27/23 Technique: Duplex Doppler evaluation of the deep venous systems of both lower extremities from the common femora l veins to the popliteal veins including color Doppler and spectral/pulsed waveform analysis was perf ormed. Findings: RIGHT SIDE: The common femoral vein demonstrates appropriate compressibility and waveform variability . There is compressibility/patency of the great saphenous vein at the proximal thigh . The femoral vein demonstrates demonstrates incomplete compressibility. The deep femoral vein demonstrates appropriate compressibility and waveform variability . The popliteal vein demonstrates incomplete compressibility. There is incomplete compressibility at the tibioperoneal trunk. LEFT SIDE: The common femoral vein is not compressible. There is incomplete compressibility of the greater saphenous vein. The femoral vein demonstrates incomplete compressibility. The deep femoral vein demonstrates appropriate compressibility and waveform variability . The popliteal vein demonstrates appropriate compressibility and waveform variability . There is incomplete compressibility at the tibioperoneal trunk. 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 Chronic DVT in the right lower extremity in the right femoral vein, right popliteal vein and right po sterior tibial vein. These critical findings were notified by the cytogenetic technologist to the RN at time of the exam.
[2024-05-05 13:19] VITALS: BP 108/50; PULSE 74; RESP 19; TEMP 98.3; O2SAT 100
--- NOTE | 2024-05-05 14:33 | DVH ---
CLINICAL INFORMATION: 83 years old, Female; foot swelling, pain. TECHNIQUE: Axial CT images of the left foot were obtained without IV contrast. Coronal and sagittal r eformatted images were obtained, reviewed, and stored. All CT scans at this medical facility are p erformed using dose modulation techniques as appropriate to a performed exam including the following: Automated exposure control was utilized; adjustment of the MA and/or KV according to patient size; a nd use of iterative reconstruction technique. CTDIvol = 7.89 mGy DLP = 234.2 mGy-cm COMPARISON: No prior imaging of the left foot was available for comparison at the time of dictation. FINDINGS: Moderate subcutaneous edema is seen around the ankle and dorsal aspect of the foot. There i s an obliquely oriented fracture of the distal 5th metatarsal without significant displacement, of un certain age, possibly acute or subacute. There is an osteochondral lesion in the lateral talar dome with associated cortical defect and adjacent ossific density along its lateral aspect measuring up to 9 mm, suspected displaced osseous fragment from the osteochondral defect. IMPRESSION: 1. Osteochondral defect at the lateral talar dome with displaced osseous fragment as described above. 2. Nondisplaced fracture of the distal aspect of the 5th metatarsal, of uncertain age, possibly acute or subacute. Correlate with clinical findings. 3. Moderate subcutaneous edema around the ankle and dorsal aspect of the foot is nonspecific. Differe ntial considerations would include cellulitis, chronic venous stasis changes, or lymphedema.
[2024-05-05 15:02] VITALS: BP 113/55; PULSE 70; RESP 18; TEMP 36.8; O2SAT 96
[2024-05-05] MEDS ORDERED: HYDR-4798 PO (15:58)
[2024-05-05 17:00] VITALS: BP 111/55; PULSE 75; RESP 19; TEMP 98.2; O2SAT 99
--- NOTE | 2024-05-05 17:16 | DVHDSRES ---
Discharge Summary Date of Admission Resident Creating Document: BONNY SALMERON RESDIPHILIPP Apr 24, 2024 at 22:39 Date of Discharge: May 05, 2024 Admitting Diagnosis Generalized weakness Wounds: Labs/Diagnostic Data: Laboratory Results Test 05/05/24 11:22 05/04/24 06:11 05/02/24 14:50 04/30/24 10:38 POC Glucose 176 mg/dl (70-106) White Blood Count 5.3 10^3/uL (4.4-10.8) Red Blood Count 3.72 10^6/uL (4.0-5.20) Hemoglobin 9.9 g/dL (12.2-16.2) Hematocrit 30.3 % (36.0-46.0) Mean Corpuscular Volume 81.5 fL (80.0-100.0) Mean Corpuscular Hemoglobin 26.8 pg (28.0-32.0) Mean Corpuscular Hemoglobin Concent 32.8 g/dL (32.0-36.0) Red Cell Distribution Width 17.8 % (11.8-14.3) Platelet Count 103 10^3/uL (140-450) Mean Platelet Volume 7.8 fL (6.9-10.8) Neutrophils (%) (Auto) 60.6 % (37.0-80.0) Lymphocytes (%) (Auto) 17.0 % (10.0-50.0) Monocytes (%) (Auto) 17.4 % (0.0-12.0) Eosinophils (%) (Auto) 4.1 % (0.0-7.0) Basophils (%) (Auto) 0.9 % (0.0-2.0) Neutrophils # (Auto) 3.2 10 ^3/uL (1.6-8.6) Lymphocytes # (Auto) 0.9 10 ^3/uL (0.4-5.4) Monocytes # (Auto) 0.9 10 ^3/uL (0-1.3) Eosinophils # (Auto) 0.2 10 ^3/uL (0-0.8) Basophils # (Auto) 0 10 ^3/uL (0-0.2) Nucleated Red Blood Cells 0.1 % Sodium Level 136 mmol/L (136-145) Potassium Level 4.0 mmol/L (3.5-5.1) Chloride Level 110 mmol/L (98-107) Carbon Dioxide Level 21 mmol/L (20-31) Anion Gap 5 (5-15) Blood Urea Nitrogen 21 mg/dL (9-23) Creatinine 0.83 mg/dL (0.550-1.02) Glomerular Filtration Rate Calc 70 mL/min (>90) BUN/Creatinine Ratio 25.3 (10.0-20.0) Serum Glucose 133 mg/dL (74-106) Calcium Level 8.6 mg/dL (8.7-10.4) Magnesium Level 1.8 mg/dL (1.6-2.6) Total Bilirubin 0.8 mg/dL (0.2-1.0) Aspartate Amino Transferase (AST) 28 U/L (13-40) Alanine Aminotransferase (ALT) < 9 U/L (7-40) Alkaline Phosphatase 51 U/L (46-116) Total Protein 4.5 g/dL (5.7-8.2) Albumin 2.5 g/dL (3.2-4.8) Prothrombin Time 16.3 sec (9.3-11.8) Prothrombin Time INR 1.59 (0.9-1.15) Activated Partial Thromboplast Time 30.4 SEC (24.5-34.5) Test 04/30/24 06:05 04/29/24 11:51 04/28/24 06:12 04/27/24 10:57 Differential Total Cells Counted 100.0 (100) Neutrophils % (Manual) 64 (37.0-80.0) Band Neutrophils % (Manual) 7 Lymphocytes % (Manual) 16 (10.0-50.0) Monocytes % (Manual) 9 (0-12) Eosinophils % (Manual) 4 (0-7) Basophils % (Manual) 0 (0.0-2.0) Metamyelocytes % (manual) 0 Myelocytes % (Manual) 0 Promyelocytes % (Manual) 0 Blast Cells % (Manual) 0 Reactive Lymphocytes 0 Platelet Estimate Decreased Anisocytosis (manual) Slight Ovalocytes Few Triglycerides Level 108 mg/dL (< 150) Cholesterol Level 112 mg/dL (< 200) LDL Cholesterol 78 mg/dL (< 100) HDL Cholesterol 13 mg/dL (40-59) Direct Bilirubin 0.6 mg/dL (<0.3) Ammonia 35 umol/L (11-32) Vitamin D 25-Hydroxy 38.0 ng/mL (30.0-100) Random Vancomycin Level 16.2 ug/mL (5-10) Hepatitis A Antibody Total Positive (Negative) Hepatitis B Surface Antigen Negative (Negative) Hepatitis B Surface Antibody Negative (Negative) Hepatitis B Core Total Antibody Negative (Negative) Hepatitis C Antibody Negative (Negative) Test 04/27/24 09:37 04/27/24 08:45 04/26/24 23:44 04/26/24 18:33 Stool Occult Blood Positive (Negative) Stool Occult Blood Sample #3 (Negative) Body Fluid Source Peritoneal fluid Body Fluid pH 9.0 Body Fluid WBC (Manual) 134 CUMM (0-200) Body Fluid RBC (Manual) 1397 CUMM (0-2000) Body Fluid Mononuclear Cells 95 % Body Fluid Polymorphonuclear Cells 5 % (0-25) Body Fluid Glucose 143 mg/dL (.) Body Fluid Total Protein 1.4 g/dL (.) Body Fluid Lactate Dehydrogenase 58 IU/L (.) Vitamin B12 Level 2375 pg/mL (211-911) Folic Acid 8.95 ng/mL (>5.38) Parathyroid Hormone (Intact) 52.2 pg/mL (18.4-80.1) Plasma/Serum Blood Alcohol < 3.0 mg/dL (<10) Test 04/26/24 14:04 04/26/24 12:34 04/26/24 11:05 04/25/24 05:20 SARS-CoV-2 Antigen (Rapid) Negative (NEGATIVE) Urine Creatinine 30.17 mg/dL (30.0-125.0) Urine Protein/Creatinine Ratio 1.06 Urine Sodium 75 mmol/L (40-220) Urine Total Protein 32.1 mg/dL (1-14) Urine Opiates Screen Neg (NEGATIVE) Urine Fentanyl Screen Neg (NEGATIVE) Urine Barbiturates Screen Neg (NEGATIVE) Urine Phencyclidine Screen Neg (NEGATIVE) Urine Amphetamines Screen Neg (NEGATIVE) Urine Benzodiazepines Screen Neg (NEGATIVE) Urine Cocaine Screen Neg (NEGATIVE) Urine Cannabinoids Screen Neg (NEGATIVE) Phosphorus Level 3.4 mg/dL (2.4-5.1) Free Thyroxine (T4) Calculated 1.27 ng/dL (0.89-1.76) Thyroxine (T4) 7.8 ug/dL (4.5-12.0) Free Triiodothyronine (T3) pg/mL 1.20 pg/mL (2.3-4.2) Total Triiodothyronine (TT3) 0.57 ng/mL (0.60-1.81) Test 04/24/24 13:43 04/24/24 11:15 Urine Color Yellow (Yellow) Urine Clarity Turbid (Clear) Urine pH 6.5 (5.0-9.0) Urine Specific [place] 1.017 (1.001-1.035) Urine Protein Trace (Negative) Urine Ketones 1+ (Negative) Urine Blood Trace /uL (Negative) Urine Nitrite Negative (Negative) Urine Bilirubin Negative (Negative) Urine Urobilinogen Normal mg/dL (Negative) Urine Leukocyte Esterase 3+ /uL (Negative) Urine RBC 1 /hpf (0 - 4) Urine WBC 91 /hpf (0 - 5) Urine Squamous Epithelial Cells Few /hpf (<5) Urine Bacteria Few /hpf (None Seen) Urine Hyaline Casts Few /lpf (0 - 2) Urine Mucus Few (None Seen) Urine Glucose Normal mg/dL (Normal) Troponin I High Sensitivity 13 ng/L (</=34) B-Type Natriuretic Peptide 58.22 pg/mL (0-100) Thyroid Stimulating Hormone (TSH) 24.78 uIU/mL (0.55-4.78) Other Laboratory Tests 05/04/24 06:11 05/02/24 14:50 Brief Hx & Hospital Course: The patient is an 83-year-old female with a past medical history of asthma, CHF, DM, hypertension, and thyroid disease who presented to [facility] ED for evaluation of generalized weakness. The patients grandson noticed she had increased weakness, fatigue, slurred speech over the past 2 days, and worsening shortness of breath, prompting this visit. In the ED, the patient denied chest pain, headache, dizziness, shortness of breath, nausea, vomiting, fever, and chills. Past Medical History: Asthma, CHF, DM, HTN, thyroid disease Past Surgical History: Noncontributory Family History: Noncontributory Social History: Denies smoking, alcohol, or illicit drug use Home Medications: Fluticasone, furosemide, levothyroxine, methotrexate, tiotropium, apixaban for chronic DVT Allergic History: Sulfa antibiotics On examination in the emergency department, the patient was confused and could not provide a proper history. She had bilateral grade 2 pedal edema and bilateral bruises with scars on the upper limbs. Lab studies showed raised chlorine at 113, creatinine at 1.32, total bilirubin at 1.3, albumin at 3.0, and urinalysis indicated a UTI. A head CT scan showed bilateral extra-axial fluid collections in the frontal lobes measuring slightly higher than CSF attenuation, which may represent late subacute or chronic subdural hematomas with no mass effect or midline shift. The patient was admitted for evaluation of encephalopathy due to UTI/stroke. The patient was given aspirin, clopidogrel, atorvastatin, and continued her medications. She developed sepsis and was started on meropenem, later changed to piperacillin/tazobactam and vancomycin for 3 days, then switched to ceftriaxone and doxycycline. Doxycycline was given for 2 days, and ceftriaxone was continued as the UTI culture came back positive for Klebsiella pneumoniae sensitive to ceftriaxone. Due to MRSA nares positivity, the patient was also given topical mupirocin. MRI showed a lacunar infarct, and Neurology recommended aspirin and Lipitor with no intervention at the moment. A CT angiogram of the head and neck showed left- sided internal carotid artery stenosis (70-80%). Cardiology was consulted and considered the patient high-risk for TCAR. Neurology also recommended follow-up with a neurosurgeon/carrier blower on an outpatient basis for any required procedure. An abdominal ultrasound showed ascites, and 3.1 L of fluid was drained from the peritoneal cavity. The fluid analysis excluded SBP, and the culture did not grow any bacteria. During admission, the patients Hb dropped, and FOB was positive. GI was consulted, and due to the patients unstable condition, recommended outpatient follow-up and possible panendoscopy. By stopping anticoagulants, the patients Hb improved. The patient also had BELA. Nephrology was consulted and recommended Lasix 40 mg daily due to volume overload, later adjusted to Bumex 1 mg b.i.d. During the hospital course, the patients BP dropped, and midodrine 10 mg t.i.d. was started. The patient will also be discharged on this dose. Due to volume overload and bilateral lower limb edema, cardiology was consulted. An echocardiogram showed normal EF (55%) with grade 1 diastolic dysfunction, and diuretic use was recommended. Physical therapy evaluation was performed, and it was recommended that the patient be transferred to an SNF, but the patients family refused. Due to the patients multiple comorbidities and HIV status, hospice care was discussed with the patients family, but they refused. On 05/05/2024, the patient was feeling better since admission, had no active complaints, and the discharge plan was discussed. The patient was discharged home with home health care services for PT/OT and home nurse safety visits. Discharge Plan: Continue aspirin 81 mg daily Continue atorvastatin 40 mg daily Continue furosemide 20 mg daily Continue lactulose 15 mL twice daily Continue midodrine 10 mg three times a day Continue Protonix 40 mg daily Continue spironolactone 100 mg daily Discontinue apixaban Resume the rest of home medications Follow up with the PCP within 1 week after discharge Follow up with GI on an outpatient basis for possible panendoscopy Follow up with Cardiology/vascular surgeon for the possible required procedure for the left internal carotid artery stenosis Consults/Reason for consult Neurology: Stroke GI: GI bleeding Cardiology: Carotid artery stenosis, volume overload Nephrology: BELA Operations or Procedures [place] [id number] Ph: [phone] DIAGNOSTIC IMAGING Diagnostic Imaging Report : [id number] Signed PATIENT: KIKA ODELL ACCT: [id number] UNIT: [id number] : 1940 LOC: [facility] ROOM / BED: [facility] / B AGE / SEX: 83 / F ADM STATUS: ADM IN SERVICE 1312 ORDERING PHYSICIAN: ABIODUN CERVANTES DO PROCEDURE(s): MBHL - BRAIN HEAD WO CONTRAST REASON: dural hemadural ORDER NUMBER(s): [id number], ACCESSION NUMBER(s): [id number] EXAM: MRI BRAIN HEAD WO CONTRAST CLINICAL HISTORY: dural hemadural COMPARISON: CT head 04/24/2024 TECHNIQUE: Multiplanar, multisequence magnetic resonance imaging of the brain was performed without contrast. FINDINGS: Limited evaluation due to motion artifact . Focus of diffusion restriction of the left high convexity frontal lobe. There is prominent bifrontal and anterior middle cranial fossa CSF space measuring up to 1 cm in maximum thickness . Finding is most likely from moderate frontal lobe predominant brain atrophy. 1.3 by 1.1 cm calcified extra-axial dural-based lesion over the mid convexity right lateral fronto temporal region which may represent a calcified meningioma. No acute hemorrhages, no midline shift, or herniation. No evidence of hydrocephalus. The basal cisterns are patent. The vascular flow voids are maintained. The pituitary gland, sella and parasellar regions are unremarkable. The cerebellar tonsils are in normal position. The cerebellum is unremarkable. Bilateral lens replacement. Otherwise, orbits and globes unremarkable. The paranasal sinuses and mastoids are clear. There are no worrisome calvarial lesions. 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 The prominent CSF space appears to be from moderate frontal lobe predominant brain atrophy. Right lateral frontotemporal 1.3 x 1.1 cm calcified meningioma. ATED BY: SUSANNA HUDSON DO DICTATED DATE/TIME: 04/25/241720 SIGNED BY: SUSANNA HUDSON DO SIGNED DATE/TIME: 04/25/241720 CC: [place] [address] Ph: [phone] DIAGNOSTIC IMAGING Diagnostic Imaging Report : [id number] Signed PATIENT: KIKA ODELL ACCT: [id number] UNIT: [id number] : 1940 [facility] AGE / SEX: 83 / F ADM STATUS: ADM IN SERVICE 0700 ORDERING PHYSICIAN: STEPHANIA KILGORE DNP PROCEDURE(s): ABDC - ABDOMEN COMPLETE SONOGRAM REASON: ASCITES,CIRRHOSIS ORDER NUMBER(s): [id number], ACCESSION NUMBER(s): [id number] ULTRASOUND ABDOMEN COMPLETE INDICATION: Pain. TECHNIQUE: Multiple real-time sonographic images of the abdomen were obtained. COMPARISON: None FINDINGS: [Findings] The liver demonstrates lobular contour. The visualized liver parenchyma appears coarse and heterogeneous. The findings are compatible with hepatic cirrhosis. The liver measures 15.4 cm cm. No discrete hepatic lesion or intrahepatic biliary ductal dilatation is identified. There is ascites. There is sludge seen within the gallbladder. .There is no significant gallbladder wall thickening. The common biliary duct is not dilated. The right kidney measures 11.1 cm length. The left kidney measures 11.5 cm. No sonographic evidence of nephrolithiasis or hydronephrosis. There is mild splenomegaly with the spleen measuring 13.8 cm in length. Pancreas is obscured by bowel gas. The abdominal aorta and IVC are also obscured by bowel gas. IMPRESSION: 1. Hepatic cirrhosis with ascites. 2. There is no sonographic evidence of a suspicious appearing hepatic lesion. 3. Mild splenomegaly. 4. Sludge seen within the gallbladder. HS:Y ATED BY: GWEN YEPEZ MD DICTATED DATE/TIME: 04/26/24855 SIGNED BY: GWEN YEPEZ MD SIGNED DATE/TIME: 04/26/24855 CC: [place] [address] Ph: [phone] DIAGNOSTIC IMAGING Diagnostic Imaging Report : [id number] Signed PATIENT: KIKA ODELL ACCT: [id number] UNIT: [id number] : 1940 LOC: [facility] ROOM / BED: [facility] / A AGE / SEX: 83 / F ADM STATUS: ADM IN SERVICE 1423 ORDERING PHYSICIAN: BONNY SALMERON PROCEDURE(s): ECIDC - ECHO 2D MODE CARDIAC DOP REASON: HF? ORDER NUMBER(s): [id number], ACCESSION NUMBER(s): [id number] APPROVED REPORT EXAM: Two-dimensional and M-mode echocardiogram with Doppler and color Doppler. Blood Pressure: 103/54 mmHg INDICATION HF? RISK FACTORS Height: 60, Weight: 224 DIMENSIONS LVDd 4.7 (3.8-5.7cm) LA (2D) 5.3 (1.9-4.0cm) Aortic Root 3.6 (2.0- 3.7cm) LVDs 2.9 (2.5-4.0cm) LA (MM) (1.9-4.0cm) Aortic Cusp Exc 0.9 (1.5- 2.0cm) EF (%) 67.0 (55-70%) Rt. Atrium 3.7 (1.9-4.0cm) Asc. Aorta cm Mitral Valve Mitral Mitral Stenosis E wave 0.70m/s MV Mean GR. 4mmHg A wave 1.25m/s MV Peak GR. 11mmHg E/A ratio 0.6 2D MVA cm2 DECEL Time 224ms PRESS 1/2 Time 81ms IVRT ms Dop MVA 2.72cm2 Aortic Valve Aortic Valve Aortic Stenosis V1 1.27m/s AO Mean GR. 11mmHg V2 2.35m/s AO Peak GR. 22mmHg LVOT Diameter 2.0 (1.8-2.4cm) Doppler ESTRELLA 1.70cm2 Pulmonic Valve V2 1.29m/s Tricuspid Valve TR Velocity 2.28m/s RVSP 24mmHg Other Information Technically limited study due to body habitus. Patient was laying flat on her back. Patient was non compliant during entire study. Conclusion Normal left ventricular size and dimension. Normal left ventricular systolic function estimated ejection fraction 55%. There is a grade 1 diastolic dysfunction. Normal right ventricular size and dimension. Normal right ventricular systolic function. Normal biatrial size and dimension. There is mild aortic valve sclerosis. There is a moderately severe mitral tricuspid location. There is mild mitral valve regurgitation. Normal tricuspid valve structure and function. The pulmonary valve is grossly normal. No pericardial effusion. SIGNED BY: AMIE ROY MD SIGNED DATE/TIME: 04/26/24 1648 CC: [place] [address] Ph: [phone] DIAGNOSTIC IMAGING Diagnostic Imaging Report : [id number] Signed PATIENT: KIKA ODELL ACCT: [id number] UNIT: [id number] : 1940 LOC: [facility] ROOM / BED: 020 / A AGE / SEX: 83 / F ADM STATUS: ADM IN SERVICE 0800 ORDERING PHYSICIAN: BONNY SALMERON PROCEDURE(s): CARCL - CAROTID DUPLX W COLOR DOP REASON: CVA ORDER NUMBER(s): [id number], ACCESSION NUMBER(s): [id number] CAROTID ARTERIAL DOPPLER CLINICAL HISTORY: CVA TECHNIQUE: Doppler study of bilateral carotid/vertebral arteries were performed. Comparison: None FINDINGS: There are calcified atherosclerotic changes in the bilateral carotid bulbs , [id number]. There are elevated peak systolic velocities in the left proximal and mid internal carotid arteries. The bilateral common carotid carotid arteries appear patent without hemodynamically significant stenosis. The spectral wave forms and peak systolic velocities are within normal limits. Antegrade flow is present within the vertebral arteries with appropriate velocities and waveforms. Right ICA/CCA PSV ratio = 1.7. Left ICA/CCA PSV ratio = 2.8 . IMPRESSION: 1. Calcified atherosclerotic plaques in the bilateral carotid bulbs, [id number]. There are elevated peak systolic velocities in the left proximal mid internal carotid arteries corresponding to approximately 50-69% stenosis. Further evaluation with CTA neck is recommended. HS:Y ATED BY: GWEN YEPEZ MD DICTATED DATE/TIME: 04/27/24 1038 SIGNED BY: GWEN YEPEZ MD SIGNED DATE/TIME: 04/27/24 1038 CC: [place] [address] Ph: [phone] DIAGNOSTIC IMAGING Diagnostic Imaging Report : [id number] Signed PATIENT: KIKA ODELL ACCT: [id number] UNIT: [id number] : 1940 LOC: [facility] ROOM / BED: [facility] / A AGE / SEX: 83 / F ADM STATUS: ADM IN SERVICE 1000 ORDERING PHYSICIAN: BONNY SALMERON RESDIPHILIPP PROCEDURE(s): [place] - ANGIO HEAD/Neck REASON: Acute stroke. Recommended based on Carotid Duplex. Thank You ORDER NUMBER(s): [id number], ACCESSION NUMBER(s): [id number] EXAM: CT ANGIO HEAD/NECK HISTORY: Acute stroke. Recommended based on Carotid Duplex. Thank You COMPARISON: None TECHNIQUE: CTA imaging of the head was performed through the [place] following the uneventful administration of intravenous contrast. Sagittal and coronal reformatted images were obtained from the source data. 3D/MIP post- processing of the source data set was performed and reviewed by the radiologist. Radiation Dose Information: CT Dose: CTDI volume is 30.55 mGy. Dose-length product is 1382.12 mGy*cm All CT scans at this medical facility are performed using dose modulation techniques as appropriate to a performed exam including the following: Automated exposure control was utilized; adjustment of the MA and/or KV according to patient size; and use of iterative reconstruction technique. FINDINGS: CTA Neck: Aortic Arch: Conventional branching. Atherosclerotic calcification noted Right brachiocephalic artery: Mild calcified plaque formation. Right carotid artery: Moderate calcified plaque formation at the carotid bulb and proximal ICA with up to 50-60% stenosis. Right subclavian artery: Mild calcified plaque formation. Right vertebral artery: Unremarkable. Left carotid artery: Moderate calcified plaque formation at the carotid bulb and proximal ICA with 70-80% stenosis. Left subclavian artery: Minimal calcified plaque formation. Left vertebral artery: Unremarkable. OTHER: Small to moderate right pleural effusion. Biapical reticular opacities noted that may represent edema or atypical pneumonia. Multilevel degenerative disc disease of the cervical spine. CTA Head: [place]: Atherosclerotic calcification of the bilateral carotid siphons noted with approximately 50% stenosis. The bilateral TRACEY, MCA and lining machine operator are intact and patent. No aneurysm is seen. Basilar artery is patent with minimal calcified plaque formation. Atherosclerotic calcification of the bilateral intracranial vertebral arteries noted without significant stenosis. Dural venous: Grossly unremarkable. Other: None. CT head without contrast: Supratentorial Region: No evidence for large acute territorial ischemia. No intracranial hemorrhage is noted. Posterior Fossa: No acute abnormality. Brainstem: Unremarkable. Sellar/Suprasellar Region: Unremarkable. Ventricles, Cisterns, Sulci: Age-appropriate. Orbits: Unremarkable. Paranasal Sinuses: Unremarkable. Mastoid Air Cells: Unremarkable. Bones/Soft Tissues: No acute abnormality. Other: None. IMPRESSION: 1. Moderate calcified plaque formation at the left carotid bulb and proximal ICA with 70-80% stenosis . 2. Mild calcified plaque formation at the right carotid bulb and proximal ICA with 50-60% stenosis . 3. Mild calcified plaque formation of the bilateral carotid siphons with approximately 50% stenosis. 4. No dissection or aneurysm noted. 5. No evidence of acute territorial ischemia or intracranial hemorrhage. 6. Small to moderate right pleural effusion. ATED BY: ZULEYKA GABRIEL MD DICTATED DATE/TIME: 04/29/24 6592 SIGNED BY: ZULEYKA GABRIEL MD SIGNED DATE/TIME: 04/29/24 6992 CC: [place] [address] Ph: [phone] DIAGNOSTIC IMAGING Diagnostic Imaging Report : [id number] Signed PATIENT: KIKA ODELL ACCT: [id number] UNIT: [id number] : 1940 LOC: [facility] / BED: [facility] / A AGE / SEX: 83 / F ADM STATUS: ADM IN SERVICE 1000 ORDERING PHYSICIAN: BONNY SALMERON RESDIPHILIPP PROCEDURE(s): [place] - ANGIO HEAD/Neck REASON: Acute stroke. Recommended based on Carotid Duplex. Thank You ORDER NUMBER(s): [id number], ACCESSION NUMBER(s): [id number] EXAM: CT ANGIO HEAD/NECK HISTORY: Acute stroke. Recommended based on Carotid Duplex. Thank You COMPARISON: None TECHNIQUE: CTA imaging of the head was performed through the [place] following the uneventful administration of intravenous contrast. Sagittal and coronal reformatted images were obtained from the source data. 3D/MIP post- processing of the source data set was performed and reviewed by the radiologist. Radiation Dose Information: CT Dose: CTDI volume is 30.55 mGy. Dose-length product is 1382.12 mGy*cm All CT scans at this medical facility are performed using dose modulation techniques as appropriate to a performed exam including the following: Automated exposure control was utilized; adjustment of the MA and/or KV according to patient size; and use of iterative reconstruction technique. FINDINGS: CTA Neck: Aortic Arch: Conventional branching. Atherosclerotic calcification noted Right brachiocephalic artery: Mild calcified plaque formation. Right carotid artery: Moderate calcified plaque formation at the carotid bulb and proximal ICA with up to 50-60% stenosis. Right subclavian artery: Mild calcified plaque formation. Right vertebral artery: Unremarkable. Left carotid artery: Moderate calcified plaque formation at the carotid bulb and proximal ICA with 70-80% stenosis. Left subclavian artery: Minimal calcified plaque formation. Left vertebral artery: Unremarkable. OTHER: Small to moderate right pleural effusion. Biapical reticular opacities noted that may represent edema or atypical pneumonia. Multilevel degenerative disc disease of the cervical spine. CTA Head: [place]: Atherosclerotic calcification of the bilateral carotid siphons noted with approximately 50% stenosis. The bilateral TRACEY, MCA and lining machine operator are intact and patent. No aneurysm is seen. Basilar artery is patent with minimal calcified plaque formation. Atherosclerotic calcification of the bilateral intracranial vertebral arteries noted without significant stenosis. Dural venous: Grossly unremarkable. Other: None. CT head without contrast: Supratentorial Region: No evidence for large acute territorial ischemia. No intracranial hemorrhage is noted. Posterior Fossa: No acute abnormality. Brainstem: Unremarkable. Sellar/Suprasellar Region: Unremarkable. Ventricles, Cisterns, Sulci: Age-appropriate. Orbits: Unremarkable. Paranasal Sinuses: Unremarkable. Mastoid Air Cells: Unremarkable. Bones/Soft Tissues: No acute abnormality. Other: None. IMPRESSION: 1. Moderate calcified plaque formation at the left carotid bulb and proximal ICA with 70-80% stenosis . 2. Mild calcified plaque formation at the right carotid bulb and proximal ICA with 50-60% stenosis . 3. Mild calcified plaque formation of the bilateral carotid siphons with approximately 50% stenosis. 4. No dissection or aneurysm noted. 5. No evidence of acute territorial ischemia or intracranial hemorrhage. 6. Small to moderate right pleural effusion. ATED BY: ZULEYKA GABRIEL MD DICTATED DATE/TIME: 04/29/241733 SIGNED BY: ZULEYKA GABRIEL MD SIGNED DATE/TIME: 04/29/241733 CC: [place] [id number] Ph: [phone] DIAGNOSTIC IMAGING Diagnostic Imaging Report : [id number] Signed PATIENT: KIKA ODELL ACCT: [id number] UNIT: [id number] : 1940 LOC: [facility] AGE / SEX: 83 / F ADM STATUS: ADM IN SERVICE 1000 ORDERING PHYSICIAN: BONNY SALMERON PROCEDURE(s): [place] - ANGIO HEAD/Neck REASON: Acute stroke. Recommended based on Carotid Duplex. Thank You ORDER NUMBER(s): [id number], ACCESSION NUMBER(s): [id number] EXAM: CT ANGIO HEAD/NECK HISTORY: Acute stroke. Recommended based on Carotid Duplex. Thank You COMPARISON: None TECHNIQUE: CTA imaging of the head was performed through the [place] following the uneventful administration of intravenous contrast. Sagittal and coronal reformatted images were obtained from the source data. 3D/MIP post- processing of the source data set was performed and reviewed by the radiologist. Radiation Dose Information: CT Dose: CTDI volume is 30.55 mGy. Dose-length product is 1382.12 mGy*cm All CT scans at this medical facility are performed using dose modulation techniques as appropriate to a performed exam including the following: Automated exposure control was utilized; adjustment of the MA and/or KV according to patient size; and use of iterative reconstruction technique. FINDINGS: CTA Neck: Aortic Arch: Conventional branching. Atherosclerotic calcification noted Right brachiocephalic artery: Mild calcified plaque formation. Right carotid artery: Moderate calcified plaque formation at the carotid bulb and proximal ICA with up to 50-60% stenosis. Right subclavian artery: Mild calcified plaque formation. Right vertebral artery: Unremarkable. Left carotid artery: Moderate calcified plaque formation at the carotid bulb and proximal ICA with 70-80% stenosis. Left subclavian artery: Minimal calcified plaque formation. Left vertebral artery: Unremarkable. OTHER: Small to moderate right pleural effusion. Biapical reticular opacities noted that may represent edema or atypical pneumonia. Multilevel degenerative disc disease of the cervical spine. CTA Head: [place]: Atherosclerotic calcification of the bilateral carotid siphons noted with approximately 50% stenosis. The bilateral TRACEY, MCA and lining machine operator are intact and patent. No aneurysm is seen. Basilar artery is patent with minimal calcified plaque formation. Atherosclerotic calcification of the bilateral intracranial vertebral arteries noted without significant stenosis. Dural venous: Grossly unremarkable. Other: None. CT head without contrast: Supratentorial Region: No evidence for large acute territorial ischemia. No intracranial hemorrhage is noted. Posterior Fossa: No acute abnormality. Brainstem: Unremarkable. Sellar/Suprasellar Region: Unremarkable. Ventricles, Cisterns, Sulci: Age-appropriate. Orbits: Unremarkable. Paranasal Sinuses: Unremarkable. Mastoid Air Cells: Unremarkable. Bones/Soft Tissues: No acute abnormality. Other: None. IMPRESSION: 1. Moderate calcified plaque formation at the left carotid bulb and proximal ICA with 70-80% stenosis . 2. Mild calcified plaque formation at the right carotid bulb and proximal ICA with 50-60% stenosis . 3. Mild calcified plaque formation of the bilateral carotid siphons with approximately 50% stenosis. 4. No dissection or aneurysm noted. 5. No evidence of acute territorial ischemia or intracranial hemorrhage. 6. Small to moderate right pleural effusion. ATED BY: ZULEYKA GABRIEL MD DICTATED DATE/TIME: 04/29/241733 SIGNED BY: ZULEYKA GABRIEL MD SIGNED DATE/TIME: 04/29/241733 CC: [place] [id number] Ph: [phone] DIAGNOSTIC IMAGING Diagnostic Imaging Report : [id number] Signed PATIENT: KIKA ODELL ACCT: [id number] UNIT: [id number] : 1940 LOC: [facility]GE / SEX: 83 / F ADM STATUS: ADM IN SERVICE 1000 ORDERING PHYSICIAN: BONYN SALMERON RESDIPHILIPP PROCEDURE(s): [place] - ANGIO HEAD/Neck REASON: Acute stroke. Recommended based on Carotid Duplex. Thank You ORDER NUMBER(s): [id number], ACCESSION NUMBER(s): [id number] EXAM: CT ANGIO HEAD/NECK HISTORY: Acute stroke. Recommended based on Carotid Duplex. Thank You COMPARISON: None TECHNIQUE: CTA imaging of the head was performed through the [place] following the uneventful administration of intravenous contrast. Sagittal and coronal reformatted images were obtained from the source data. 3D/MIP post- processing of the source data set was performed and reviewed by the radiologist. Radiation Dose Information: CT Dose: CTDI volume is 30.55 mGy. Dose-length product is 1382.12 mGy*cm All CT scans at this medical facility are performed using dose modulation techniques as appropriate to a performed exam including the following: Automated exposure control was utilized; adjustment of the MA and/or KV according to patient size; and use of iterative reconstruction technique. FINDINGS: CTA Neck: Aortic Arch: Conventional branching. Atherosclerotic calcification noted Right brachiocephalic artery: Mild calcified plaque formation. Right carotid artery: Moderate calcified plaque formation at the carotid bulb and proximal ICA with up to 50-60% stenosis. Right subclavian artery: Mild calcified plaque formation. Right vertebral artery: Unremarkable. Left carotid artery: Moderate calcified plaque formation at the carotid bulb and proximal ICA with 70-80% stenosis. Left subclavian artery: Minimal calcified plaque formation. Left vertebral artery: Unremarkable. OTHER: Small to moderate right pleural effusion. Biapical reticular opacities noted that may represent edema or atypical pneumonia. Multilevel degenerative disc disease of the cervical spine. CTA Head: [place]: Atherosclerotic calcification of the bilateral carotid siphons noted with approximately 50% stenosis. The bilateral TRACEY, MCA and lining machine operator are intact and patent. No aneurysm is seen. Basilar artery is patent with minimal calcified plaque formation. Atherosclerotic calcification of the bilateral intracranial vertebral arteries noted without significant stenosis. Dural venous: Grossly unremarkable. Other: None. CT head without contrast: Supratentorial Region: No evidence for large acute territorial ischemia. No intracranial hemorrhage is noted. Posterior Fossa: No acute abnormality. Brainstem: Unremarkable. Sellar/Suprasellar Region: Unremarkable. Ventricles, Cisterns, Sulci: Age-appropriate. Orbits: Unremarkable. Paranasal Sinuses: Unremarkable. Mastoid Air Cells: Unremarkable. Bones/Soft Tissues: No acute abnormality. Other: None. IMPRESSION: 1. Moderate calcified plaque formation at the left carotid bulb and proximal ICA with 70-80% stenosis . 2. Mild calcified plaque formation at the right carotid bulb and proximal ICA with 50-60% stenosis . 3. Mild calcified plaque formation of the bilateral carotid siphons with approximately 50% stenosis. 4. No dissection or aneurysm noted. 5. No evidence of acute territorial ischemia or intracranial hemorrhage. 6. Small to moderate right pleural effusion. ATED BY: ZULEYKA GABRIEL MD DICTATED DATE/TIME: 04/29/241733 SIGNED BY: ZULEYKA GABRIEL MD SIGNED DATE/TIME: 04/29/241733 CC: Condition at Discharge: Fair Final Diagnosis/Problems List Acute metabolic encephalopathy likely due to UTI/pneumonia/CVA/hepatic UTI, unspecified location Sepsis likely due to UTI/pneumonia Acute hypoxic respiratory failure, likely due to pneumonia Pneumonia likely due to Gram-positive Gram-negative Volume overload, likely due to acute diastolic heart failure/liver cirrhosis Acute CVA BELA and CKD grade 2, improved GI bleeding, unspecified location 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 Ruled out spontaneous bacterial peritonitis Hiatal Hernia, moderate size Right-sided pleural effusion Left lobe atelectasis Right bundle branch block Adrenal nodule Uncontrolled hypothyroidism Possible pulmonary artery hypertension, dilated Pulmonary artery, 33 mm Hypotension Moderate protein calorie malnutrition Hypomagnesemia Asthma, stable Meningioma Hypokalemia, likely due to diuretic Hypomagnesemia Hyperchloremia Hematuria, currently urine is clear Pancytopenia Peripheral arterial disease Morbid obesity, BMI 44.9 Carotid artery stenosis Paracentesis Multiple ecchymoses Ruled out liver failure Metabolic acidosis Mild Anemia, normocytic hypochromic Congestive heart failure Generalized weakness likely due to sepsis CVA protein calorie malnutrition Diabetic nephropathy Diabetes mellitus type 2 Discharge Disposition: Home with Health Services Discharge Instruct/Medications Diet: Cardiac 2g Na,low cholest Activity: No Restrictions, As Tolerated Follow Up/Referral: Follow up with the PCP within 1 week after discharge. Follow up with the Cardiology/vascular surgeon on outpatient basis for the left internal carotid artery stenosis. Follow up with the GI on outpatient basis for the possible panendoscopy Medications: Aspirin 81 mg daily Atorvastatin 40 mg daily Tablet Furosemide 20 mg daily syrup lactulose 15 mL 2 times daily Tablet spironolactone 100 mg daily Template midodrine 10 mg 3 times daily Protonix 40 mg daily Continue the rest of home medication including levothyroxine, fluticasone/salmeterol) Discharge Statement: "Patient was advised to return to the ER or call 911 if any headaches, dizziness, shortness of breath, chest pain, abdominal pain, bleeding, fevers, or worsening of medical condition. Patient was counseled about treatment plan, medications, possible side effects, patientverbalized understanding. All questions were answered to the best of my ability. This discharge took greater then 30 minutes in planning, reviewing documentation, counseling the patient, and discussing with other team members." ASSESSMENT ASSESSMENT Assessment Metabolic encephalopathy likely due to UTI/stroke Date of Service: May 05, 2024 Billing Provider: JESSE HAUSER MD Common Visit Codes: 70020-EOZ/OBS DISCH DAY >30min FAVIOLATEJINDERDANGELO RESDIENT May 05, 2024 17:16 JESSE HAUSER MD May 06, 2024 19:09
[2024-05-06] MEDS ORDERED: SPIRONOLACTONE 25 MG TAB PO SCH (10:00)
== END 2024-05-05 17:05 | disposition home health service (06) | DRG 64 ==
LOC: EDBD 09:45 → ER 09:45 → TELE 22:39 → TELE-WESTW 23:54 → TELE-CENTR 04-26 16:14
PROVIDERS: ADMIT Student in an Organized Health Care Education/Training Program; ATTEND Emergency Medicine
PROC: 05H933Z Insertion of Infusion Device into Right Brachial Vein, Percutaneous Approach (ICD-10-PCS; 2024-04-24)
PROC: B54MZZA Ultrasonography of Right Upper Extremity Veins, Guidance (ICD-10-PCS; 2024-04-24)
PROC: 0W9G3ZZ Drainage of Peritoneal Cavity, Percutaneous Approach (ICD-10-PCS; principal; 2024-04-27)
DX: I63.9 Cerebral infarction, unspecified (principal); A41.59 Other Gram-negative sepsis; E43 Unspecified severe protein-calorie malnutrition; G93.41 Metabolic encephalopathy; J15.69 Pneumonia due to other Gram-negative bacteria; J15.9 Unspecified bacterial pneumonia; J96.01 Acute respiratory failure with hypoxia; I50.31 Acute diastolic (congestive) heart failure; N39.0 Urinary tract infection, site not specified; E87.20 Acidosis, unspecified; R18.8 Other ascites; N17.9 Acute kidney failure, unspecified; Z68.41 Body mass index [BMI] 40.0-44.9, adult; D61.818 Other pancytopenia; I13.0 Hypertensive heart and chronic kidney disease with heart failure and stage 1 through stage 4 chronic kidney disease, or unspecified chronic kidney disease; B96.1 Klebsiella pneumoniae [K. pneumoniae] as the cause of diseases classified elsewhere; Z20.822 Contact with and (suspected) exposure to COVID-19; Z66 Do not resuscitate; E66.01 Morbid (severe) obesity due to excess calories; E86.0 Dehydration; K76.82 Hepatic encephalopathy; K74.60 Unspecified cirrhosis of liver; D32.9 Benign neoplasm of meninges, unspecified; E11.51 Type 2 diabetes mellitus with diabetic peripheral angiopathy without gangrene; I45.10 Unspecified right bundle-branch block; R47.81 Slurred speech; E03.9 Hypothyroidism, unspecified; I35.8 Other nonrheumatic aortic valve disorders; J45.909 Unspecified asthma, uncomplicated; K72.90 Hepatic failure, unspecified without coma; E87.6 Hypokalemia; E83.42 Hypomagnesemia; E87.8 Other disorders of electrolyte and fluid balance, not elsewhere classified; K44.9 Diaphragmatic hernia without obstruction or gangrene; N18.2 Chronic kidney disease, stage 2 (mild); E11.22 Type 2 diabetes mellitus with diabetic chronic kidney disease; Z79.2 Long term (current) use of antibiotics; Z79.899 Other long term (current) drug therapy; Z98.62 Peripheral vascular angioplasty status; Z79.82 Long term (current) use of aspirin
CPT/HCPCS: 36415; 70450; 70496; 70551; 71045; 71250; 73700; 76700; 76942; 80053; 80061; 80202; 80307; 80320; 81001; 82140; 82248; 82270; 82306; 82570; 82607; 82746; 82962; 83735; 83880; 83970; 83986; 84100; 84156; 84300; 84436; 84439; 84443; 84480; 84481; 84484; 85007; 85025; 85027; 85610; 85730; 86704; 86706; 86708; 86803; 87040; 87081; 87086; 87088; 87186; 87205; 87340; 87426; 89051; 92610; 93005; 93306; 93886; 93970; 96361; 96365; 96375; 97110; 97163; 97530; G0378; J1815; J2185; J2470; J3490; P9047